=== PATIENT | male | born 1970 | race American Indian/Alaskan Native ===

== ENCOUNTER 2018-07-30 18:30 | Inpatient (IN) | payer OTHER, MEDICAID, SELFPAY ==
[2018-07-30 18:56] VITALS: BP 132/92; PULSE 97; RESP 20; TEMP 37.2; O2SAT 99; BMI 31.0
[2018-07-31] VITALS (33 sets, daily range): BP systolic 56–132; BP diastolic 31–96; PULSE 47–136; RESP 10–25; TEMP 36.2–37.5; O2SAT 78–98; BMI 31.0
--- NOTE | 2018-07-31 00:05 | ED.ABDPAIN ---
HPI - Abdominal Pain General Chief Complaint: Abdominal Pain Stated Complaint: severe abdominal pain Time Seen by Provider: 07/30/18 23:55 Source: patient Mode of arrival: ambulatory Limitations: no limitations History of Present Illness HPI narrative: The patient is a 47-year-old male who presents with vomiting and abdominal pain. He has been unable to keep anything down he has some right lower quadrant pain. As he says it started last night he has had some food today but really has vomited at least 5 times awaiting for the ER. His he has a history of kidney stones but has no back pain. He has not had any diarrhea no fever. No one else is sick at home. MD complaint: abdominal pain Related Data Previous Rx's Medication Instructions Recorded hydrocodone-acetaminophen 0 tab PO Q6HP PRN #15 tab 06/05/17 Allergies Allergy/AdvReac Type Severity Reaction Status Date / Time No Known Drug Allergies Allergy Verified 07/30/18 18:59 Review of Systems Review of Systems GENERAL: Denies chills, fatigue, malaise, fever, sweats, travel HEENT: Denies sinus pain, ear pain, sore throat, difficulty swallowing, neck pain RESPIRATORY: Denies dyspnea, cough, wheezing, hemoptysis, sputum. CARDIOVASCULAR: Denies chest pain, palpitations, orthopnea, edema GASTROINTESTINAL: See HPI : Denies dysuria, frequency, incontinence, hematuria, urinary retention, flank pain. MUSCULOSKELETAL: Denies weakness, joint pain, or bony pain SKIN: No rash, no erythema, no pruritus NEUROLOGIC: Denies weakness, dizziness, headache, numbness, change in speech, confusion PSYCHIATRIC: No concerning psychosocial issues. 12 point review of systems is negative except for those stated above and HPI [facility] Medical History Kidney stones (Acute) Tobacco use (Acute) Surgical History History of arthroscopic knee surgery (Acute) Social History Smoking Status: Current every day smoker Social History Smoking Status: Current every day smoker Exam Initial Vital Signs Initial Vital Signs: Vital Signs Temperature 98.9 F 03/16/19 18:56 Pulse Rate 97 H 07/30/18 18:56 Respiratory Rate 20 07/30/18 18:56 Blood Pressure 132/92 H 07/30/18 18:56 Pulse Oximetry 99 07/30/18 18:56 GENERAL: Patient actively vomiting pale diaphoretic HEENT: Head atraumatic,EOMI, pupils reactive, CARDIOVASCULAR: Regular rate and rhythm without murmurs, rubs or gallops. RESPIRATORY: Breath sounds equal bilaterally, no wheezes rales or rhonchi. ABDOMEN: Soft, diffusely tender no guarding no rebound no localization : No CVA tenderness EXTREMITIES: Normal range of motion, no clubbing or edema. Neurovascularly intact NEUROLOGICAL: Alert and oriented x4.Normal gait and speech. Cranial nerves II through XII grossly intact. SKIN: Warm, dry, no laceration, no petechiae, no rashes or lesions. Course Orders Ordered: ED Orders 07/31/18 00:06 CT abdomen pelvis w con Stat 07/31/18 00:30 Complete Blood Count AUTO DIFF Stat Comprehensive Metabolic Panel Stat Lipase Stat 07/31/18 01:33 Blood Culture Stat Lactate (Lactic Acid) Stat 07/31/18 02:17 Urine Drug Screen, Rapid Stat 07/31/18 02:22 Urinalysis and Microscopic Stat 07/31/18 03:50 Type and Screen Stat Sodium Chloride (Normal Saline 0.9%) 1,000 mls @ 1,000 mls/hr IV CONT ESTEE Last Infusion: 07/31/18 01:25 Dose: 0 mls/hr Admin: 07/31/18 00:42 Dose: 1,000 mls/hr Discontinued Medications Hydromorphone HCl (Dilaudid) 0.5 mg IV NOW ONE Stop: 07/31/18 03:03 Last Admin: 07/31/18 03:05 Dose: 0.5 mg Hydromorphone HCl (Dilaudid) 1 mg IV NOW ONE Stop: 07/31/18 03:57 Last Admin: 07/31/18 04:06 Dose: 1 mg Sodium Chloride (Normal Saline 0.9%) 1,000 mls @ 1,000 mls/hr IV BOLUS ONE Stop: 07/31/18 02:03 Last Infusion: 07/31/18 03:56 Dose: 0 mls/hr Admin: 07/31/18 01:30 Dose: 1,000 mls/hr Sodium Chloride (Normal Saline 0.9%) 1,000 mls @ 1,000 mls/hr IV BOLUS ONE Stop: 07/31/18 04:01 Last Admin: 07/31/18 03:06 Dose: 1,000 mls/hr Ketorolac Tromethamine (Toradol) 30 mg IV NOW ONE Stop: 07/31/18 00:06 Last Admin: 07/31/18 00:42 Dose: 30 mg Morphine Sulfate (Morphine) 2 mg IV NOW ONE Stop: 07/31/18 01:13 Last Admin: 07/31/18 01:30 Dose: 2 mg Ondansetron HCl (Zofran) 4 mg IV NOW ONE Stop: 07/31/18 00:06 Last Admin: 07/31/18 00:42 Dose: 4 mg Ondansetron HCl (Zofran) 4 mg IV NOW ONE Stop: 07/31/18 01:13 Last Admin: 07/31/18 02:11 Dose: 4 mg Pantoprazole Sodium (Protonix) 40 mg IV NOW ONE Stop: 07/31/18 00:06 Last Admin: 07/31/18 00:43 Dose: 40 mg Vital Signs - 8 hr 07/31/18 00:52 07/31/18 02:39 07/31/18 03:54 Pulse Rate 136 H 123 H 129 H Respiratory Rate 25 H 17 22 Blood Pressure [Right Arm] 116/84 131/83 132/96 H Pulse Oximetry 92 93 92 MDM - Abdominal Pain Lab Data Attestation: I reviewed the patient's lab results. Result diagrams: 07/31/18 00:30 07/31/18 00:30 Lab Results 07/31/18 07/31/18 07/31/18 Range/Units 00:30 00:30 01:33 WBC 22.4 H (4.5-11.0) X10^3/uL RBC 5.84 (4.5-5.9) X10^6/uL Hgb 17.4 (13.5-17.5) g/dL Hct 52.1 (41-53) % MCV 89.2 (80-100) fL MCH 29.9 (26-34) PG MCHC 33.5 (30-36) % RDW 13.9 (11.6-14.8) % Plt Count 403 H (150-400) X10^3/uL Neut % (Auto) 88.9 H (50-75) % Lymph % (Auto) 4.3 L (25-40) % [place] % (Auto) 6.4 (3-14) % Eos % (Auto) 0.1 L (2-4) % Baso % (Auto) 0.3 (0-2) % Neut # (Auto) 07633 H (3981-5268) /uL Lymph # (Auto) 1000 L (8076-9799) /uL [place] # (Auto) 1400 H (0-900) /uL Eos # (Auto) 0 (0-450) /uL Baso # (Auto) 100 (0-100) /uL Sodium 142 (137-145) mmol/L Potassium 4.2 (3.4-5.1) mmol/L Chloride 98 (98-107) mmol/L Carbon Dioxide 30 (22-32) mmol/L BUN 18 (9-20) mg/dL Creatinine 1.70 H (0.66-1.25) mg/dL Estimated GFR 43.6 L (>60) mL/min BUN/Creatinine Ratio 10.6 (6-22) Glucose 125 H (70-100) mg/dL Lactate 1.3 (0.7-2.1) mmol/L Calcium 10.1 (8.4-10.2) mg/dL Total Bilirubin 1.3 (0.2-1.3) mg/dL AST 29 (17-59) IU/L ALT 26 (21-72) IU/L Alkaline Phosphatase 94 (38-126) U/L Total Protein 8.4 H (6.3-8.2) g/dL Albumin 4.8 (3.5-5.0) g/dL Globulin 3.6 (1.7-4.1) g/dL Albumin/Globulin Ratio 1.3 (1.0-2.8) Lipase 58 (23-300) U/L Urine Color Urine Appearance Urine pH (4.5-8.0) Ur Specific [place] (1.000-1.035) Urine Protein (Negative) Urine Glucose (UA) (Negative) g/dL Urine Ketones (NEGATIVE) Urine Occult Blood (Negative) Urine Nitrate (Negative) Urine Bilirubin (NEGATIVE) Urine Urobilinogen (0.2) E.U./dL Ur Leukocyte Esterase (NEGATIVE) Urine RBC (0-5/HPF) Urine WBC (0-5/HPF) Calcium Oxalate Crystal (None) Urine Bacteria (None) Ur Culture Indicated? 07/31/18 Range/Units 02:22 WBC (4.5-11.0) X10^3/uL RBC (4.5-5.9) X10^6/uL Hgb (13.5-17.5) g/dL Hct (41-53) % MCV (80-100) fL MCH (26-34) PG MCHC (30-36) % RDW (11.6-14.8) % Plt Count (150-400) X10^3/uL Neut % (Auto) (50-75) % Lymph % (Auto) (25-40) % [place] % (Auto) (3-14) % Eos % (Auto) (2-4) % Baso % (Auto) (0-2) % Neut # (Auto) (9654-7325) /uL Lymph # (Auto) (5515-9521) /uL [place] # (Auto) (0-900) /uL Eos # (Auto) (0-450) /uL Baso # (Auto) (0-100) /uL Sodium (137-145) mmol/L Potassium (3.4-5.1) mmol/L Chloride (98-107) mmol/L Carbon Dioxide (22-32) mmol/L BUN (9-20) mg/dL Creatinine (0.66-1.25) mg/dL Estimated GFR (>60) mL/min BUN/Creatinine Ratio (6-22) Glucose (70-100) mg/dL Lactate (0.7-2.1) mmol/L Calcium (8.4-10.2) mg/dL Total Bilirubin (0.2-1.3) mg/dL AST (17-59) IU/L ALT (21-72) IU/L Alkaline Phosphatase (38-126) U/L Total Protein (6.3-8.2) g/dL Albumin (3.5-5.0) g/dL Globulin (1.7-4.1) g/dL Albumin/Globulin Ratio (1.0-2.8) Lipase (23-300) U/L Urine Color Yellow Urine Appearance Clear Urine pH 6.5 (4.5-8.0) Ur Specific [place] 1.010 (1.000-1.035) Urine Protein Trace H (Negative) Urine Glucose (UA) Trace H (Negative) g/dL Urine Ketones Negative (NEGATIVE) Urine Occult Blood Trace-intact (Negative) Urine Nitrate Negative (Negative) Urine Bilirubin Negative (NEGATIVE) Urine Urobilinogen 1.0 (0.2) E.U./dL Ur Leukocyte Esterase Negative (NEGATIVE) Urine RBC 0-1/hpf (0-5/HPF) Urine WBC None seen (0-5/HPF) Calcium Oxalate Crystal Few H (None) Urine Bacteria None seen (None) Ur Culture Indicated? Cult not indicated Imaging Data CT scan - abdomen: Radiologist's impression: retail shift leader report: Free air throughout the abdomen with small amount of ascites worrisome for abdominal viscus perforation. Thickening of the summers of pylorus of the stomach could indicate gastric ulcer as a source of perforation. Cecal wall thickening in. Cecal fluid also noted with normal appearing appendix. Cecal abnormality could also cause of perforation MDM Narrative Medical decision making narrative: Patient persistently tachycardic despite pain meds. Leukocytosis noted. His added on lactate and blood cultures. Lactate is within normal limits. Continues to be intermittently nauseated with some occasional vomiting. Dr. Carlson called notified of patient's symptoms test results and CT results. Dr. Carlson will be in shortly to see and evaluate patient. Patient going directly to OR. Discharge Plan Departure Patient Disposition: Admitted As Inpatient Clinical Impression: Perforation bowel Admit Date/Time: 07/31/18 03:38 Admit Provider: Marquez Carlson
--- NOTE | 2018-07-31 00:06 | DI.CT.S_ITS ---
PROCEDURE: CT ABDOMEN PELVIS W CON INDICATIONS: abdominal pain TECHNIQUE: After the administration of intravenous contrast, 5 mm thick sections acquired from the diaphragm to the symphysis. 5 mm coronal and sagittal reformats were acquired. For radiation dose reduction, the following was used: automated exposure control, adjustment of mA and/or kV according to patient size. COMPARISON: [facility], CT, KIDNEY/ URETER/BLADDER, 03/25/2015, 5:13. FINDINGS: Image quality: Excellent. ABDOMEN: Lung bases: Moderate bibasilar groundglass airspace opacities. Heart size is normal. Solid organs: Liver is normal in size and enhancement. Gallbladder is within normal limits. Biliary system is non dilated. Pancreas enhances normally. Spleen is normal in size and enhancement. No adrenal nodules. Kidneys demonstrate normal size and enhancement, without hydronephrosis. Peritoneum and bowel: The stomach is moderately distended. There is moderate thickening of the gastric antrum, pylorus, and proximal duodenum. Mildly distended and fluid-filled small bowel loops within the left hemiabdomen are present. Appendix is normal. Colon is nondistended. There is a small amount of intermediate density free fluid within the pelvis and perihepatic location. There is a small amount of pneumoperitoneum, predominantly within the upper abdomen. Nodes and vessels: No retroperitoneal or mesenteric adenopathy by size criteria. Aorta and inferior vena cava are normal in size. Miscellaneous: No ventral hernias. PELVIS: Genitourinary: Bladder wall thickness is normal. Miscellaneous: No inguinal hernias or adenopathy. Bones: No suspicious bony lesions. No vertebral body compression fractures. IMPRESSION: 1. Pneumoperitoneum and intermediate density free fluid within the abdomen and pelvis, indicating bowel rupture. Given the upper gastrointestinal tract thickening, this may be the source. 2. Bibasilar pneumonia. 3. Concordant with preliminary interpretation. Dictated by: Ulisses Vilchis M.D. on 07/31/2018 at 10:24 Approved by: Ulisses Vilchis M.D. on 07/31/2018 at 10:28
--- NOTE | 2018-07-31 00:09 | ED_ITS ---
HPI - Abdominal Pain General Chief Complaint: Abdominal Pain Stated Complaint: severe abdominal pain Time Seen by Provider: 07/30/18 23:55 Source: patient Mode of arrival: ambulatory Limitations: no limitations History of Present Illness HPI narrative: The patient is a 47-year-old male who presents with vomiting and abdominal pain. He has been unable to keep anything down he has some right lower quadrant pain. As he says it started last night he has had some food today but really has vomited at least 5 times awaiting for the ER. His he has a history of kidney stones but has no back pain. He has not had any diarrhea no fever. No one else is sick at home. MD complaint: abdominal pain Related Data Previous Rx's Medication Instructions Recorded hydrocodone-acetaminophen 0 tab PO Q6HP PRN #15 tab 06/05/17 Allergies Allergy/AdvReac Type Severity Reaction Status Date / Time No Known Drug Allergies Allergy Verified 07/30/18 18:59 Review of Systems Review of Systems GENERAL: Denies chills, fatigue, malaise, fever, sweats, travel HEENT: Denies sinus pain, ear pain, sore throat, difficulty swallowing, neck pa in RESPIRATORY: Denies dyspnea, cough, wheezing, hemoptysis, sputum. CARDIOVASCULAR: Denies chest pain, palpitations, orthopnea, edema GASTROINTESTINAL: See HPI : Denies dysuria, frequency, incontinence, hematuria, urinary retention, flank pain. MUSCULOSKELETAL: Denies weakness, joint pain, or bony pain SKIN: No rash, no erythema, no pruritus NEUROLOGIC: Denies weakness, dizziness, headache, numbness, change in speech, confusion PSYCHIATRIC: No concerning psychosocial issues. 12 point review of systems is negative except for those stated above and HPI PFSH Medical History Kidney stones (Acute) Tobacco use (Acute) Surgical History History of arthroscopic knee surgery (Acute) Social History Smoking Status: Current every day smoker Social History Smoking Status: Current every day smoker Exam Initial Vital Signs Initial Vital Signs: Vital Signs Temperature 98.9 F 07/30/18 18:56 Pulse Rate 97 H 03/16/19 18:56 Respiratory Rate 20 07/30/18 18:56 Blood Pressure 132/92 H 07/30/18 18:56 Pulse Oximetry 99 07/30/18 18:56 GENERAL: Patient actively vomiting pale diaphoretic HEENT: Head atraumatic,EOMI, pupils reactive, CARDIOVASCULAR: Regular rate and rhythm without murmurs, rubs or gallops. RESPIRATORY: Breath sounds equal bilaterally, no wheezes rales or rhonchi. ABDOMEN: Soft, diffusely tender no guarding no rebound no localization : No CVA tenderness EXTREMITIES: Normal range of motion, no clubbing or edema. Neurovascularly intact NEUROLOGICAL: Alert and oriented x4.Normal gait and speech. Cranial nerves II through XII grossly intact. SKIN: Warm, dry, no laceration, no petechiae, no rashes or lesions. Course Orders Ordered: ED Orders 07/31/18 00:06 CT abdomen pelvis w con Stat 07/31/18 00:30 Complete Blood Count AUTO DIFF Stat Comprehensive Metabolic Panel Stat Lipase Stat 07/31/18 01:33 Blood Culture Stat Lactate (Lactic Acid) Stat 07/31/18 02:17 Urine Drug Screen, Rapid Stat 07/31/18 02:22 Urinalysis and Microscopic Stat 07/31/18 03:50 Type and Screen Stat Sodium Chloride (Normal Saline 0.9%) 1,000 mls @ 1,000 mls/hr IV CONT ESTEE Last Infusion: 07/31/18 01:25 Dose: 0 mls/hr Admin: 07/31/18 00:42 Dose: 1,000 mls/hr Discontinued Medications Hydromorphone HCl (Dilaudid) 0.5 mg IV NOW ONE Stop: 07/31/18 03:03 Last Admin: 07/31/18 03:05 Dose: 0.5 mg Hydromorphone HCl (Dilaudid) 1 mg IV NOW ONE Stop: 07/31/18 03:57 Last Admin: 07/31/18 04:06 Dose: 1 mg Sodium Chloride (Normal Saline 0.9%) 1,000 mls @ 1,000 mls/hr IV BOLUS ONE Stop: 07/31/18 02:03 Last Infusion: 07/31/18 03:56 Dose: 0 mls/hr Admin: 07/31/18 01:30 Dose: 1,000 mls/hr Sodium Chloride (Normal Saline 0.9%) 1,000 mls @ 1,000 mls/hr IV BOLUS ONE Stop: 07/31/18 04:01 Last Admin: 07/31/18 03:06 Dose: 1,000 mls/hr Ketorolac Tromethamine (Toradol) 30 mg IV NOW ONE Stop: 07/31/18 00:06 Last Admin: 07/31/18 00:42 Dose: 30 mg Morphine Sulfate (Morphine) 2 mg IV NOW ONE Stop: 07/31/18 01:13 Last Admin: 07/31/18 01:30 Dose: 2 mg Ondansetron HCl (Zofran) 4 mg IV NOW ONE Stop: 07/31/18 00:06 Last Admin: 07/31/18 00:42 Dose: 4 mg Ondansetron HCl (Zofran) 4 mg IV NOW ONE Stop: 07/31/18 01:13 Last Admin: 07/31/18 02:11 Dose: 4 mg Pantoprazole Sodium (Protonix) 40 mg IV NOW ONE Stop: 07/31/18 00:06 Last Admin: 07/31/18 00:43 Dose: 40 mg Vital Signs - 8 hr 07/31/18 00:52 07/31/18 02:39 07/31/18 03:54 Pulse Rate 136 H 123 H 129 H Respiratory Rate 25 H 17 22 Blood Pressure [Right Arm] 116/84 131/83 132/96 H Pulse Oximetry 92 93 92 MDM - Abdominal Pain Lab Data Attestation: I reviewed the patient's lab results. Result diagrams: 07/31/18 00:30 07/31/18 00:30 Lab Results 07/31/18 07/31/18 07/31/18 Range/Units 00:30 00:30 01:33 WBC 22.4 H (4.5-11.0) X10^3/uL RBC 5.84 (4.5-5.9) X10^6/uL Hgb 17.4 (13.5-17.5) g/dL Hct 52.1 (41-53) % MCV 89.2 (80-100) fL MCH 29.9 (26-34) PG MCHC 33.5 (30-36) % RDW 13.9 (11.6-14.8) % Plt Count 403 H (150-400) X10^3/uL Neut % (Auto) 88.9 H (50-75) % Lymph % (Auto) 4.3 L (25-40) % [place] % (Auto) 6.4 (3-14) % Eos % (Auto) 0.1 L (2-4) % Baso % (Auto) 0.3 (0-2) % Neut # (Auto) 83273 H (3952-4839) /uL Lymph # (Auto) 1000 L (3851-6398) /uL [place] # (Auto) 1400 H (0-900) /uL Eos # (Auto) 0 (0-450) /uL Baso # (Auto) 100 (0-100) /uL Sodium 142 (137-145) mmol/L Potassium 4.2 (3.4-5.1) mmol/L Chloride 98 (98-107) mmol/L Carbon Dioxide 30 (22-32) mmol/L BUN 18 (9-20) mg/dL Creatinine 1.70 H (0.66-1.25) mg/dL Estimated GFR 43.6 L (>60) mL/min BUN/Creatinine Ratio 10.6 (6-22) Glucose 125 H (70-100) mg/dL Lactate 1.3 (0.7-2.1) mmol/L Calcium 10.1 (8.4-10.2) mg/dL Total Bilirubin 1.3 (0.2-1.3) mg/dL AST 29 (17-59) IU/L ALT 26 (21-72) IU/L Alkaline Phosphatase 94 (38-126) U/L Total Protein 8.4 H (6.3-8.2) g/dL Albumin 4.8 (3.5-5.0) g/dL Globulin 3.6 (1.7-4.1) g/dL Albumin/Globulin Ratio 1.3 (1.0-2.8) Lipase 58 (23-300) U/L Urine Color Urine Appearance Urine pH (4.5-8.0) Ur Specific [place] (1.000-1.035) Urine Protein (Negative) Urine Glucose (UA) (Negative) g/dL Urine Ketones (NEGATIVE) Urine Occult Blood (Negative) Urine Nitrate (Negative) Urine Bilirubin (NEGATIVE) Urine Urobilinogen (0.2) E.U./dL Ur Leukocyte Esterase (NEGATIVE) Urine RBC (0-5/HPF) Urine WBC (0-5/HPF) Calcium Oxalate Crystal (None) Urine Bacteria (None) Ur Culture Indicated? 07/31/18 Range/Units 02:22 WBC (4.5-11.0) X10^3/uL RBC (4.5-5.9) X10^6/uL Hgb (13.5-17.5) g/dL Hct (41-53) % MCV (80-100) fL MCH (26-34) PG MCHC (30-36) % RDW (11.6-14.8) % Plt Count (150-400) X10^3/uL Neut % (Auto) (50-75) % Lymph % (Auto) (25-40) % [place] % (Auto) (3-14) % Eos % (Auto) (2-4) % Baso % (Auto) (0-2) % Neut # (Auto) (3827-2697) /uL Lymph # (Auto) (1181-7383) /uL [place] # (Auto) (0-900) /uL Eos # (Auto) (0-450) /uL Baso # (Auto) (0-100) /uL Sodium (137-145) mmol/L Potassium (3.4-5.1) mmol/L Chloride (98-107) mmol/L Carbon Dioxide (22-32) mmol/L BUN (9-20) mg/dL Creatinine (0.66-1.25) mg/dL Estimated GFR (>60) mL/min BUN/Creatinine Ratio (6-22) Glucose (70-100) mg/dL Lactate (0.7-2.1) mmol/L Calcium (8.4-10.2) mg/dL Total Bilirubin (0.2-1.3) mg/dL AST (17-59) IU/L ALT (21-72) IU/L Alkaline Phosphatase (38-126) U/L Total Protein (6.3-8.2) g/dL Albumin (3.5-5.0) g/dL Globulin (1.7-4.1) g/dL Albumin/Globulin Ratio (1.0-2.8) Lipase (23-300) U/L Urine Color Yellow Urine Appearance Clear Urine pH 6.5 (4.5-8.0) Ur Specific [place] 1.010 (1.000-1.035) Urine Protein Trace H (Negative) Urine Glucose (UA) Trace H (Negative) g/dL Urine Ketones Negative (NEGATIVE) Urine Occult Blood Trace-intact (Negative) Urine Nitrate Negative (Negative) Urine Bilirubin Negative (NEGATIVE) Urine Urobilinogen 1.0 (0.2) E.U./dL Ur Leukocyte Esterase Negative (NEGATIVE) Urine RBC 0-1/hpf (0-5/HPF) Urine WBC None seen (0-5/HPF) Calcium Oxalate Crystal Few H (None) Urine Bacteria None seen (None) Ur Culture Indicated? 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 Thickening of the summers of pylorus of the stomach could indicate gastric ulcer as a source of perforation. Cecal wall thickening in. Cecal fluid also noted with normal appearing appendix. Cecal abnormality could also cause of perforation MDM Narrative Medical decision making narrative: Patient persistently tachycardic despite pain meds. Leukocytosis noted. His added on lactate and blood cultures. Lactate is within normal limits. Continues to be intermittently nauseated with some occasional vomiting. Dr. Carlson called notified of patient's symptoms test results and CT results. Dr. Carlson will be in shortly to see and evaluate patient. Patient going directly to OR. Discharge Plan Departure Patient Disposition: Admitted As Inpatient Clinical Impression: Perforation bowel Admit Date/Time: 07/31/18 03:38 Admit Provider: Marquez Carlson
[2018-07-31] MEDS: ONDANSETRON 4 MG/2 ML INJ IV ×2 (00:42→02:11)
[2018-07-31] MEDS: SODIUM CHLORIDE 0.9% 1,000 ML 1000 ML IV ×4 (00:42→10:40)
[2018-07-31] MEDS: KETOROLAC 60 MG/2 ML VIAL 30 MG IV (00:42)
[2018-07-31] MEDS: PANTOPRAZOLE 40 MG VIAL IV ×2 (00:43→06:14)
[2018-07-31 00:46] LABS: Add Manual Diff / Slide Review NO; Basophils Absolute Auto 100 /uL (0-100); Basophils Percent Auto 0.3 % (0-2); Eosinophils Absolute Auto 0 /uL (0-450); Eosinophils Percent Auto 0.1 % (2-4); Hematocrit 52.1 % (41-53); Hemoglobin 17.4 g/dL (13.5-17.5); Lymphocytes Absolute Auto 1000 /uL (1100-4500); Lymphocytes Percent Auto 4.3 % (25-40); Mean Corpuscular HGB Conc 33.5 % (30-36); Mean Corpuscular Hemoglobin 29.9 PG (26-34); Mean Corpuscular Volume 89.2 fL (80-100); Monocytes Absolute Auto 1400 /uL (0-900); Monocytes Percent Auto 6.4 % (3-14); Neutrophils Absolute Auto 19900 /uL (1500-7000); Neutrophils Percent Auto 88.9 % (50-75); Platelet Count 403 X10^3/uL (150-400); Red Blood Cell Count 5.84 X10^6/uL (4.5-5.9); Red Cell Distribution Width 13.9 % (11.6-14.8); White Blood Cell Count 22.4 X10^3/uL (4.5-11.0)
[2018-07-31 00:53] LABS: Alanine Aminotransferase 26 IU/L (21-72); Albumin 4.8 g/dL (3.5-5.0); Albumin Globulin Ratio 1.3 (1.0-2.8); Alkaline Phosphatase 94 U/L (38-126); Aspartate Aminotransferase 29 IU/L (17-59); BUN Creatinine Ratio 10.6 (6-22); Bilirubin Total 1.3 mg/dL (0.2-1.3); Blood Urea Nitrogen 18 mg/dL (9-20); Calcium 10.1 mg/dL (8.4-10.2); Carbon Dioxide 30 mmol/L (22-32); Chloride 98 mmol/L (98-107); Estimated Glomerular Filt Rate 43.6 mL/min (>60); Globulin 3.6 g/dL (1.7-4.1); Glucose 125 mg/dL (70-100); HEMOLYSIS < 15 (0-50); Lipase 58 U/L (23-300); Potassium 4.2 mmol/L (3.4-5.1); Sodium 142 mmol/L (137-145); Total Protein 8.4 g/dL (6.3-8.2)
[2018-07-31] MEDS: MORPHINE 2 MG/ML INJ IV (01:30)
[2018-07-31 01:49] LABS: Lactate (Lactic Acid) 1.3 mmol/L (0.7-2.1)
[2018-07-31 02:38] LABS: Bacteria Urine None Seen; WBC Urine None Seen (0-5/HPF)
[2018-07-31 02:39] LABS: Appearance Urine UA CLEAR; Bilirubin Urine UA NEGATIVE (NEGATIVE); Color Urine UA YELLOW; Glucose Urine UA TRACE g/dL (Negative); Ketones Urine UA NEGATIVE (NEGATIVE); Leukocyte Esterase Urine UA NEGATIVE (NEGATIVE); Nitrite Urine UA NEGATIVE (Negative); Occult Blood Urine UA TRACE-INTACT (Negative); Protein Urine UA TRACE (Negative); pH Urine UA 6.5 (4.5-8.0)
[2018-07-31] MEDS: HYDROMORPHONE 1 MG INJ 0.5 MG IV (03:05)
[2018-07-31 03:20] LABS: Calcium Oxalate Crystals Urine Few; Culture Indicated Urine Cult Not Indicated; RBC Urine 0-1/HPF (0-5/HPF)
[2018-07-31] MEDS: HYDROMORPHONE 0.5 MG INJ 1 MG IV (04:06)
--- NOTE | 2018-07-31 04:11 | PM.HP.1 ---
History of Present Illness Date Patient Seen: 07/31/18 Time Patient Seen: 03:40 Chief complaint: severe abdominal pain Narrative: 47-year-old gentleman who presented the emergency department several hours ago with approximately 36 hr history of acute onset abdominal pain that has been progressive and more severe in nature over the last 12-24 hours. He states that he has never had any kind episodes similar in the past. No fever or chills. He has had some nausea and vomiting earlier today. Describes the emesis is nonbloody and nonbilious. He has been progressively anorexic. He last ate a regular meal yesterday afternoon then drank a small amount of ice tea last night. He has had nothing since. His abdominal pain is described as quite sharp and unrelenting in nature. Pain is exacerbated with ambulation or cough. He has noticed subjective progressive distention of his abdomen as well. No dysuria or hematuria. No flatus throughout the day since last evening. Last bowel movement was yesterday morning and described as normal. No melena, hematochezia, or bright red blood per rectum. Two days ago he states he was in his usual state of health. Currently denies any chest pain or shortness of breath. No back pain. Patient History Medical History Kidney stones (Acute) Tobacco use (Acute) Surgical History History of arthroscopic knee surgery (Acute) Social History Smoking Status: Current every day smoker Family & Social History Safety & Behavioral: Feels Safe in Current Yes Environment Been Physically Hurt or No Threatened By a Person Tobacco & Substance use: Smoking Status Current every day smoker alcohol intake frequency 0-2 drinks per day Substance Use Type marijuana patient and his are essentially homeless and sleep in their vehicle. Meds Home Medications Medication Instructions Recorded Confirmed Type hydrocodone-acetaminophen 0 tab PO Q6HP PRN #15 tab 06/05/17 Rx Allergies Allergy/AdvReac Type Severity Reaction Status Date / Time No Known Drug Allergies Allergy Verified 07/30/18 18:59 Review of Systems Review of Systems All systems reviewed & are unremarkable except as noted in HPI and below Exam Vital Signs (past 8 hours): - 07/31/18 00:52 07/31/18 02:39 07/31/18 03:54 Pulse Rate 136 H 123 H 129 H Respiratory Rate 25 H 17 22 Blood Pressure [Right Arm] 116/84 131/83 132/96 H Pulse Oximetry 92 93 92 Oxygen Delivery Method Room Air Narrative Exam Narrative: Well-nourished well-developed moderately obese male sitting upright on the gurney in the emergency department appearing acutely ill. He is obviously uncomfortable. Mildly tachypneic. He is alert oriented x3 however. Converses normally. is at the bedside for my entire visit. Sclera nonicteric neck is supple chest clear to auscultation although he has diminished breath sounds bilaterally at the bases. Inspiratory effort is minimal due to discomfort. No crackles or wheezes. he is significantly tachycardic with a heart rate in the 120s. Monitor shows him to be in sinus rhythm however. Mildly hypertensive with a diastolic blood pressure of 96. room air saturation 92%. Abdomen is markedly distended and tympanitic. He is diffusely tender. No bowel sounds. He is most tender in the right lateral abdomen with involuntary guarding. However, he is also significantly tender in the epigastrium. Movement of the abdominal wall and pelvis elicit some discomfort consistent with peritoneal irritation. extremities show no clubbing or cyanosis Objective Labs Result Diagrams: 07/31/18 00:30 07/31/18 00:30 Labs: Laboratory Results - last 24 hr 07/31/18 07/31/18 07/31/18 00:30 00:30 01:33 WBC 22.4 H RBC 5.84 Hgb 17.4 Hct 52.1 MCV 89.2 MCH 29.9 MCHC 33.5 RDW 13.9 Plt Count 403 H Neut % (Auto) 88.9 H Lymph % (Auto) 4.3 L [place] % (Auto) 6.4 Eos % (Auto) 0.1 L Baso % (Auto) 0.3 Neut # (Auto) 72365 H Lymph # (Auto) 1000 L [place] # (Auto) 1400 H Eos # (Auto) 0 Baso # (Auto) 100 Sodium 142 Potassium 4.2 Chloride 98 Carbon Dioxide 30 BUN 18 Creatinine 1.70 H Estimated GFR 43.6 L BUN/Creatinine Ratio 10.6 Glucose 125 H Lactate 1.3 Calcium 10.1 Total Bilirubin 1.3 AST 29 ALT 26 Alkaline Phosphatase 94 Total Protein 8.4 H Albumin 4.8 Globulin 3.6 Albumin/Globulin Ratio 1.3 Lipase 58 Urine Color Urine Appearance Urine pH Ur Specific [place] Urine Protein Urine Glucose (UA) Urine Ketones Urine Occult Blood Urine Nitrate Urine Bilirubin Urine Urobilinogen Ur Leukocyte Esterase Urine RBC Urine WBC Calcium Oxalate Crystal Urine Bacteria Ur Culture Indicated? 07/31/18 02:22 WBC RBC Hgb Hct MCV MCH MCHC RDW Plt Count Neut % (Auto) Lymph % (Auto) [place] % (Auto) Eos % (Auto) Baso % (Auto) Neut # (Auto) Lymph # (Auto) [place] # (Auto) Eos # (Auto) Baso # (Auto) Sodium Potassium Chloride Carbon Dioxide BUN Creatinine Estimated GFR BUN/Creatinine Ratio Glucose Lactate Calcium Total Bilirubin AST ALT Alkaline Phosphatase Total Protein Albumin Globulin Albumin/Globulin Ratio Lipase Urine Color Yellow Urine Appearance Clear Urine pH 6.5 Ur Specific [place] 1.010 Urine Protein Trace H Urine Glucose (UA) Trace H Urine Ketones Negative Urine Occult Blood Trace-intact Urine Nitrate Negative Urine Bilirubin Negative Urine Urobilinogen 1.0 Ur Leukocyte Esterase Negative Urine RBC 0-1/hpf Urine WBC None seen Calcium Oxalate Crystal Few H Urine Bacteria None seen Ur Culture Indicated? Cult not indicated I have personally reviewed his CT scan of the abdomen and pelvis done in the emergency department prior to my arrival. Patient has some atelectasis in the bilateral lung wilson. There is free fluid over the dome of the liver and under the diaphragm. There is free air along the falciform ligament and along the gastrohepatic ligament in the lesser sac region. Free air under the diaphragm as well. Thickening of the distal stomach and pylorus are seen. No obvious perforation at that level however. Stomach is dilated containing significant fluid. Small-bowel otherwise appears normal in caliber. Kidneys have nonobstructing calcified stones bilaterally. The sigmoid colon and descending colon appear otherwise normal. There is some thickening around the cecum but the appendix appears to be grossly normal. Great vessels are otherwise unremarkable. Assessment & Plan Assessment & Plan narrative: 47-year-old male with perforated viscus. I suspect perforated ulcer. Possibility of perforated cecal diverticulitis although this would be much less common. I doubt perforated sigmoid diverticulitis but this is also possible. Patient clearly has peritonitis and early onset of sepsis although his lactic acid is currently normal. Nevertheless he is significantly hypovolemic and volume contracted with a creatinine of 1.7 and significant tachycardia. He is in the process of receiving at least his 3rd L of isotonic fluid. Obviously, he requires emergent laparotomy with ongoing fluid resuscitation. I described the nature of that operation to him and his . He clearly will require postoperative ICU care as well. He may also need ventilatory support for some period of time following surgery as we manage his ongoing fluid shifts and sepsis. Again, I discussed this with him. Technical details of laparotomy with potential bowel resection were discussed. I clearly explained, however, that at this point I am not entirely certain as to the site of the perforation. He understands that if this represents perforated ulcer disease that we may be able to simply over-sew and patch the region. If this is perforated diverticulitis that he may require bowel resection with ostomy formation. If ostomy is needed he understands this would be temporary and could be eventually reversed in the future once he has completely recovered and healed. He also understands the risk of not operating would be almost certain due to peritonitis and overwhelming sepsis. He is agreeable to surgery this evening. I have discussed other risks of the operation with him as well. These risks include but are not limited to anesthesia, bleeding, need for transfusion, pain, scar, poor wound healing, wound infection, intra-abdominal infection, abscesses, need for drains, incisional hernias, bowel leakage, bowel injury, ureter injury, bladder injury, need for further procedures, need for further major abdominal surgery were all discussed in detail. I also explained there is a small possibility of . He understands the gravity of the situation, especially given his current physiological status. All questions were answered to his satisfaction, and he agreed to proceed. Consent was placed on the chart. Orders were written.
--- NOTE | 2018-07-31 04:25 | PC.NURSE ---
Attempted to insert NGT with 18 F, was unable to pass. Attempted a second time with 16 F, still was unable to pass tube. access nurse Dana attempted as well, pt vomited copious dark red emesis. Dana stated they will place tube in surgery. Pt transferred to surgery with Dana and HOUSE [employer]ISTRY RN.
--- NOTE | 2018-07-31 04:29 | PM.PREOP ---
Pre-operative Note Interval Note History & Physical reviewed/Exam performed by Physician: Yes Changes to H&P: No H&P completed within 30 days and has changed as indicated here:: Patient seen and examined in the emergency department again in the preoperative area. History physical examination is on the chart. Obviously, there have been no changes within the last hour. We will proceed with emergent laparotomy as planned.
[2018-07-31] MEDS: LACTATED RINGERS 1,000 ML 42 ML IV ×10 (04:35→07:01)
[2018-07-31] MEDS: metroNIDAZOLE 500 MG/100 ML PIGGYBACK 100 MG IV ×3 (04:50→21:17)
[2018-07-31] MEDS: CEFOTETAN 2 GM/50 ML PIGGYBACK IV (05:06)
[2018-07-31 05:33] LABS: Urine Amphetamines Positive (Negative); Urine Barbiturates Negative (Negative); Urine Benzodiazepines Negative (Negative); Urine Cocaine Negative (Negative); Urine MDMA Negative (Negative); Urine Methadone Negative (Negative); Urine Methamphetamines Positive (Negative); Urine Morphine/Opi cutoff 2000 Positive (Negative); Urine Oxycodone Negative (Negative); Urine Phencyclidine Negative (Negative); Urine Tetrahydrocannabinol Positive (Negative); Urine Tricyclic Antidepressant Negative (Negative)
--- NOTE | 2018-07-31 05:42 | SUR.OPER ---
Supine on padded OR bed, head on pillow, arms secured on padded arm boards at <90 degrees abduction, legs uncrossed, safety belt at thigh, tape over blanket over lower legs.
--- NOTE | 2018-07-31 05:45 | SUR.HOLD ---
lATE ENTRY: Pt brought from ER to PACU prior to OR, Dr. Carlson placed NGT and Dr Strauss premedicated pt with Katamine and Midaolam. Pt left for OR soon after in stable condition.
--- NOTE | 2018-07-31 07:52 | SUR.OPER ---
epidural placed at end of case at 0745
--- NOTE | 2018-07-31 08:00 | PM.OP.1 ---
Operative Date/Time/Diagnoses Date of procedure: 07/31/18 Time of procedure: 08:00 Pre-op diagnosis: Perforated viscus Post-op diagnosis: other (Perforated duodenal ulcer in the 1st portion of the anterior wall just beyond the pylorus with gross peritonitis) Procedure & Clinicians Procedure: Exploratory laparotomy with 2 layer closure of perforated duodenal ulcer and omental patch Same procedure as scheduled: Yes Indications: 47-year-old male who presented the emergency department with progressive abdominal pain and nausea. Imaging demonstrated free air throughout the abdomen. Emergency laparotomy was recommended. Surgeon: Marquez Carlson Click Yes if Unassisted: Yes Anesthesia Type: General and Epidural (Placed postoperatively per Anesthesiology for analgesia management) Operative Notes Findings: 1. Gross purulent peritonitis throughout the abdomen extending along the right paracolic gutter into the pelvis 2. Gross leakage of gastric and bilious fluid throughout the entire right upper quadrant and subhepatic space from approximately 1 cm perforated anterior duodenal ulcer 3. Grossly normal liver and gallbladder although the gallbladder was somewhat inflamed due to adjacent peritonitis and perforated ulcer 4. Apparent air tight closure of the ulcer at the conclusion of the case without evidence of leakage Closure Type: primary Specimen(s): other (Peritoneal fluid for Gram stain and culture) Prosthetic devices, grafts, tissues, transplants, or devices: None Applied: drain(s) (Ten Icelandic Jose-Sanchez in subhepatic space adjacent to ulcer repair placed to bulb suction) Estimated Blood Loss (mL): 50 Blood products transfused: none Procedure in detail: After obtaining informed consent the patient was brought to the operating room and placed supine on the table. A nasogastric tube had been inserted in the preoperative area by me personally without difficulty. Patient tolerated it well and there was immediate return of bilious fluid. After decompressing the stomach he was then placed under general anesthesia. A Mendiola catheter was inserted to decompress the urinary bladder. Urine specimen was sent for toxicology screen which subsequently showed positive for opiates, marijuana, and methamphetamine. SCOAP time-out was performed per standard protocol. Abdomen was prepped and draped in usual sterile fashion including Ioban drape. Upper midline incision was created with 10 scalpel blade followed by the Bovie for hemostasis. Dissection was carried down through the subcutaneous tissue to the rectus fascia which was divided in the midline with the Bovie. Underlying peritoneum was entered under direct visualization between tonsil clamps and the surgeons finger was then inserted. Remaining portion of the peritoneum and fascia were then opened for the length of the incision using the Bovie over the surgeon's fingers. There was immediate expression of purulent fluid and bilious fluid consistent with perforated viscus. Specimen was sent for culture. Fluid was then suctioned from the abdomen and palpation of the entire abdominal cavity was then performed. Findings are as above. The perforated ulcer was palpable along the 1st portion of the duodenum just beyond the pylorus. Bookwalter retractor was used to provide exposure. The stomach itself appeared otherwise grossly normal. The remaining portion the duodenum was also entirely normal. Gallbladder was slightly inflamed due to the surrounding inflammation from the perforated ulcer but the gallbladder itself was otherwise unremarkable. Meticulous blunt dissection using a Kittner dissect her as well as sharp dissection with Metzenbaum scissors was employed along the guanakito hepatis to mobilize the 1st portion of the duodenum to its junction with the 2nd portion, but a formal Guido maneuver was not indicated. Great care was taken to avoid injury to the common bile duct as well as the other structures of the guanakito hepatis. A full length of the perforation was thereby identified in the surrounding tissue was noted to be viable following the above dissection. Tissue was also soft enough for adequate primary closure with a 2 layer technique. No other abnormalities were appreciated. Therefore the ulcer was closed with an inner running layer of 3 0 Vicryl suture followed by an outer seromuscular interrupted layer of 3 0 silk suture placed in a standard Lembert fashion. At my request the anesthesiology service flushed a total of 220 cc of methylene blue solution into the stomach per the nasogastric tube along with some air. The stomach was noted to distend and fluid traversed across the pylorus into the duodenum. There was no evidence of any leakage of the suture line and the repair appeared to be air tight. Fluid was then suction from the stomach and the nasogastric tube was once again noted to be in good position. The tube was secured to the nose at that time. A viable portion of the omentum that had excellent vascular flow was then placed over the suture line and secured with 3 individual interrupted 3 0 silk suture to the serosa of the stomach and the duodenum to perform an omental patch. Jose-Sanchez drain was brought through a separate stab site in the right lower quadrant and placed into the abdomen where was then left in the subhepatic space adjacent to the repair and the guanakito hepatis. Drain was secured to the skin with 2 0 nylon stitch. Drain was cut to appropriate size and placed to bulb suction. The entire abdomen was then irrigated with at least 5 L of warm saline solution which was suctioned and noted to be clear eventually. There was again significant bilious fluid throughout the right upper quadrant and purulent fluid in the pelvis which was adequately removed. Following irrigation the retractor was removed and the wound was noted to be hemostatic. Fascia was closed with 2 individual running 1 Prolene sutures tied in the midline. Subcutaneous tissue was irrigated and noted to be hemostatic. Subcutaneous tissue was loosely reapproximated with interrupted 3 0 Vicryl suture. Skin was closed with sailaja. Sterile dressing was applied. At the conclusion of the case patient was placed in the right lateral decubitus position while under anesthesia and an epidural pain catheter was inserted per the anesthesiology service for postoperative analgesia. Please see their records for further details. Anesthesia was then reversed and patient extubated in the operating room. He was taken to the ICU directly from the operating room for ongoing resuscitation. Complications: none Condition: stable Disposition: ICU Plan for aftercare: 1. Admit to ICU for ongoing IV fluid resuscitation and antibiotics 2. Monitor for substance withdrawal
[2018-07-31] MEDS: LACTATED RINGERS 1,000 ML 150 ML IV (08:26)
[2018-07-31] MEDS: SODIUM CHLORIDE 0.9% EPIDURAL ×3 (08:27→22:40)
[2018-07-31] MEDS: BUPIVACAINE 0.5% EPIDURAL ×3 (08:27→22:40)
--- NOTE | 2018-07-31 08:46 | SUR.PHASEI ---
Pt brought from OR to PACU, low bp treated by dr gamez with neosynephrine, bp responded to normal level. O2 placed via simple mask at 15/l. Weaned down to 6 /L as I left room. NGT to LIS, bloody drainage from that tube. Epidural infusion started by dr gamez and Pt left under the care of Miranda GUTIÉRREZ and left in stable condition.
[2018-07-31] MEDS: PIPERACILLIN-TAZO 3.375 GM/50 ML FROZ.PIGGY IV ×2 (09:29→18:18)
[2018-07-31] MEDS: PANTOPRAZOLE 80 MG in SODIUM CHLORIDE 0.9% 100 ML 10 ML IV ×2 (09:29→21:13)
--- NOTE | 2018-07-31 09:49 | PC.NURSE ---
pt received from or and recovered by furniture mover's x2 in icu room 102- pt has epidural at 6ml/h and denies any pain at all- weaned from simple mask to room air, alexander patent as well as michael drain from abd cavity with dressing c,d,i- update to paul, ngt to lis wall suction- nsr per monitor- scd's in place. protonix gtt initiated per md order
[2018-07-31 14:44] LABS: Hematocrit 36.9 % (41-53); Hemoglobin 12.3 g/dL (13.5-17.5)
[2018-07-31] MEDS: PHENYLEPHRINE 20,000 MCG in DEXTROSE 5% IN WATER 250 ML 37.5 ML IV (15:03)
--- NOTE | 2018-07-31 16:29 | P.PN_ITS ---
Subjective Date Patient Seen: 07/31/18 Time Patient Seen: 16:21 Interval history: Patient awake but somnolent. Alert however. Easily arousable. Denies significant pain. However, he is unable to fully move his lower extremities due to the epidural anesthesia. Denies chest pain or shortness of breath. No subjective fevers but he did have some chills earlier. Temperature at that time was 98.8? approximately. He has had some issues with hypotension since surgery necessitating Patel-Synephrine drip. He is now on only 25 micrograms/minute. Exam Vital Signs (past 8 hours): - 07/31/18 08:46 07/31/18 09:31 07/31/18 10:08 Temperature 98.1 F Pulse Rate 100 H 96 H 92 H Respiratory Rate 12 14 10 L Blood Pressure 114/69 108/53 L 90/47 L Pulse Oximetry 97 96 07/31/18 10:42 07/31/18 11:08 07/31/18 12:11 Temperature 98.1 F 97.3 F L Pulse Rate 92 H 97 H 82 Respiratory Rate 10 L 16 10 L Blood Pressure 75/38 L 75/38 L 71/31 L Pulse Oximetry 91 98 97 07/31/18 13:14 07/31/18 13:49 07/31/18 13:54 Temperature Pulse Rate 76 68 62 Respiratory Rate 17 10 L 11 L Blood Pressure 64/38 L 56/33 L 72/32 L Pulse Oximetry 96 96 95 07/31/18 14:45 07/31/18 14:57 Temperature 98.5 F Pulse Rate 77 47 L Respiratory Rate 14 10 L Blood Pressure 63/34 L 87/61 L Pulse Oximetry 92 Oxygen Delivery Method Nasal Cannula Oxygen Flow Rate 2 Narrative Exam Narrative: Lying comfortably in bed in no acute distress. is been in to visit intermittently this afternoon since surgery. Heart rate currently in the 90s in sinus on the monitor Urine output has been low the last couple of hours at 7 cc and 25 cc respectively. Urine output has increased slightly with fluid bolus and increase fluid rate as well as increased blood pressure after the institution of the patel drip No wheezes Abdomen is distended but relatively soft. Appropriately tender. Dressing is clean, dry, and intact. There is moderate serous drainage from the Jose- Sanchez drain which is not unanticipated. No bile however. Extremities show no clubbing or cyanosis. He is unable to generally move his extremities below the knees bilaterally. Objective Labs Result Diagrams: 07/31/18 14:35 07/31/18 00:30 Labs: Laboratory Results - last 24 hr 07/31/18 07/31/18 07/31/18 00:30 00:30 01:33 WBC 22.4 H RBC 5.84 Hgb 17.4 Hct 52.1 MCV 89.2 MCH 29.9 MCHC 33.5 RDW 13.9 Plt Count 403 H Neut % (Auto) 88.9 H Lymph % (Auto) 4.3 L [place] % (Auto) 6.4 Eos % (Auto) 0.1 L Baso % (Auto) 0.3 Neut # (Auto) 27644 H Lymph # (Auto) 1000 L [place] # (Auto) 1400 H Eos # (Auto) 0 Baso # (Auto) 100 Sodium 142 Potassium 4.2 Chloride 98 Carbon Dioxide 30 BUN 18 Creatinine 1.70 H Estimated GFR 43.6 L BUN/Creatinine Ratio 10.6 Glucose 125 H Lactate 1.3 Calcium 10.1 Total Bilirubin 1.3 AST 29 ALT 26 Alkaline Phosphatase 94 Total Protein 8.4 H Albumin 4.8 Globulin 3.6 Albumin/Globulin Ratio 1.3 Lipase 58 Urine Color Urine Appearance Urine pH Ur Specific [place] Urine Protein Urine Glucose (UA) Urine Ketones Urine Occult Blood Urine Nitrate Urine Bilirubin Urine Urobilinogen Ur Leukocyte Esterase Urine RBC Urine WBC Calcium Oxalate Crystal Urine Bacteria Ur Culture Indicated? Urine Opiates Screen Ur Oxycodone Screen Urine Methadone Screen Ur Barbiturates Screen U Tricyclic Antidepress Ur Phencyclidine Scrn Ur Amphetamines Screen U Methamphetamines Scrn Ur MDMA Scrn (Ecstasy) U Benzodiazepines Scrn Urine Cocaine Screen U Marijuana (THC) Screen Blood Type Antibody Screen 07/31/18 07/31/18 07/31/18 02:22 03:50 05:10 WBC RBC Hgb Hct MCV MCH MCHC RDW Plt Count Neut % (Auto) Lymph % (Auto) [place] % (Auto) Eos % (Auto) Baso % (Auto) Neut # (Auto) Lymph # (Auto) [place] # (Auto) Eos # (Auto) Baso # (Auto) Sodium Potassium Chloride Carbon Dioxide BUN Creatinine Estimated GFR BUN/Creatinine Ratio Glucose Lactate Calcium Total Bilirubin AST ALT Alkaline Phosphatase Total Protein Albumin Globulin Albumin/Globulin Ratio Lipase Urine Color Yellow Urine Appearance Clear Urine pH 6.5 Ur Specific [place] 1.010 Urine Protein Trace H Urine Glucose (UA) Trace H Urine Ketones Negative Urine Occult Blood Trace-intact Urine Nitrate Negative Urine Bilirubin Negative Urine Urobilinogen 1.0 Ur Leukocyte Esterase Negative Urine RBC 0-1/hpf Urine WBC None seen Calcium Oxalate Crystal Few H Urine Bacteria None seen Ur Culture Indicated? Cult not indicated Urine Opiates Screen Positive H Ur Oxycodone Screen Negative Urine Methadone Screen Negative Ur Barbiturates Screen Negative U Tricyclic Antidepress Negative Ur Phencyclidine Scrn Negative Ur Amphetamines Screen Positive H U Methamphetamines Scrn Positive H Ur MDMA Scrn (Ecstasy) Negative U Benzodiazepines Scrn Negative Urine Cocaine Screen Negative U Marijuana (THC) Screen Positive H Blood Type AB Positive Antibody Screen Negative 07/31/18 07/31/18 10:00 14:35 WBC RBC Hgb 12.3 L Hct 36.9 L MCV MCH MCHC RDW Plt Count Neut % (Auto) Lymph % (Auto) [place] % (Auto) Eos % (Auto) Baso % (Auto) Neut # (Auto) Lymph # (Auto) [place] # (Auto) Eos # (Auto) Baso # (Auto) Sodium Potassium Chloride Carbon Dioxide BUN Creatinine Estimated GFR BUN/Creatinine Ratio Glucose Lactate Calcium Total Bilirubin AST ALT Alkaline Phosphatase Total Protein Albumin Globulin Albumin/Globulin Ratio Lipase Urine Color Urine Appearance Urine pH Ur Specific [place] Urine Protein Urine Glucose (UA) Urine Ketones Urine Occult Blood Urine Nitrate Urine Bilirubin Urine Urobilinogen Ur Leukocyte Esterase Urine RBC Urine WBC Calcium Oxalate Crystal Urine Bacteria Ur Culture Indicated? Urine Opiates Screen Cancelled Ur Oxycodone Screen Cancelled Urine Methadone Screen Cancelled Ur Barbiturates Screen Cancelled U Tricyclic Antidepress Cancelled Ur Phencyclidine Scrn Cancelled Ur Amphetamines Screen Cancelled U Methamphetamines Scrn Cancelled Ur MDMA Scrn (Ecstasy) Cancelled U Benzodiazepines Scrn Cancelled Urine Cocaine Screen Cancelled U Marijuana (THC) Screen Cancelled Blood Type Antibody Screen Toxicology screen is as above. Postoperative hemoglobin 12.3. Assessment & Plan Assessment & Plan narrative: 47-year-old male status post laparotomy with repair of perforated duodenal ulcer with evidence of sepsis and hypotension. He has responded nicely to small dose of Patel-Synephrine drip. We will wean as tolerated to keep mean arterial pressure greater than 58. Continue aggressive fluid resuscitation as he was significantly hypovolemic at admission. Follow urine output closely. Continue antibiotics with the addition of Diflucan. I have emphasized with the patient and his strict NPO status and he may swab his mouth only. Continue the nasogastric tube to low intermittent wall suction, and the tube was currently draining bilious fluid. Epidural management per [facility]. Plan to place PICC line tomorrow in institute TPN for nutritional support since he will be prolonged NPO status. Orders have already been entered for such and discussed with the pharmacist today. Given his recent methamphetamine use we will have to monitor closely for any type of cardiac issue including a rhythm is. I am concerned about the use of Patel-Synephrine in conjunction with recent methamphetamine use, but we have no other really good options, and fortunately he is only requiring a small amount of Patel-Synephrine currently. We will continue his current care. Orders written. Case reviewed with attending nurse this evening.
[2018-07-31] MEDS: FLUCONAZOLE 200 MG/100 ML PIGGYBACK 100 MG IV (16:39)
[2018-07-31] MEDS: PHENYLEPHRINE 20,000 MCG in DEXTROSE 5% IN WATER 250 ML 30 ML IV (17:13)
[2018-07-31] MEDS: LACTATED RINGERS 1,000 ML 250 ML IV (19:36)
[2018-07-31] MEDS: ENOXAPARIN 40 MG/0.4 ML SYRINGE SUBCUT (19:38)
[2018-08-01] VITALS (10 sets, daily range): BP systolic 115–130; BP diastolic 55–86; PULSE 95–115; RESP 13–20; TEMP 36.7–38.9; O2SAT 91–98; BMI 31.0
[2018-08-01] MEDS: PIPERACILLIN-TAZO 3.375 GM/50 ML FROZ.PIGGY IV ×3 (01:03→17:08)
--- NOTE | 2018-08-01 01:40 | PC.NURSE ---
Security Consultant Note: 0000: Sleeping, arousable. Oriented X3 when awake. Remains on NeoSynepherine gtt at 35mcg/minute. Remains on Protonix gtt at 10cc/hr. Epidural catheter intact and secure, with Bupivicaine infusing at 6cc/hr. IVs in place in lt AC, lt forearm, and rt hand. Mendiola catheter patent, and urine is clear medium lisandro. Mendiola cath care given. SCDs on. NGT to low intermittent suction, patent, with clear green secretions. Abdominal dressing is cdi, OLIMPIA drain intact and compressed: drainage is serous. Pt denies pain at this time.
[2018-08-01] MEDS: LACTATED RINGERS 1,000 ML 150 ML IV (02:17)
[2018-08-01] MEDS: PHENYLEPHRINE 20,000 MCG in DEXTROSE 5% IN WATER 250 ML 18.75 ML IV (04:08)
[2018-08-01] MEDS: metroNIDAZOLE 500 MG/100 ML PIGGYBACK 100 MG IV ×3 (05:02→20:36)
[2018-08-01 05:14] LABS: Add Manual Diff / Slide Review NO; Basophils Absolute Auto 0 /uL (0-100); Basophils Percent Auto 0.2 % (0-2); Eosinophils Absolute Auto 0 /uL (0-450); Eosinophils Percent Auto 0.1 % (2-4); Hematocrit 36.5 % (41-53); Hemoglobin 12.1 g/dL (13.5-17.5); Lymphocytes Absolute Auto 1700 /uL (1100-4500); Lymphocytes Percent Auto 11.9 % (25-40); Mean Corpuscular HGB Conc 33.3 % (30-36); Mean Corpuscular Hemoglobin 30.2 PG (26-34); Mean Corpuscular Volume 90.6 fL (80-100); Monocytes Absolute Auto 1100 /uL (0-900); Monocytes Percent Auto 8.1 % (3-14); Neutrophils Absolute Auto 11300 /uL (1500-7000); Neutrophils Percent Auto 79.7 % (50-75); Platelet Count 190 X10^3/uL (150-400); Red Blood Cell Count 4.03 X10^6/uL (4.5-5.9); Red Cell Distribution Width 14.2 % (11.6-14.8); White Blood Cell Count 14.1 X10^3/uL (4.5-11.0)
[2018-08-01 05:19] LABS: Lactate (Lactic Acid) 0.8 mmol/L (0.7-2.1)
[2018-08-01 05:21] LABS: Alanine Aminotransferase 32 IU/L (21-72); Albumin 2.5 g/dL (3.5-5.0); Albumin Globulin Ratio 1.1 (1.0-2.8); Alkaline Phosphatase 39 U/L (38-126); Aspartate Aminotransferase 21 IU/L (17-59); BUN Creatinine Ratio 16.4 (6-22); Blood Urea Nitrogen 23 mg/dL (9-20); Calcium 7.5 mg/dL (8.4-10.2); Carbon Dioxide 25 mmol/L (22-32); Chloride 107 mmol/L (98-107); Estimated Glomerular Filt Rate 54.6 mL/min (>60); Globulin 2.3 g/dL (1.7-4.1); Glucose 86 mg/dL (70-100); HEMOLYSIS < 15 (0-50); Potassium 3.8 mmol/L (3.4-5.1); Sodium 138 mmol/L (137-145); Total Protein 4.8 g/dL (6.3-8.2)
[2018-08-01] MEDS: BUPIVACAINE 0.5% EPIDURAL ×3 (06:07→20:53)
[2018-08-01] MEDS: SODIUM CHLORIDE 0.9% EPIDURAL ×3 (06:07→20:53)
--- NOTE | 2018-08-01 08:59 | P.PN_ITS ---
Subjective Date Patient Seen: 08/01/18 Time Patient Seen: 08:53 Interval history: Patient alert oriented this morning. Denies significant pain. Able to move his lower extremities now without difficulty. Denies chest pain or shortness of breath but saturations are dipping into the 88-89% range without oxygen. No nausea or vomiting. He continually asks for something to drink or eat, but he is aware that he is strict NPO for now. Exam Vital Signs (past 8 hours): - 08/01/18 04:00 08/01/18 07:57 Temperature 100.2 F H 99.0 F Pulse Rate 106 H 101 H Respiratory Rate 14 13 Blood Pressure 117/76 117/70 Pulse Oximetry 91 94 Oxygen Delivery Method Simple Mask Oxygen Flow Rate 2 Narrative Exam Narrative: Patient seen and examined with the attending nurse today at the bedside. He is lying comfortably in bed in no acute distress. Alert oriented x3. Maximal temperature 100.2? earlier this morning but now afebrile. Tachycardia persists at 100-105 beats per minute. Sinus rhythm on the monitor. Occasionally he will have normal rhythm in the 90s. Urine output remains adequate but still somewhat marginal at 350 cc overnight. Urine is clear. Jose-Sanchez drain has also diminished significantly with serous output only. Approximately 45 cc output overnight. No bile in the drain this morning. Dressing is clean, dry, and intact Chest shows diminished breath sounds throughout but no crackles. Abdomen is distended and appropriately tender. No guarding or rebound. Extremities show no clubbing or cyanosis Objective Labs Result Diagrams: 08/01/18 04:58 08/01/18 04:58 Labs: Laboratory Results - last 24 hr 07/31/18 07/31/18 07/31/18 10:00 14:35 17:30 WBC RBC Hgb 12.3 L Hct 36.9 L MCV MCH MCHC RDW Plt Count Neut % (Auto) Lymph % (Auto) [place] % (Auto) Eos % (Auto) Baso % (Auto) Neut # (Auto) Lymph # (Auto) [place] # (Auto) Eos # (Auto) Baso # (Auto) Sodium Potassium Chloride Carbon Dioxide BUN Creatinine Estimated GFR BUN/Creatinine Ratio Glucose Lactate Calcium Total Bilirubin AST ALT Alkaline Phosphatase Total Protein Albumin Globulin Albumin/Globulin Ratio Nasal Screen MRSA (PCR) Negative for mrsa Urine Opiates Screen Cancelled Ur Oxycodone Screen Cancelled Urine Methadone Screen Cancelled Ur Barbiturates Screen Cancelled U Tricyclic Antidepress Cancelled Ur Phencyclidine Scrn Cancelled Ur Amphetamines Screen Cancelled U Methamphetamines Scrn Cancelled Ur MDMA Scrn (Ecstasy) Cancelled U Benzodiazepines Scrn Cancelled Urine Cocaine Screen Cancelled U Marijuana (THC) Screen Cancelled 08/01/18 08/01/18 08/01/18 04:58 04:58 04:58 WBC 14.1 H RBC 4.03 L Hgb 12.1 L Hct 36.5 L MCV 90.6 MCH 30.2 MCHC 33.3 RDW 14.2 Plt Count 190 Neut % (Auto) 79.7 H Lymph % (Auto) 11.9 L [place] % (Auto) 8.1 Eos % (Auto) 0.1 L Baso % (Auto) 0.2 Neut # (Auto) 10822 H Lymph # (Auto) 1700 [place] # (Auto) 1100 H Eos # (Auto) 0 Baso # (Auto) 0 Sodium 138 Potassium 3.8 Chloride 107 Carbon Dioxide 25 BUN 23 H Creatinine 1.40 H Estimated GFR 54.6 L BUN/Creatinine Ratio 16.4 Glucose 86 Lactate 0.8 Calcium 7.5 L Total Bilirubin 1.0 AST 21 ALT 32 Alkaline Phosphatase 39 D Total Protein 4.8 L Albumin 2.5 L Globulin 2.3 Albumin/Globulin Ratio 1.1 Nasal Screen MRSA (PCR) Urine Opiates Screen Ur Oxycodone Screen Urine Methadone Screen Ur Barbiturates Screen U Tricyclic Antidepress Ur Phencyclidine Scrn Ur Amphetamines Screen U Methamphetamines Scrn Ur MDMA Scrn (Ecstasy) U Benzodiazepines Scrn Urine Cocaine Screen U Marijuana (THC) Screen Lactate is normal. White blood cell count has decreased significantly. Hemoglobin stable. Creatinine normalizing but still elevated consistent with volume depletion. He is actually now 12 L positive since surgery. Electrolytes stable. Blood cultures remain no growth. Peritoneal fluid cultures are pending. Assessment & Plan Assessment & Plan narrative: 47-year-old male postoperative day 1 from laparotomy with primary repair of perforated duodenal ulcer. He had significant peritonitis. Sepsis is improving. He is now off of Patel-Synephrine. I suspect he will continue to require some significant fluid resuscitation. Continue nasogastric tube which is producing bilious fluid only as anticipated at this point. I explained to him that the tube will remain in place at least 4 or 5 more days. I would plan upper GI study with Gastrografin through the nasogastric tube on approximately [id number]. If there is no evidence of leakage or obstruction in the nasogastric tube could be discontinued at that time. In the interim the tube will remain to low intermittent wall suction and his strict NPO status will remain in place. Consult Physical therap y today for mobilization. He may be out of bed to chair with assistance. Epidural catheter is working nicely so we will continue this for now along with the Mendiola catheter. He is on appropriate DVT prophylaxis. IV antibiotics consist of Zosyn and Flagyl along with Diflucan at this point. Await cultures. Repeat laboratory studies tomorrow. PICC line to be placed today and TPN started tonight. Total fluids to be at about 100 cc thereafter if his urine output remains adequate. Drain will remain in place until he is tolerating a regular diet. Protonix drip to in this morning then institute b.i.d. intravenous dosing thereafter. He will require long-term proton pump inhibitor. All the above discussed with the patient in detail. All questions answered to his satisfaction, and he voiced understanding. Orders written.
[2018-08-01] MEDS: LACTATED RINGERS 1,000 ML 100 ML IV (11:48)
[2018-08-01] MEDS: PANTOPRAZOLE 40 MG VIAL IV ×2 (11:49→20:36)
--- NOTE | 2018-08-01 12:24 | PM.PN.1 ---
Exam Vital Signs (past 8 hours): - 08/01/18 07:57 08/01/18 09:51 Temperature 99.0 F Pulse Rate 101 H 103 H Respiratory Rate 13 14 Blood Pressure 117/70 122/73 Pulse Oximetry 94 96 Oxygen Delivery Method Nasal Cannula Oxygen Flow Rate 2 Narrative Exam Narrative: Post op day 1, epidural cath infusing well, good pain control, site clean. Will continue at 6 ml/hr. Objective Labs Result Diagrams: 08/01/18 04:58 08/01/18 04:58 Labs: Laboratory Results - last 24 hr 07/31/18 07/31/18 08/01/18 14:35 17:30 04:58 WBC 14.1 H RBC 4.03 L Hgb 12.3 L 12.1 L Hct 36.9 L 36.5 L MCV 90.6 MCH 30.2 MCHC 33.3 RDW 14.2 Plt Count 190 Neut % (Auto) 79.7 H Lymph % (Auto) 11.9 L [place] % (Auto) 8.1 Eos % (Auto) 0.1 L Baso % (Auto) 0.2 Neut # (Auto) 84022 H Lymph # (Auto) 1700 [place] # (Auto) 1100 H Eos # (Auto) 0 Baso # (Auto) 0 Sodium Potassium Chloride Carbon Dioxide BUN Creatinine Estimated GFR BUN/Creatinine Ratio Glucose Lactate Calcium Total Bilirubin AST ALT Alkaline Phosphatase Total Protein Albumin Globulin Albumin/Globulin Ratio Nasal Screen MRSA (PCR) Negative for mrsa 08/01/18 08/01/18 08/01/18 04:58 04:58 07:44 WBC RBC Hgb Hct MCV MCH MCHC RDW Plt Count Neut % (Auto) Lymph % (Auto) [place] % (Auto) Eos % (Auto) Baso % (Auto) Neut # (Auto) Lymph # (Auto) [place] # (Auto) Eos # (Auto) Baso # (Auto) Sodium 138 Potassium 3.8 Chloride 107 Carbon Dioxide 25 BUN 23 H Creatinine 1.40 H Estimated GFR 54.6 L BUN/Creatinine Ratio 16.4 Glucose 86 Lactate 0.8 Calcium 7.5 L Total Bilirubin 1.0 AST 21 ALT 32 Alkaline Phosphatase 39 D Total Protein 4.8 L Albumin 2.5 L Globulin 2.3 Albumin/Globulin Ratio 1.1 Nasal Screen MRSA (PCR) Negative for mrsa
--- NOTE | 2018-08-01 13:42 | PC.NURSE ---
PT IS DOING WELL TODAY POD #1- OLIMPIA WITH LESS DRAINAGE COMPARED TO YESTERDAY- SERO-SANG., NGT WITH CLEAR-GREENISH DRAINAGE, ABD DRESSING IS CDI, NO BOWEL TONES HEARD, SCD'S IN PLACE AND GOOD UOP PER LEONARD CATH- EPIDURAL EFFECTIVE AT 6ML/H BUPIVICAINE- DRESSING REINFORCED- O2 WEANED TO 2L NC AND REMAINS NSR. HE WAS ABLE OT DANGLE AT BEDSIDE THEN EVEN STOOD TO TTAKE FEW SIDE STEPS USING FWW
[2018-08-01] MEDS: FLUCONAZOLE 200 MG/100 ML PIGGYBACK 100 MG IV (14:58)
--- NOTE | 2018-08-01 15:41 | CM.DPC ---
Addendum entered by Alisia Li LPN 08/02/18 07:57: Conferred this morning with CM/[facility] Yeni. She and the clinical social work therapist team will take over the this case going forward as of this morning. Original Note: Discharge Planning/Care Management DCP: assessment: case received, EMR reviewed. Documentation reveals that pt is a 47 year old male who admitted to care of General Surgery: 07/[address] Carlson took pt to surgery on 07/31 with post op dx of perforated duondenal ulcer with gross peritonitis. PCP: no one listed on [facility] face sheet. Payer: [facility]/Medicaid. It is noted that pt is homeless. Per documentation he and his Priscila sleep in a vehicle. Urine tox screen: + methamphetamine, amphetamines and opiates POC includes monitoring pt for substance withdrawal. Needed: CM [facility] [facility] consult to help address these social issues which will very much impact this d/c planning process, especially as he recovers from this major surgery. Plan to discuss this in Team Rounds tomorrow. Plan also to check in with pt tomorrow for continuation of the assessment process. Today he is post op day one and with NGT in place. Pt may need to recover in a snf setting but at his point is early in that process and his social issues may make this challenging. CM Discharge Assessment Start: 08/01/18 15:38 Freq: Status: Active Protocol: Document 08/01/18 15:39 ITV (Rec: 08/01/18 15:41 ITV [id number]) Discharge Planning Assessment Advance Directives? No History Provided By Medical Record Prior Living Arrangements Homeless Comment per documentation, pt and his sleep in their vehicle. Household Members significant other Review Status In Process Next Review Type Continued Stay Review
--- NOTE | 2018-08-01 16:02 | PT.IIE ---
Current Diagnoses Perforation of intestine (nontraumatic) (07/31/18) Surgery Performed Operation Date: 07/31/18 04:20 <No data on this case meets the specified criteria> Surgical History (Last Reviewed 07/31/18 @ 04:14 by Marquez Carlson MD) History of arthroscopic knee surgery (Acute) Medical History (Last Reviewed 07/31/18 @ 04:14 by Marquez Carlson MD) Kidney stones (Acute) Tobacco use (Acute) Physical Therapy Inpatient Evaluation/Re-Eval M1 PT/OT-IP Prior Functional Status Start: 08/01/18 10:47 Freq: NEEDED Status: Active Protocol: Document 08/01/18 14:40 HH (Rec: 08/01/18 16:01 [email or web address]) Medical Review Prior Functional Status Medical History Reviewed Yes Diet/Fluid Consistency NPO Communication No deficits noted. Able to make needs known Mobility and Gait Pt was an independent ambulator at home and community without using AD. Pt also drives Activities of Daily Living and IADL's Pt was independent for ADLs and IADLs without using AD,. Social History Household Members significant other Living Arrangements Homeless Employment Status Unknown Additional Social History Comment Pt and his are homeless and have been living in their car. Pt was garbled with his speech today due to NG tube placement. He stated Im looking for/working for [email or web address] job. Pt's stated that they have been doing their ADLs at the [facility]. M2 PT-IP Current Condition Start: 08/01/18 10:47 Freq: NEEDED Status: Active Protocol: Document 08/01/18 14:40 HH (Rec: 08/01/18 16:01 [email or web address]) Physical Therapy Current Condition Current Condition Evaluation Date 08/01/18 Treatment Diagnosis s/p exploratory laparotomy, epidural, impaired gait and activity tolerance Onset Date 07/31/18 Precautions Abdominal Surgery Precautions Log Roll Lifting Restrictions Gait Belt above Incisional Area Weight Bearing Status Weight Bearing Status Weight Bear as Tolerated M3 PT-IP Subjective Start: 08/01/18 10:47 Freq: NEEDED Status: Active Protocol: Document 08/01/18 14:40 HH (Rec: 08/01/18 16:01 [email or web address]) Subjective Physical Therapy Visit Type Type Initial Evaluation Visit Start Time 14:40 Visit Stop Time 15:10 Total Visit Minutes 30 Notes Pt's at bedside. Per RN, pt has NG tube and NC 2L as well. stood up at EOB this morning but did not amb. Number of TRAFFIC SURVEY TECHNICIAN Visits 0 Physical Therapy Visit Comments Patient Comments Im ok and i feel pretty weak. Patient Goals To be able to amb independently again Pt's stated If we could find a home placement. Therapy Pain Assessment Pain When Pain Assessed During Mobility Pain Present Pain Present Pain Reported Location Right Lower Abdomen Intensity 4 Scale Used Numeric (1 - 10) Description Acute Pain Behaviors Facial Grimacing Pain Management Techniques Modification of Treatment Re-positioning Timing of Activity with Medications M4 PT-IP Mobility and Gait Start: 08/01/18 10:47 Freq: NEEDED Status: Active Protocol: Document 08/01/18 14:40 (Rec: 08/01/18 16:01 [email or web address]) PT-Bed Mobility Assessment Supine to Sit Supine to Sit Minimal Assistance 1 Person Assistance Head of Bed Elevated Bedrails Sit to Supine Sit to Supine Minimal Assistance 1 Person Assistance Head of Bed Elevated Bedrails Scooting Scooting to Edge of Bed Minimal Assistance Scooting Up and Down in Bed Minimal Assistance PT-Transfer Assessment Sit to and From Stand Sit to and from Stand Contact Guard Assistance Use of Upper Extremities Equipment Transfer Assistive Device Gait Belt Front Wheeled Walker Orthotic/Prosthetic Devices or Brace: No Transfers Transfer Destination Bed Transfer Technique Stand Step Pivot Transfer Ability Level of Assist Contact Guard Assistance Use of Upper Extremities Comments Mobility Comments BP pre session 130/64 BP post session 118/55 Pt was in bed upon assessment. Pt got up to EOB with min A with R UE. Pt tends to hold his breath upon exertion and needs cues for breathing. Pt stood up with CGA FWW. Gait Assessment Gait Gait Assistance Required: Contact Guard Assist Distance (Feet) 30 Able to Maintain Weight Bearing Status Yes During Gait Assistive Devices Assistive Device Gait Belt Front Wheeled Walker Orthotic/Prosthetic Devices or Brace: No Gait Deviations General Gait Pattern Decreased Stride Length Decreased Feet Clearance Factors Limiting Gait Function Factors Limiting Gait Function Decreased Activity Tolerance Decreased Strength Pain Respiratory Distress Comments Gait Comments Pt has tele and NG placement. Pt amb from EOB to bathroom door x 8 times. Pt's O2 Sat fluctuated between 85-97% during mobility and tends to hold his breath upon exertion. Pt was able to recover to 90s within 5-10 seconds. Pt requested back to bedrest after approx 30 feet FWW. Pt appeared slight SOB and fatigue. denies increased pain /discomfort. Stair Climbing Assessment Comments Stair Climbing Comments did not attempt PT-Balance Assessment Sitting Balance and Reactions Static Sitting Balance Ability Normal Dynamic Sitting Balance Ability Normal Standing Balance and Reactions Static Standing Balance Ability Normal Dynamic Standing Balance Ability Good Device Used FWW M5 PT-IP Objective Assessments Start: 08/01/18 10:47 Freq: NEEDED Status: Active Protocol: Document 08/01/18 14:40 HH (Rec: 08/01/18 16:01 [email or web address]) Orientation Orientation/Cognition Level of Alertness Alert Orientation Name Age Birthday Month Date Year Day of Week Place Situation Language Function Ability No Deficits Noted Safety Awareness Understands Safety Issues Memory Description No Deficits Noted Gross Range of Motion Upper Extremity ROM Assessment Within Functional Limits Lower Extremity ROM Assessment Within Functional Limits Strength Upper Extremity Strength Assessment Within Functional Limits Lower Extremity Strength Assessment Within Functional Limits Coordination Assessment Gross Coordination Gross Coordination WNL Sensation Assessment Sensation Gross Sensation WNL Muscle Tone Muscle Tone WNL Yes M6 PT-IP Treatment Start: 08/01/18 10:47 Freq: NEEDED Status: Active Protocol: Document 08/01/18 14:40 HH (Rec: 08/01/18 16:01 [email or web address]) Physical Therapy Treatment Exercises Exercises Ankle Pumps Quad Sets Education Education Provided Precautions Weight Bearing Status Post-Op Packet Safety M7 PT-IP Assessment and Plan Start: 08/01/18 10:47 Freq: NEEDED Status: Active Protocol: Document 08/01/18 14:40 HH (Rec: 08/01/18 16:01 [email or web address]) PT Summary Assessment and Plan Potential Rehabilitation Potential Good Status of Condition at Evaluation Evolving Summary Impairments Pain Strength Bed Mobility Transfers Gait Activity Tolerance Assessment Summary Pt is a 47 yo s/p exploratomy lapartomy due to new onset of sharp abdominal pain since couple days ago. Pt's at bedside. Up assessment, Pt has NG tube and NC. Pt required min A for bed mobility but CGA for transfers and gait training. Pt amb approx 30 feet with FWW CGA with a steady gait and no signs of LOB/ acute distress. Pt is far from baseline at this point and not safe to be d/c back to community since they are currently homeless. Pt might need SNF short term rehab to improve mobility if he did not meet rehab goals during this hospital stay. Will cont communicate with interdisplinary team to update his medical status. Goals Bed Mobility Goal Standby Assistance Transfer Goal Standby Assistance Front Wheeled Walker Gait Goal Standby Assistance Front Wheel Walker Gait Distance 300 Days to Meet Goals 10 Frequency of Treatment Frequency Of Treatment Once a Day Treatment Plan Physical Therapy Treatment Plan Bed Mobility Training Transfer Training Gait Training Therapeutic Exercise Post Op Education Discharge Planning Other Recommendations and Next Treatment bed mob/ transfer/ gait Focus training as kike with/without AD cont monitor VSS Recommendations To Nursing Amount of Assist Needed 1 Person Assist Discharge Recommendations PT Discharge Recommendations SNF Rehab Other Discharge Recommendations Pt is homeless and require further assessment for d/c planning Equipment Needed for Home Before will cont monitor pt's Discharge mobility status. FWW possibly
--- NOTE | 2018-08-01 16:55 | DI.RAD.S_ITS ---
PROCEDURE: XR CHEST FOR PICC 1V INDICATIONS: PICC placement COMPARISON: None. FINDINGS: PICC was placed by the intravenous therapy team from the right side. Fluoroscopic spot film demonstrates tip of PICC in the cavoatrial junction. IMPRESSION: Tip of PICC lies within the cavoatrial junction. Dictated by: Amalia Quijano M.D. on 08/01/2018 at 17:04 Approved by: Amlaia Quijano M.D. on 08/01/2018 at 17:04
--- NOTE | 2018-08-01 18:02 | PC.NURSE ---
Addendum entered by Karolina Delong R.N. 08/01/18 22:54: 2030 Pt noted to be febrile (102.1) and tachycardic to 120. Dr. Castorena notified, orders received for blood cultures x2. Pt given tylenol TX with temp down to 100.1, HR now low 100s. Original Note: Evening Shift Note: Pt received laying in bed, mostly sleeping but easily awoken, oriented x3. Pt denies pain, epidural in place, insertion site intact, pump functioning. Pt reports numbness from nipple line to hips, block on R slightly more extensive than L. Pt on 2 L NC, SPO2 mostly 90-96%, lungs slightly coarse, especially in R lung. Pt with occasional self-limiting apnea, occasional desaturation to 82%. Pt quickly recovers. HR SR-ST, high 90s to low 100s. Occasional tachycardia to 110s-120 with sleep apnea. Pt with BP 110s/60s. Pt denies nausea, NG tube in place, bilious output, hypoactive BTs in all quadrants. PICC line placed at bedside, will start TPN today. Will continue to monitor, notify MD with changes.
[2018-08-01] MEDS: AA 5 %/CALCIUM/LYTES/DEXT 20 % 1,000 ML with MULTIVITAMIN 10 ML, TRACE ELEMENTS 1 ML 42.125 ML IV (18:29)
[2018-08-01] MEDS: ENOXAPARIN 40 MG/0.4 ML SYRINGE SUBCUT (20:35)
[2018-08-01] MEDS: ACETAMINOPHEN 650 MG SUPP PR (20:36)
[2018-08-01] MEDS: LACTATED RINGERS 1,000 ML 58 ML IV (22:51)
[2018-08-02] VITALS (11 sets, daily range): BP systolic 134–163; BP diastolic 71–106; PULSE 87–104; RESP 14–24; TEMP 37–38.4; O2SAT 91–98
[2018-08-02] MEDS: PIPERACILLIN-TAZO 3.375 GM/50 ML FROZ.PIGGY IV ×3 (01:09→16:53)
[2018-08-02] MEDS: SODIUM CHLORIDE 0.9% EPIDURAL ×3 (04:57→19:39)
[2018-08-02] MEDS: BUPIVACAINE 0.5% EPIDURAL ×3 (04:57→19:39)
[2018-08-02 04:58] LABS: Add Manual Diff / Slide Review NO; Basophils Absolute Auto 100 /uL (0-100); Basophils Percent Auto 0.5 % (0-2); Eosinophils Absolute Auto 0 /uL (0-450); Eosinophils Percent Auto 0.4 % (2-4); Hematocrit 34.4 % (41-53); Hemoglobin 11.4 g/dL (13.5-17.5); Lymphocytes Absolute Auto 1400 /uL (1100-4500); Lymphocytes Percent Auto 14.3 % (25-40); Mean Corpuscular HGB Conc 33.1 % (30-36); Mean Corpuscular Hemoglobin 29.9 PG (26-34); Mean Corpuscular Volume 90.5 fL (80-100); Monocytes Absolute Auto 700 /uL (0-900); Monocytes Percent Auto 7.6 % (3-14); Neutrophils Absolute Auto 7500 /uL (1500-7000); Neutrophils Percent Auto 77.2 % (50-75); Platelet Count 158 X10^3/uL (150-400); Red Cell Distribution Width 13.9 % (11.6-14.8); White Blood Cell Count 9.7 X10^3/uL (4.5-11.0)
[2018-08-02] MEDS: metroNIDAZOLE 500 MG/100 ML PIGGYBACK 100 MG IV ×3 (04:58→20:56)
[2018-08-02 05:03] LABS: BUN Creatinine Ratio 13.6 (6-22); Blood Urea Nitrogen 15 mg/dL (9-20); Calcium 7.9 mg/dL (8.4-10.2); Carbon Dioxide 26 mmol/L (22-32); Chloride 108 mmol/L (98-107); Estimated Glomerular Filt Rate > 60.0 mL/min (>60); Glucose 106 mg/dL (70-100); HEMOLYSIS < 15 (0-50); Phosphorous 2.5 mg/dL (2.5-4.5); Potassium 3.5 mmol/L (3.4-5.1); Sodium 138 mmol/L (137-145)
--- NOTE | 2018-08-02 06:34 | PC.NURSE ---
Patient is drowsy and fatigued, rouses for care and assessments, oriented x3 and appropriate. Face moist and flushed, afebrile, SR/ST, on 2L NC, SpO2 >92% with HOB 30 degrees or more. 275ml thick bile drainage from NGT, 5ml serous fluid from OLIMPIA, 500ml UOP via Mendiola. Bowel sounds absent, denies nausea. Epidural with bupivicaine infusing at 6ml/hr, denies pain. TPN and IVFs per order, CBGs 100 and 106.
[2018-08-02] MEDS: PANTOPRAZOLE 40 MG VIAL IV ×2 (09:25→20:57)
--- NOTE | 2018-08-02 12:13 | PT.IPTN ---
Current Diagnoses Perforation of intestine (nontraumatic) (07/31/18) Surgery Performed Operation Date: 07/31/18 04:20 <No data on this case meets the specified criteria> Physical Therapy Treatment Note M2 PT-IP Current Condition Start: 08/01/18 10:47 Freq: NEEDED Status: Active Protocol: Document 08/01/18 14:40 HH (Rec: 08/01/18 16:01 HH [id number]) Physical Therapy Current Condition Current Condition Evaluation Date 08/01/18 Treatment Diagnosis s/p exploratory laparotomy, epidural, impaired gait and activity tolerance Onset Date 07/31/18 Precautions Abdominal Surgery Precautions Log Roll Lifting Restrictions Gait Belt above Incisional Area Weight Bearing Status Weight Bearing Status Weight Bear as Tolerated M3 PT-IP Subjective Start: 08/01/18 10:47 Freq: NEEDED Status: Active Protocol: Document 08/02/18 09:30 CLB (Rec: 08/02/18 12:13 CLB [email or web address]) Subjective Physical Therapy Visit Type Type Treatment Note Visit Start Time 09:30 Visit Stop Time 09:45 Total Visit Minutes 15 Number of MANAGER COLLECTION Visits 1 Physical Therapy Visit Comments Patient Comments Pt willing to get up and ambulate. Therapy Pain Assessment Pain When Pain Assessed During Mobility Pain Present Pain Present Pain Reported M4 PT-IP Mobility and Gait Start: 08/01/18 10:47 Freq: NEEDED Status: Active Protocol: Document 08/02/18 09:30 CLB (Rec: 08/02/18 12:13 CLB [email or web address]) PT-Bed Mobility Assessment Supine to Sit Supine to Sit Minimal Assistance 1 Person Assistance Head of Bed Elevated Scooting Scooting to Edge of Bed Contact Guard Assistance PT-Transfer Assessment Sit to and From Stand Sit to and from Stand Contact Guard Assistance Use of Upper Extremities Equipment Transfer Assistive Device Front Wheeled Walker Orthotic/Prosthetic Devices or Brace: No Transfers Transfer Destination Bed Chair Transfer Technique Stand Step Pivot Transfer Ability Level of Assist Contact Guard Assistance Use of Upper Extremities Comments Mobility Comments Pt required Min A to full sit. Gait Assessment Gait Gait Assistance Required: Standby Assistance 2 Person Assist Distance (Feet) 60 Able to Maintain Weight Bearing Status Yes During Gait Assistive Devices Assistive Device Front Wheeled Walker Orthotic/Prosthetic Devices or Brace: No Gait Deviations General Gait Pattern Decreased Stride Length Decreased Feet Clearance Factors Limiting Gait Function Factors Limiting Gait Function Decreased Activity Tolerance Decreased Strength Pain Respiratory Distress Comments Gait Comments Pt ambulated in room around bed x3 ~60ft with SBA of 1 person and another person assisting with lines. Pt O2 on RA ranged between 95%-96% HR 100-102 bpm. Stair Climbing Assessment Comments Stair Climbing Comments did not attempt M5 PT-IP Objective Assessments Start: 08/01/18 10:47 Freq: NEEDED Status: Active Protocol: Document 08/01/18 14:40 HH (Rec: 08/01/18 16:01 [email or web address]) Orientation Orientation/Cognition Level of Alertness Alert Orientation Name Age Birthday Month Date Year Day of Week Place Situation Language Function Ability No Deficits Noted Safety Awareness Understands Safety Issues Memory Description No Deficits Noted Gross Range of Motion Upper Extremity ROM Assessment Within Functional Limits Lower Extremity ROM Assessment Within Functional Limits Strength Upper Extremity Strength Assessment Within Functional Limits Lower Extremity Strength Assessment Within Functional Limits Coordination Assessment Gross Coordination Gross Coordination WNL Sensation Assessment Sensation Gross Sensation WNL Muscle Tone Muscle Tone WNL Yes M6 PT-IP Treatment Start: 08/01/18 10:47 Freq: NEEDED Status: Active Protocol: Document 08/01/18 14:40 HH (Rec: 08/01/18 16:01 [email or web address]) Physical Therapy Treatment Exercises Exercises Ankle Pumps Quad Sets Education Education Provided Precautions Weight Bearing Status Post-Op Packet Safety M7 PT-IP Assessment and Plan Start: 08/01/18 10:47 Freq: NEEDED Status: Active Protocol: Document 08/02/18 09:30 CLB (Rec: 08/02/18 12:13 CLB [email or web address]) PT Summary Assessment and Plan Potential Rehabilitation Potential Good Status of Condition at Evaluation Evolving Summary Impairments Pain Strength Bed Mobility Transfers Gait Activity Tolerance Assessment Summary Pt has tele and NG placement. He required Min A OOB, CGA for sit-stand and SBA for ambulation with second assist for lines. Pt ambulated ~60ft with increased activity tolerance. Pt stated pain was OK during ambulation but could not state number. Goals Bed Mobility Goal Standby Assistance Transfer Goal Standby Assistance Front Wheeled Walker Gait Goal Standby Assistance Front Wheel Walker Gait Distance 300 Days to Meet Goals 10 Frequency of Treatment Frequency Of Treatment Once a Day Treatment Plan Physical Therapy Treatment Plan Bed Mobility Training Transfer Training Gait Training Therapeutic Exercise Post Op Education Discharge Planning Other Recommendations and Next Treatment bed mob/ transfer/ gait Focus training as kike with/without AD cont monitor VSS Recommendations To Nursing Amount of Assist Needed 1 Person Assist Discharge Recommendations PT Discharge Recommendations SNF Rehab Other Discharge Recommendations Pt is homeless and require further assessment for d/c planning Equipment Needed for Home Before will cont monitor pt's Discharge mobility status. FWW possibly
--- NOTE | 2018-08-02 13:00 | PM.PN.1 ---
Subjective Date Patient Seen: 08/02/18 Time Patient Seen: 13:00 Interval history: POD #2 After exploratory laparotomy with repair of duodenal ulcer and Magnus patch. Mr. booth is agitated and very much wants to have something to drink. His epidural seems to be helping him significantly. He spiked a temp of a 102? over night and another set of blood cultures were obtained. At this time, the original blood cultures have not grown anything. Mendiola remains in place. He is complaining of some itching and watering of his left eye. Exam Vital Signs (past 8 hours): - 08/02/18 08:42 08/02/18 09:19 08/02/18 09:23 Temperature Pulse Rate 92 H 90 Respiratory Rate 16 20 Blood Pressure 145/99 H Pulse Oximetry 98 94 94 08/02/18 10:08 08/02/18 12:05 Temperature 99 F Pulse Rate 97 H 87 Respiratory Rate 24 20 Blood Pressure 148/71 H 158/97 H Pulse Oximetry 91 96 Oxygen Delivery Method Room Air Oxygen Flow Rate 2 Narrative Exam Narrative: Lungs are essentially clear bilaterally. There is decreased respiratory effort Heart is regular rate and rhythm and tachycardia has resolved abdomen: Soft, minimal tenderness to palpation. The incision is well approximated and there is no evidence of erythema. Drain is in place and draining serous fluid only. Extremities: No calf tenderness and no edema Objective Labs Result Diagrams: 08/02/18 04:39 08/02/18 04:39 Labs: Laboratory Results - last 24 hr 08/02/18 08/02/18 04:39 04:39 WBC 9.7 RBC 3.80 L Hgb 11.4 L Hct 34.4 L MCV 90.5 MCH 29.9 MCHC 33.1 RDW 13.9 Plt Count 158 Neut % (Auto) 77.2 H Lymph % (Auto) 14.3 L [place] % (Auto) 7.6 Eos % (Auto) 0.4 L Baso % (Auto) 0.5 Neut # (Auto) 7500 H Lymph # (Auto) 1400 [place] # (Auto) 700 Eos # (Auto) 0 Baso # (Auto) 100 Sodium 138 Potassium 3.5 Chloride 108 H Carbon Dioxide 26 BUN 15 Creatinine 1.10 Estimated GFR > 60.0 BUN/Creatinine Ratio 13.6 Glucose 106 H Calcium 7.9 L Phosphorus 2.5 Assessment & Plan Assessment & Plan narrative: Recovering gradually after perforated duodenal ulcer. Will continue Zosyn, Flagyl, and Diflucan. Our plan is to continue strict until Wednesday and then a limited Gastrografin swallow before resuming antral feeding.
--- NOTE | 2018-08-02 13:25 | PM.PN.1 ---
Subjective Date Patient Seen: 08/02/18 Time Patient Seen: 13:26 Interval history: POD#2 for exploratory laparotomy for duodenal ulcer. Thoracic epidural in place, pain well controlled with no need for breakthrough medication. Remains NPO per surgery. Exam Vital Signs (past 8 hours): - 08/02/18 08:42 08/02/18 09:19 08/02/18 09:23 Temperature Pulse Rate 92 H 90 Respiratory Rate 16 20 Blood Pressure 145/99 H Pulse Oximetry 98 94 94 08/02/18 10:08 08/02/18 12:05 Temperature 99 F Pulse Rate 97 H 87 Respiratory Rate 24 20 Blood Pressure 148/71 H 158/97 H Pulse Oximetry 91 96 Oxygen Delivery Method Room Air Oxygen Flow Rate 2 Narrative Exam Narrative: Metapore tape over catheter insertion site, but no pain, swelling, or TTP. Block to cold sensation T5-L1 on right, T5-10 on left. Block covers incision site well. Objective Labs Result Diagrams: 08/02/18 04:39 08/02/18 04:39 Labs: Laboratory Results - last 24 hr 08/02/18 08/02/18 04:39 04:39 WBC 9.7 RBC 3.80 L Hgb 11.4 L Hct 34.4 L MCV 90.5 MCH 29.9 MCHC 33.1 RDW 13.9 Plt Count 158 Neut % (Auto) 77.2 H Lymph % (Auto) 14.3 L [place] % (Auto) 7.6 Eos % (Auto) 0.4 L Baso % (Auto) 0.5 Neut # (Auto) 7500 H Lymph # (Auto) 1400 [place] # (Auto) 700 Eos # (Auto) 0 Baso # (Auto) 100 Sodium 138 Potassium 3.5 Chloride 108 H Carbon Dioxide 26 BUN 15 Creatinine 1.10 Estimated GFR > 60.0 BUN/Creatinine Ratio 13.6 Glucose 106 H Calcium 7.9 L Phosphorus 2.5 Assessment & Plan Assessment & Plan narrative: Adequate pain control with good surgical site coverage with thoracic epidural, no evidence of complication. POD#2. Will keep current rate and concentration, consider weaning rate POD#4. Will discuss with surgery.
--- NOTE | 2018-08-02 14:08 | PC.NURSE ---
Rec'd pt sitting up to chair talking to . AO x3 and requesting to go back to bed. Denies pain but displays FLACC score of 3-4 with movement. Decreased sensation from approx nipple level to groin bilat assessed. Epidural dsg is dry, intact with small amount dried drainage under transparent dsg. Unable to assess site as medipore tape is covering, but pt denies pain/tenderness and no add'l drainage present. Assisted pt with hygiene care. Noted small amount of serous drainage to distal portion of gauze dsg. Reinforced with 4x4 gauze and secured with paper tape. Applied abd binder per Dr. Castorena's verbal order. Removed O2 for RA trial. SPO2 intermittently 92% but remains mostly 95% without s/s of respiratory distress. Lungs are dim. Moist cough noted. Secured NGT with new adhesive strip. BTs present but hypoactive. Denies flatus and nausea. TPN and LR infusing to DL PICC. Dr. Guan rounded and discussed epidural status, dsg assessment.
[2018-08-02] MEDS: FLUCONAZOLE 200 MG/100 ML PIGGYBACK 100 MG IV (14:54)
--- NOTE | 2018-08-02 17:00 | CM.DANOTE ---
DCP/assessment: Reviewed chart. Patient is a 47yr old male admitted to I. with abdominal pain. UDS positive for methamphetamines. No PCP listed. Primary payor is 1)[facility] 2)Medicaid. Received verbal referral from [facility] indicating that patient would benefit from AUDIOLOGIST involvement. Patient admitted by Dr. Carlson on 07-31-18. Patient underwent emergent laparotomy. Patient currently in room# 102 on TPN and IV abx. Medical d/c needs at this time unknown. AUDIOLOGIST met with patient and spouse/Priscila at bedside explained AUDIOLOGIST role. Spouse reports that they are currently residing in their automobile. Priscila reports that patient had just recently started to work on/off again before becoming ill. Priscila reports that they have been living in their car off/on. Spouse reports that they have also frequented shelters in [place] and surrounding areas. Spouse reports that currently she is staying nearby at patient's sister's while patient hospitalized. Spouse hopes to stay there for a few more days. No income reported by patient and spouse reports that she only received small amount in food stamps every month. Patient admits to illegal drug use but reports that he uses very little because he does not have money. Patient admits to smoking meth last around the . Patient denies illegal drugs as being an issue. At this time d/c needs unknown. Notified patient that planning will be based on medical needs. Patient and spouse agreeable to do whatever recommended. P: Pending. AUDIOLOGIST following closely to assist with d/c planning and provide patient with community resources for shelters, food doty, emergency services and substance abuse prior to d/c. Unclear if SNF will be considered? Follow closely. LAY Winn Discharge Planning/Care Management CM Discharge Assessment Start: 08/01/18 15:38 Freq: Status: Active Protocol: Document 08/01/18 15:39 ITV (Rec: 08/01/18 15:41 ITV [id number]) Discharge Planning Assessment Advance Directives? No History Provided By Medical Record Prior Living Arrangements Homeless Comment per documentation, pt and his sleep in their vehicle. Household Members significant other Review Status In Process Next Review Type Continued Stay Review Document 08/02/18 16:58 KJS (Rec: 08/02/18 17:00 KJS [email or web address]) Discharge Planning Assessment Assigned Route Specialist LAY Winn Contact Information Priscila Warren (spouse) Advance Directives? No History Provided By Patient Significant Other Medical Record Has Patient been admitted in last 30 No days? Prior Living Arrangements Homeless Comment per documentation, pt and his sleep in their vehicle. Household Members significant other Type of transporation used prior to Drives own vehicle admit Independent with ADL's Yes Is patient alert and oriented? Yes Caregiver for Another No Barriers to Discharge Yes Comment Pending medical needs. Transportation Arrangement Patient and spouse have automobile. Whiteboard Updated in Patient Room with Yes name and ext. # of Route Specialist Review Status In Process Please Provide Date Initial DC 08/02/18 Assessment Was Performed Next Review Type Continued Stay Review
[2018-08-02] MEDS: AA 5 %/CALCIUM/LYTES/DEXT 20 % 1,000 ML with MULTIVITAMIN 10 ML, TRACE ELEMENTS 1 ML 42.125 ML IV (17:59)
[2018-08-02] MEDS: LACTATED RINGERS 1,000 ML 58 ML IV (18:00)
[2018-08-02] MEDS: ACETAMINOPHEN 650 MG SUPP PR (18:08)
--- NOTE | 2018-08-02 19:11 | PC.NURSE ---
Addendum entered by Elizabeth Mcdermott R.N. 08/02/18 21:47: Midline abdominal and OLIMPIA dressing changed with gauze and tape, moderate amount of serous drainage around OLIMPIA site. Midline incision is well approximated with sailaja. No redness or drainage. PICC line dressing changed. Original Note: 1800- on vital sign check, pt BP 163/104, HR 105, Temp 101.1F, 95% on 2LNC. Given tylenol 650mg DC, placed fan in room. On temp recheck 45mins later temp 99.2F. BP remains 163/103, HR 95. Call to Dr. Castorena to alert of hypertension and fever. No new orders, cont to monitor. Pt states pain is well controlled with epidural.
[2018-08-02] MEDS: ENOXAPARIN 40 MG/0.4 ML SYRINGE SUBCUT (20:57)
[2018-08-03] VITALS (7 sets, daily range): BP systolic 113–160; BP diastolic 73–107; PULSE 80–100; RESP 18–22; TEMP 36.9–38.2; O2SAT 93–96
[2018-08-03] MEDS: PIPERACILLIN-TAZO 3.375 GM/50 ML FROZ.PIGGY IV ×3 (01:24→16:39)
[2018-08-03] MEDS: metroNIDAZOLE 500 MG/100 ML PIGGYBACK 100 MG IV ×3 (04:50→22:00)
[2018-08-03] MEDS: PANTOPRAZOLE 40 MG VIAL IV ×2 (08:49→22:00)
--- NOTE | 2018-08-03 10:25 | PT.IPTN ---
Current Diagnoses Perforation of intestine (nontraumatic) (07/31/18) Surgery Performed Operation Date: 07/31/18 04:20 <No data on this case meets the specified criteria> Physical Therapy Treatment Note M2 PT-IP Current Condition Start: 08/01/18 10:47 Freq: NEEDED Status: Active Protocol: Document 08/01/18 14:40 HH (Rec: 08/01/18 16:01 [email or web address]) Physical Therapy Current Condition Current Condition Evaluation Date 08/01/18 Treatment Diagnosis s/p exploratory laparotomy, epidural, impaired gait and activity tolerance Onset Date 07/31/18 Precautions Abdominal Surgery Precautions Log Roll Lifting Restrictions Gait Belt above Incisional Area Weight Bearing Status Weight Bearing Status Weight Bear as Tolerated M3 PT-IP Subjective Start: 08/01/18 10:47 Freq: NEEDED Status: Active Protocol: Document 08/03/18 10:09 SA (Rec: 08/03/18 10:25 SA [id number]) Subjective Physical Therapy Visit Type Type Treatment Note Visit Start Time 09:20 Visit Stop Time 09:45 Total Visit Minutes 25 Notes Pt's present for PT session. Number of MANAGER SECONDARY Visits 2 Physical Therapy Visit Comments Patient Comments Pt denies pain and is agreeable to PT this AM. Therapy Pain Assessment Pain When Pain Assessed During Mobility Pain Present Pain Present Denied Pain M4 PT-IP Mobility and Gait Start: 08/01/18 10:47 Freq: NEEDED Status: Active Protocol: Document 08/03/18 10:09 SA (Rec: 08/03/18 10:25 SA [id number]) PT-Transfer Assessment Sit to and From Stand Sit to and from Stand Standby Assistance Use of Upper Extremities Equipment Transfer Assistive Device Front Wheeled Walker Orthotic/Prosthetic Devices or Brace: No Transfers Transfer Destination Chair Transfer Technique Stand Step Pivot Transfer Ability Level of Assist Standby Assistance Use of Upper Extremities Comments Mobility Comments Sit to stands from chair with SBA and use of UEs. Stand pivot txs with SBA. Pt needs assist with managing lines/02 cord but not with mobility itself. Review of log roll technique for SUP<>Sit. Gait Assessment Gait Gait Assistance Required: Standby Assistance 2 Person Assist Distance (Feet) 175 Able to Maintain Weight Bearing Status Yes During Gait Assistive Devices Assistive Device Front Wheeled Walker Orthotic/Prosthetic Devices or Brace: No Gait Deviations General Gait Pattern Decreased Stride Length Decreased Feet Clearance Factors Limiting Gait Function Factors Limiting Gait Function Decreased Activity Tolerance Decreased Strength Pain Respiratory Distress Comments Gait Comments Gait training in halls with managing 02 tank and myself managing IV pole. Pt had no LOB and completed 4 - 180 degree turns safely. Cues for pacing and PLB with activity. Stair Climbing Assessment Comments Stair Climbing Comments did not attempt PT-Balance Assessment Comments Other Balance Tests/Deviations/Treatment Standing marching in place and : heel raises with good tolerance and no LOB, SBA and use of FWW. M5 PT-IP Objective Assessments Start: 08/01/18 10:47 Freq: NEEDED Status: Active Protocol: Document 08/01/18 14:40 HH (Rec: 08/01/18 16:01 [email or web address]) Orientation Orientation/Cognition Level of Alertness Alert Orientation Name Age Birthday Month Date Year Day of Week Place Situation Language Function Ability No Deficits Noted Safety Awareness Understands Safety Issues Memory Description No Deficits Noted Gross Range of Motion Upper Extremity ROM Assessment Within Functional Limits Lower Extremity ROM Assessment Within Functional Limits Strength Upper Extremity Strength Assessment Within Functional Limits Lower Extremity Strength Assessment Within Functional Limits Coordination Assessment Gross Coordination Gross Coordination WNL Sensation Assessment Sensation Gross Sensation WNL Muscle Tone Muscle Tone WNL Yes M6 PT-IP Treatment Start: 08/01/18 10:47 Freq: NEEDED Status: Active Protocol: Document 08/03/18 10:09 SA (Rec: 08/03/18 10:25 [id number]) Physical Therapy Treatment Exercises Exercises Ankle Pumps Seated Knee Flexion/Extension Education Education Provided Precautions Post-Op Packet Safety M7 PT-IP Assessment and Plan Start: 08/01/18 10:47 Freq: NEEDED Status: Active Protocol: Document 08/03/18 10:09 SA (Rec: 08/03/18 10:25 [id number]) PT Summary Assessment and Plan Potential Rehabilitation Potential Good Status of Condition at Evaluation Evolving Summary Assessment Summary Pt SBA with transfers and gait with use of FWW and no LOB. Right now assist required for 02 tank and IV pole management with mobility tasks. Pt encouraged to walk with staff 2 more times today. Treatment Plan Physical Therapy Treatment Plan Bed Mobility Training Transfer Training Gait Training Therapeutic Exercise Post Op Education Discharge Planning Other Recommendations and Next Treatment bed mob/ transfer/ gait Focus training as kike with/without AD cont monitor VSS Recommendations To Nursing Amount of Assist Needed 1 Person Assist Discharge Recommendations PT Discharge Recommendations Home with Assistance Other Discharge Recommendations Pt is homeless and require further assessment for d/c planning Equipment Needed for Home Before will cont monitor pt's Discharge mobility status. FWW possibly
[2018-08-03] MEDS: SODIUM CHLORIDE 0.9% EPIDURAL (10:41)
[2018-08-03] MEDS: BUPIVACAINE 0.5% EPIDURAL (10:41)
--- NOTE | 2018-08-03 12:48 | PM.PNPO.1 ---
Subjective Date Patient Seen: 08/03/18 Time Patient Seen: 12:48 Interval history: Feels okay. Not really having any pain. Sense of humor seems to be returning. Exam Vital Signs (past 8 hours): - 08/03/18 07:24 08/03/18 12:00 Temperature 98.4 F 98.6 F Pulse Rate 96 H 96 H Respiratory Rate 20 18 Blood Pressure 153/107 H 139/97 H Pulse Oximetry 95 95 Oxygen Delivery Method Room Air,Nasal Cannula Oxygen Flow Rate 2 Narrative Exam Narrative: Patient has some wheezing on bilateral examination. Otherwise no rales. His heart regular rate and rhythm without murmur gallop. Dressing is intact on the midline and around the drain. No cellulitis appreciated. Abdomen is distended but soft. Epidural remains in place. [place] is in place. Objective Labs Result Diagrams: 08/02/18 04:39 08/02/18 04:39 Assessment & Plan Post-op Postoperative Procedures Operation Date: 07/31/18 04:20 <No data on this case meets the specified criteria> Postoperative status: doing well Postoperative plan narrative: Continue NG tube. Awaiting results of labs to order TPN. No major plans in the works. At some point will need remove his epidural. For now it seems to be doing a great job.
--- NOTE | 2018-08-03 13:01 | PM.PN.1 ---
Subjective Date Patient Seen: 08/03/18 Time Patient Seen: 13:01 Interval history: POD#3 for exploratory laparotomy duodenal ulcer. Pain is well controlled, no breakthrough meds needed. Exam Vital Signs (past 8 hours): - 08/03/18 07:24 08/03/18 12:00 Temperature 98.4 F 98.6 F Pulse Rate 96 H 96 H Respiratory Rate 20 18 Blood Pressure 153/107 H 139/97 H Pulse Oximetry 95 95 Oxygen Delivery Method Room Air,Nasal Cannula Oxygen Flow Rate 2 Narrative Exam Narrative: insertion site covered with metapore but no evidence of complication. No pain or TTP, no visible erythema. Block covering surgical site adequately. Objective Labs Result Diagrams: 08/02/18 04:39 08/02/18 04:39 Assessment & Plan Assessment & Plan narrative: Plan to continue epidural at current rate and concentration. Will consider weaning rate tomorrow. Still NPO per surgery. Anticipate keeping through POD#5. Will continue communicating with surgery re: POPM.
[2018-08-03 13:34] LABS: Add Manual Diff / Slide Review NO; Basophils Absolute Auto 0 /uL (0-100); Basophils Percent Auto 0.5 % (0-2); Eosinophils Absolute Auto 200 /uL (0-450); Eosinophils Percent Auto 2.5 % (2-4); Hematocrit 39.2 % (41-53); Hemoglobin 12.8 g/dL (13.5-17.5); Lymphocytes Absolute Auto 1300 /uL (1100-4500); Mean Corpuscular HGB Conc 32.6 % (30-36); Mean Corpuscular Hemoglobin 29.6 PG (26-34); Mean Corpuscular Volume 90.7 fL (80-100); Monocytes Absolute Auto 700 /uL (0-900); Monocytes Percent Auto 7.8 % (3-14); Neutrophils Absolute Auto 7100 /uL (1500-7000); Neutrophils Percent Auto 75.2 % (50-75); Platelet Count 201 X10^3/uL (150-400); Red Blood Cell Count 4.32 X10^6/uL (4.5-5.9); White Blood Cell Count 9.4 X10^3/uL (4.5-11.0)
[2018-08-03] MEDS: LACTATED RINGERS 1,000 ML 58 ML IV (13:41)
[2018-08-03 13:48] LABS: Alanine Aminotransferase 23 IU/L (21-72); Albumin 3.1 g/dL (3.5-5.0); Alkaline Phosphatase 60 U/L (38-126); Aspartate Aminotransferase 15 IU/L (17-59); BUN Creatinine Ratio 7.8 (6-22); Bilirubin Total 0.7 mg/dL (0.2-1.3); Blood Urea Nitrogen 7 mg/dL (9-20); Calcium 8.2 mg/dL (8.4-10.2); Carbon Dioxide 26 mmol/L (22-32); Chloride 106 mmol/L (98-107); Estimated Glomerular Filt Rate > 60.0 mL/min (>60); Glucose 91 mg/dL (70-100); HEMOLYSIS < 15 (0-50); Magnesium 2.1 mg/dL (1.6-2.3); Phosphorous 2.5 mg/dL (2.5-4.5); Potassium 3.3 mmol/L (3.4-5.1); Sodium 141 mmol/L (137-145); Total Protein 6.1 g/dL (6.3-8.2)
[2018-08-03] MEDS: FLUCONAZOLE 200 MG/100 ML PIGGYBACK 100 MG IV (15:25)
[2018-08-03] MEDS: POTASSIUM PHOSPHATE 15 MMOL in DEXTROSE 5% IN WATER 250 ML 63.75 ML IV (17:23)
[2018-08-03] MEDS: FAT EMULSIONS 50 GM/250 ML EMULSION IV (18:00)
[2018-08-03] MEDS: AA 5 %/CALCIUM/LYTES/DEXT 20 % 1,000 ML with MULTIVITAMIN 10 ML, TRACE ELEMENTS 1 ML, P... 42.125 ML IV (18:00)
[2018-08-03] MEDS: ENOXAPARIN 40 MG/0.4 ML SYRINGE SUBCUT (20:57)
[2018-08-04] VITALS (7 sets, daily range): BP systolic 126–152; BP diastolic 77–91; PULSE 68–108; RESP 12–20; TEMP 37.3–37.6; O2SAT 91–98
[2018-08-04] MEDS: PIPERACILLIN-TAZO 3.375 GM/50 ML FROZ.PIGGY IV ×3 (00:32→16:58)
[2018-08-04] MEDS: SODIUM CHLORIDE 0.9% EPIDURAL ×2 (01:17→18:02)
[2018-08-04] MEDS: BUPIVACAINE 0.5% EPIDURAL ×2 (01:17→18:02)
[2018-08-04] MEDS: metroNIDAZOLE 500 MG/100 ML PIGGYBACK 100 MG IV ×3 (05:17→20:13)
--- NOTE | 2018-08-04 06:21 | PC.NURSE ---
Epidural of bupivicane infusing at 6ml/hr continues to control abdominal pain, binder in place over D&I drsg, OLIMPIA site leaks small serous drainage, minimal output into OLIMPIA. NTG to LIS patent with small thin bile fluid out. Up to BSC, had large loose dark stool, guaiac positive, bowel sounds and flatus present.
[2018-08-04] MEDS: PANTOPRAZOLE 40 MG VIAL IV ×2 (08:41→20:13)
--- NOTE | 2018-08-04 10:20 | PT.IPTN ---
Current Diagnoses Perforation of intestine (nontraumatic) (07/31/18) Surgery Performed Operation Date: 07/31/18 04:20 Actual Procedures p Gastrectomy(Not Applicable) - Marquez Carlson MD Physical Therapy Treatment Note M2 PT-IP Current Condition Start: 08/01/18 10:47 Freq: NEEDED Status: Active Protocol: Document 08/01/18 14:40 HH (Rec: 08/01/18 16:01 HH [id number]) Physical Therapy Current Condition Current Condition Evaluation Date 08/01/18 Treatment Diagnosis s/p exploratory laparotomy, epidural, impaired gait and activity tolerance Onset Date 07/31/18 Precautions Abdominal Surgery Precautions Log Roll Lifting Restrictions Gait Belt above Incisional Area Weight Bearing Status Weight Bearing Status Weight Bear as Tolerated M3 PT-IP Subjective Start: 08/01/18 10:47 Freq: NEEDED Status: Active Protocol: Document 08/04/18 10:20 GGD (Rec: 08/04/18 10:46 GGD [email or web address]) Subjective Physical Therapy Visit Type Type Treatment Note Visit Start Time 09:50 Visit Stop Time 10:15 Total Visit Minutes 25 Number of OCCUPATIONAL HEALTH NURSE Visits 3 Physical Therapy Visit Comments Patient Comments Pt willing to work with therapy. M4 PT-IP Mobility and Gait Start: 08/01/18 10:47 Freq: NEEDED Status: Active Protocol: Document 08/04/18 10:20 GGD (Rec: 08/04/18 10:46 GGD [email or web address]) PT-Bed Mobility Assessment Supine to Sit Supine to Sit Contact Guard Assistance Bedrails Scooting Scooting to Edge of Bed Standby Assistance PT-Transfer Assessment Sit to and From Stand Sit to and from Stand Standby Assistance Use of Upper Extremities Equipment Transfer Assistive Device Front Wheeled Walker Transfers Transfer Destination Chair Transfer Ability Level of Assist Standby Assistance Use of Upper Extremities Gait Assessment Gait Gait Assistance Required: Standby Assistance Distance (Feet) 280 Assistive Devices Assistive Device None Gait Belt Front Wheeled Walker Gait Deviations General Gait Pattern Decreased Stride Length Decreased Feet Clearance Factors Limiting Gait Function Factors Limiting Gait Function Decreased Activity Tolerance Decreased Strength Pain Respiratory Distress Comments Gait Comments Ambulated 140 feet with FWW with SBA and then 140 feet without assistive device with SBA. min a For IV pole management. M5 PT-IP Objective Assessments Start: 08/01/18 10:47 Freq: NEEDED Status: Active Protocol: Document 08/01/18 14:40 HH (Rec: 08/01/18 16:01 [email or web address]) Orientation Orientation/Cognition Level of Alertness Alert Orientation Name Age Birthday Month Date Year Day of Week Place Situation Language Function Ability No Deficits Noted Safety Awareness Understands Safety Issues Memory Description No Deficits Noted Gross Range of Motion Upper Extremity ROM Assessment Within Functional Limits Lower Extremity ROM Assessment Within Functional Limits Strength Upper Extremity Strength Assessment Within Functional Limits Lower Extremity Strength Assessment Within Functional Limits Coordination Assessment Gross Coordination Gross Coordination WNL Sensation Assessment Sensation Gross Sensation WNL Muscle Tone Muscle Tone WNL Yes M6 PT-IP Treatment Start: 08/01/18 10:47 Freq: NEEDED Status: Active Protocol: Document 08/03/18 10:09 SA (Rec: 08/03/18 10:25 SA [id number]) Physical Therapy Treatment Exercises Exercises Ankle Pumps Seated Knee Flexion/Extension Education Education Provided Precautions Post-Op Packet Safety M7 PT-IP Assessment and Plan Start: 08/01/18 10:47 Freq: NEEDED Status: Active Protocol: Document 08/04/18 10:20 GGD (Rec: 08/04/18 10:46 GGD [email or web address]) PT Summary Assessment and Plan Summary Assessment Summary Pt improving with mobility. He needed less assist for be mobility. He was able to progress gait and stable without assistive device. Frequency of Treatment Frequency Of Treatment Once a Day Treatment Plan Other Recommendations and Next Treatment bed mob/ transfer/ gait Focus training as kike with/without AD cont monitor VSS Recommendations To Nursing Amount of Assist Needed 1 Person Assist Discharge Recommendations PT Discharge Recommendations Home with Assistance
--- NOTE | 2018-08-04 11:58 | P.PN_ITS ---
Subjective Date Patient Seen: 08/04/18 Time Patient Seen: 11:57 Interval history: Much brighter and happier. He is sitting up in a chair at the bedside and pain is well controlled. Denies any nausea. Tmax in the last 24 hours was 100.3 Exam Vital Signs (past 8 hours): - 08/04/18 04:15 Temperature 99.4 F Pulse Rate 92 H Respiratory Rate 16 Blood Pressure 152/91 H Pulse Oximetry 92 Oxygen Delivery Method Room Air Oxygen Flow Rate 2 Narrative Exam Narrative: Abdomen is soft and there are hypoactive bowel sounds. Drainage around the OLIMPIA drain but only scant drainage within it. Incision is clean and dry and intact. Objective Labs Result Diagrams: 08/03/18 13:25 08/03/18 13:25 Labs: Laboratory Results - last 24 hr 08/03/18 08/03/18 13:25 13:25 WBC 9.4 RBC 4.32 L Hgb 12.8 L Hct 39.2 L MCV 90.7 MCH 29.6 MCHC 32.6 RDW 14.0 Plt Count 201 Neut % (Auto) 75.2 H Lymph % (Auto) 14.0 L [place] % (Auto) 7.8 Eos % (Auto) 2.5 Baso % (Auto) 0.5 Neut # (Auto) 7100 H Lymph # (Auto) 1300 [place] # (Auto) 700 Eos # (Auto) 200 Baso # (Auto) 0 Sodium 141 Potassium 3.3 L Chloride 106 Carbon Dioxide 26 BUN 7 L Creatinine 0.90 Estimated GFR > 60.0 BUN/Creatinine Ratio 7.8 Glucose 91 Calcium 8.2 L Phosphorus 2.5 Magnesium 2.1 Total Bilirubin 0.7 AST 15 L ALT 23 Alkaline Phosphatase 60 Total Protein 6.1 L Albumin 3.1 L Globulin 3.0 Albumin/Globulin Ratio 1.0 Assessment & Plan Assessment & Plan narrative: Continued improvement after laparatomy for perforated ulcer with peritonitis. Will order UGI for the morning to check for leaking of the repair. Check labs in the AM
[2018-08-04] MEDS: ALBUTEROL 2.5 MG/3 ML NEB (ADULT) INH (13:14)
[2018-08-04] MEDS: FLUCONAZOLE 200 MG/100 ML PIGGYBACK 100 MG IV (15:47)
--- NOTE | 2018-08-04 16:21 | PM.PN.1 ---
Subjective Date Patient Seen: 08/04/18 Time Patient Seen: 16:21 Interval history: POD#4 ex lap, pt denies pain. Exam Vital Signs (past 8 hours): - 08/04/18 12:27 08/04/18 13:14 08/04/18 15:34 Temperature 99.5 F 99.2 F Pulse Rate 108 H 85 90 Respiratory Rate 14 16 19 Blood Pressure 126/82 148/77 H Pulse Oximetry 95 95 96 Oxygen Delivery Method Room Air Oxygen Flow Rate 0 Narrative Exam Narrative: alert, comfortable appearing, conversant, sitting in bed. Block to cold sensation equal bilaterally approximately T4-L1. Denies back pain, site without evidence of complication. Objective Labs Result Diagrams: 08/03/18 13:25 08/03/18 13:25 Assessment & Plan Assessment & Plan narrative: POD#4, good pain control. UGI planned for tomorrow. Hope to d/c TEP tomorrow if adequate pain control. Will cap epidural at 0600 tomorrow morning.
[2018-08-04] MEDS: FAT EMULSIONS 50 GM/250 ML EMULSION IV (17:57)
[2018-08-04] MEDS: LACTATED RINGERS 1,000 ML 58 ML IV (17:57)
[2018-08-04] MEDS: AA 5 %/CALCIUM/LYTES/DEXT 20 % 1,000 ML with MULTIVITAMIN 10 ML, TRACE ELEMENTS 1 ML, P... 42.125 ML IV (17:58)
[2018-08-04] MEDS: ENOXAPARIN 40 MG/0.4 ML SYRINGE SUBCUT (20:13)
[2018-08-05] VITALS: BP 163/81; PULSE 94; RESP 16; TEMP 37.1; O2SAT 92
--- NOTE | 2018-08-05 | DI.RAD.S_ITS ---
PROCEDURE: FL UPPER GI SMALL BOWEL INDICATIONS: Perforated duodenal ulcer TECHNIQUE: Gastrografin contrast material instilled through the patient's NG tube COMPARISON: None. FINDINGS: KUB: Preprocedural brass cutter film shows a normal bowel gas pattern. Surgical drain is noted and overlying skin sailaja. NG tube is seen with the tip projecting in the stomach There is normal appearance of the stomach and duodenum. No definite leakage Gastrografin contrast material is seen to suggest bowel perforation. There is normal transit time of contrast material to the rectum, without evidence of dilated small bowel loops. IMPRESSION: No radiographic evidence of duodenal perforation, or extraluminal contrast material identified. No evidence of small bowel obstruction. Dictated by: Vick Mayfield M.D. on 08/05/2018 at 9:34 Approved by: Vick Mayfield M.D. on 08/05/2018 at 9:37
[2018-08-05] MEDS: PIPERACILLIN-TAZO 3.375 GM/50 ML FROZ.PIGGY IV ×2 (01:14→10:29)
[2018-08-05 04:00] VITALS: BP 149/91; PULSE 90; RESP 20; TEMP 36.7; O2SAT 94
[2018-08-05] MEDS: metroNIDAZOLE 500 MG/100 ML PIGGYBACK 100 MG IV ×2 (04:44→12:43)
[2018-08-05 05:33] LABS: Add Manual Diff / Slide Review NO; Basophils Absolute Auto 0 /uL (0-100); Basophils Percent Auto 0.4 % (0-2); Eosinophils Absolute Auto 400 /uL (0-450); Eosinophils Percent Auto 4.2 % (2-4); Hematocrit 36.6 % (41-53); Hemoglobin 12.3 g/dL (13.5-17.5); Lymphocytes Absolute Auto 1400 /uL (1100-4500); Lymphocytes Percent Auto 16.2 % (25-40); Mean Corpuscular HGB Conc 33.6 % (30-36); Mean Corpuscular Hemoglobin 30.2 PG (26-34); Monocytes Absolute Auto 900 /uL (0-900); Monocytes Percent Auto 10.6 % (3-14); Neutrophils Absolute Auto 6200 /uL (1500-7000); Neutrophils Percent Auto 68.6 % (50-75); Platelet Count 210 X10^3/uL (150-400); Red Blood Cell Count 4.07 X10^6/uL (4.5-5.9); Red Cell Distribution Width 13.8 % (11.6-14.8)
[2018-08-05 05:43] LABS: Alanine Aminotransferase 19 IU/L (21-72); Albumin 2.8 g/dL (3.5-5.0); Alkaline Phosphatase 54 U/L (38-126); Aspartate Aminotransferase 14 IU/L (17-59); BUN Creatinine Ratio 8.9 (6-22); Bilirubin Total 0.2 mg/dL (0.2-1.3); Blood Urea Nitrogen 8 mg/dL (9-20); Carbon Dioxide 22 mmol/L (22-32); Chloride 109 mmol/L (98-107); Estimated Glomerular Filt Rate > 60.0 mL/min (>60); Globulin 2.8 g/dL (1.7-4.1); Glucose 105 mg/dL (70-100); HEMOLYSIS < 15 (0-50); Magnesium 2.1 mg/dL (1.6-2.3); Potassium 3.5 mmol/L (3.4-5.1); Sodium 139 mmol/L (137-145); Total Protein 5.6 g/dL (6.3-8.2)
[2018-08-05 08:00] VITALS: BP 143/89; PULSE 84; RESP 16; TEMP 36.8; O2SAT 96
[2018-08-05] MEDS: PANTOPRAZOLE 40 MG VIAL IV ×2 (10:32→21:44)
--- NOTE | 2018-08-05 11:18 | PT.IPTN ---
Current Diagnoses Perforation of intestine (nontraumatic) (07/31/18) Surgery Performed Operation Date: 07/31/18 04:20 Actual Procedures p Gastrectomy(Not Applicable) - Marquez Carlson MD Physical Therapy Treatment Note M2 PT-IP Current Condition Start: 08/01/18 10:47 Freq: NEEDED Status: Active Protocol: Document 08/01/18 14:40 HH (Rec: 08/01/18 16:01 [email or web address]) Physical Therapy Current Condition Current Condition Evaluation Date 08/01/18 Treatment Diagnosis s/p exploratory laparotomy, epidural, impaired gait and activity tolerance Onset Date 07/31/18 Precautions Abdominal Surgery Precautions Log Roll Lifting Restrictions Gait Belt above Incisional Area Weight Bearing Status Weight Bearing Status Weight Bear as Tolerated M3 PT-IP Subjective Start: 08/01/18 10:47 Freq: NEEDED Status: Active Protocol: Document 08/05/18 11:15 GGD (Rec: 08/05/18 11:18 GGD [id number]) Subjective Physical Therapy Visit Type Type Administrative Note Notes Pt indepdent in room and walking halls per RN. Pt states that he has no needs for further PT. Will D/C pt from PT. Frequency of Treatment Frequency Of Treatment Discharge
--- NOTE | 2018-08-05 11:22 | PC.NURSE ---
Addendum entered by Bing Flowers R.N. 08/05/18 12:12: PT TRANSFERRED UP TO ROOM 216- REPORT GIVEN TO RN Original Note: PT TOLERATED D/C OF EPIDURAL AND LEONARD WITHOUT PROBLEM WELL NGT REMOVED POST GASTROGRAFFIN STUDY AND MD ORDER- HE IS MOVING BOWELS FREQUENTLY AND AMBULATING INDEPENDENTLY- VSS, AFEBRILE AND DROWSY BUT ORIENTED- TOLERATING CLEAR LIQUID DIET WELL NO C/O PAIN OR NAUSEA
--- NOTE | 2018-08-05 12:08 | CM.SWNOTE ---
Reviewed chart, discussed pt w/RN Bing in ICU today. Pt has now been DC by therapy team, no longer requiring skilled PT. Met w/pt and spouse Priscila. Priscila is very grateful that pt has gotten stronger functionally and will not require SNF. Priscila remembers the visit from TOOL LATHE OPERATORLinda Jaime and explains she does not anticipate SW needs. Priscila's family is funding a two week stay at a hotel to aid in pt's recovery upon his DC from [facility]. Both pt and spouse appreciative of this TOOL LATHE OPERATOR's visit and have contact information for [facility] TOOL LATHE OPERATOR team if any DC needs or concerns arise. Following closely. LAY Vargas
[2018-08-05] MEDS: LACTATED RINGERS 1,000 ML 58 ML IV (12:33)
[2018-08-05 12:38] VITALS: BP 148/100; PULSE 82; RESP 22; TEMP 37.4; O2SAT 98
[2018-08-05] MEDS: FLUCONAZOLE 200 MG/100 ML PIGGYBACK 100 MG IV (15:14)
[2018-08-05 15:35] VITALS: BP 156/98; PULSE 84; RESP 20; TEMP 37.6; O2SAT 96
--- NOTE | 2018-08-05 16:35 | PC.NURSE ---
Addendum entered by Isis Jain R.N. 08/05/18 18:34: michael pulled and heplock for shower. Original Note: pt alert and oriented up to br indep. having loose stool. denies pain-bt's quiet denies n/v. abd.binder in place with abd drsg in place under no drainage noted michael intact. at bs.
--- NOTE | 2018-08-05 17:22 | P.PN_ITS ---
Subjective Date Patient Seen: 08/05/18 Time Patient Seen: 17:20 Interval history: Patient feels much better. Has a liquid tray in front of him. His NG was pulled earlier after x-rays were performed. This showed no evidence of a leak. Breathing well. Would like to take a shower. Exam Vital Signs (past 8 hours): - 08/05/18 12:38 08/05/18 15:35 Temperature 99.4 F 99.7 F H Pulse Rate 82 84 Respiratory Rate 22 20 Blood Pressure 148/100 H 156/98 H Pulse Oximetry 98 96 Oxygen Delivery Method Room Air Oxygen Flow Rate 0 Narrative Exam Narrative: Lungs excellent effort. Clear. Abdomen he says that he has a pot belly normally and this is about the normal size for his belly. Staple line is intact. The drain is draining serous fluid. Objective Labs Result Diagrams: 08/05/18 04:55 08/05/18 04:55 Labs: Laboratory Results - last 24 hr 08/05/18 08/05/18 04:55 04:55 WBC 9.0 RBC 4.07 L Hgb 12.3 L Hct 36.6 L MCV 90.0 MCH 30.2 MCHC 33.6 RDW 13.8 Plt Count 210 Neut % (Auto) 68.6 Lymph % (Auto) 16.2 L [place] % (Auto) 10.6 Eos % (Auto) 4.2 H Baso % (Auto) 0.4 Neut # (Auto) 6200 Lymph # (Auto) 1400 [place] # (Auto) 900 Eos # (Auto) 400 Baso # (Auto) 0 Sodium 139 Potassium 3.5 Chloride 109 H Carbon Dioxide 22 BUN 8 L Creatinine 0.90 Estimated GFR > 60.0 BUN/Creatinine Ratio 8.9 Glucose 105 H Calcium 8.0 L Magnesium 2.1 Total Bilirubin 0.2 AST 14 L ALT 19 L Alkaline Phosphatase 54 Total Protein 5.6 L Albumin 2.8 L Globulin 2.8 Albumin/Globulin Ratio 1.0 Assessment & Plan Post-op Postoperative Procedures Operation Date: 07/31/18 04:20 Actual Procedures Side Surgeon p Gastrectomy Not Applicable Marquez Carlson MD Postoperative status: doing well Postoperative status narrative: No evidence of leak from his ulcer perforation repair. Postoperative plan narrative: Begun on liquids. Continue proton pump inhibitor. Will treat H pylori empirically.
[2018-08-05 19:50] VITALS: BP 143/93; PULSE 92; RESP 20; TEMP 38.1; O2SAT 94
[2018-08-05] MEDS: AMOXICILLIN 250 MG CAPSULE 1000 MG PO (21:43)
[2018-08-05] MEDS: ENOXAPARIN 40 MG/0.4 ML SYRINGE SUBCUT (21:44)
[2018-08-05] MEDS: CLARITHROMYCIN 500 MG TABLET PO (21:44)
[2018-08-06] VITALS: BP 156/96; PULSE 94; RESP 18; TEMP 37.2; O2SAT 96
[2018-08-06 05:45] LABS: Add Manual Diff / Slide Review NO; Basophils Absolute Auto 100 /uL (0-100); Basophils Percent Auto 0.8 % (0-2); Eosinophils Absolute Auto 400 /uL (0-450); Eosinophils Percent Auto 4.3 % (2-4); Hematocrit 38.1 % (41-53); Hemoglobin 12.6 g/dL (13.5-17.5); Lymphocytes Absolute Auto 1500 /uL (1100-4500); Lymphocytes Percent Auto 15.4 % (25-40); Mean Corpuscular HGB Conc 33.1 % (30-36); Mean Corpuscular Hemoglobin 29.6 PG (26-34); Mean Corpuscular Volume 89.2 fL (80-100); Monocytes Absolute Auto 1000 /uL (0-900); Monocytes Percent Auto 10.4 % (3-14); Neutrophils Absolute Auto 6900 /uL (1500-7000); Neutrophils Percent Auto 69.1 % (50-75); Platelet Count 243 X10^3/uL (150-400); Red Blood Cell Count 4.27 X10^6/uL (4.5-5.9); Red Cell Distribution Width 13.8 % (11.6-14.8)
[2018-08-06] MEDS: LACTATED RINGERS 1,000 ML 100 ML IV ×2 (06:17→16:28)
[2018-08-06 07:45] VITALS: BP 152/98; PULSE 89; RESP 18; TEMP 36.7; O2SAT 94
[2018-08-06] MEDS: PANTOPRAZOLE 40 MG VIAL IV (09:10)
[2018-08-06] MEDS: AMOXICILLIN 250 MG CAPSULE 1000 MG PO ×2 (09:10→20:07)
[2018-08-06] MEDS: CLARITHROMYCIN 500 MG TABLET PO ×2 (09:10→20:07)
[2018-08-06 11:20] VITALS: BP 153/98; PULSE 84; RESP 16; TEMP 37.2; O2SAT 93
--- NOTE | 2018-08-06 12:23 | P.PN_ITS ---
Subjective Date Patient Seen: 08/06/18 Time Patient Seen: 12:21 Interval history: patient feels okay. He feels like he runs hot every evening and that is normal for him. Tolerating p.o. thus far. No increased pain with p.o. intake. Exam Vital Signs (past 8 hours): - 08/06/18 07:45 08/06/18 11:20 Temperature 98.0 F 99.0 F Pulse Rate 89 84 Respiratory Rate 18 16 Blood Pressure 152/98 H 153/98 H Pulse Oximetry 94 93 Oxygen Delivery Method Room Air Oxygen Flow Rate 0 Narrative Exam Narrative: Lungs are clear to auscultation. No rales or rhonchi. Excellent effort. Heart regular rate and rhythm without murmur gallop. Abdomen is protuberant and soft. His midline looks fine. There is no drainage. Drain was removed yesterday. Alert and cooperative. Objective Labs Result Diagrams: 08/06/18 05:06 08/05/18 04:55 Labs: Laboratory Results - last 24 hr 08/06/18 05:06 WBC 10.0 RBC 4.27 L Hgb 12.6 L Hct 38.1 L MCV 89.2 MCH 29.6 MCHC 33.1 RDW 13.8 Plt Count 243 Neut % (Auto) 69.1 Lymph % (Auto) 15.4 L [place] % (Auto) 10.4 Eos % (Auto) 4.3 H Baso % (Auto) 0.8 Neut # (Auto) 6900 Lymph # (Auto) 1500 [place] # (Auto) 1000 H Eos # (Auto) 400 Baso # (Auto) 100 Assessment & Plan Post-op Postoperative Procedures Operation Date: 07/31/18 04:20 Actual Procedures Side Surgeon p Gastrectomy Not Applicable Marquez Carlson MD Postoperative status: doing well Postoperative plan narrative: I am not quite sure what is causing this low- grade temp. The was several days without it and it was back last night. I will observe him. Send a UA. His CBC is normal. If he has another elevation will perform a CT scan to rule out a small abscess. His antibiotics have been stopped except for his Diflucan. He was placed on medication for H pylori which includes Biaxin and amoxicillin. Both of those are oral.
[2018-08-06 15:30] VITALS: BP 157/87; PULSE 90; RESP 17; TEMP 37.8; O2SAT 93
[2018-08-06] MEDS: FLUCONAZOLE 200 MG/100 ML PIGGYBACK 100 MG IV (16:26)
[2018-08-06 19:50] VITALS: BP 144/98; PULSE 88; RESP 18; TEMP 37.7; O2SAT 94
[2018-08-06] MEDS: ENOXAPARIN 40 MG/0.4 ML SYRINGE SUBCUT (20:07)
[2018-08-06] MEDS: PANTOPRAZOLE 40 MG TABLET PO (20:07)
[2018-08-06 23:50] VITALS: BP 163/98; PULSE 92; RESP 16; TEMP 37.2; O2SAT 95
--- NOTE | 2018-08-07 | DI.CT.S_ITS ---
PROCEDURE: CT ABDOMEN PELVIS W CON INDICATIONS: low grade temp post TX perforated ulcer r/o abscess TECHNIQUE: After the administration of intravenous and oral contrast, 5 mm thick sections acquired from the diaphragm to the symphysis. 5 mm coronal and sagittal reformats were acquired. For radiation dose reduction, the following was used: automated exposure control, adjustment of mA and/or kV according to patient size. COMPARISON: [facility], CT, CT ABDOMEN PELVIS W CON, 07/31/2018, 1:45. FINDINGS: Image quality: Excellent. ABDOMEN: Lung bases: Moderately dense right lower lung consolidation and patchy parenchymal density at the left lung base. Small right pleural effusion.. Heart size is normal. Solid organs: Liver is slightly enlarged and with a micronodular contour.. Gallbladder is diffusely decompressed. Biliary system is non dilated. Pancreas enhances normally. Spleen is normal in size and enhancement. No adrenal nodules. Kidneys demonstrate normal size and enhancement, without hydronephrosis. Nonobstructing bilateral nephrolithiasis, largest stone is on the right, measuring 5 mm. Peritoneum and bowel: Trace right subdiaphragmatic fluid, mainly anterior to the liver. Moderate edema and minimal fat stranding in the wall of the distal stomach and first portion of the duodenum consistent with surgical changes of ulcer repair. Resolution of free intraperitoneal air. Small bowel is of normal caliber without evidence for obstruction. Liquid stool present in the colon demonstrating air-fluid levels in the transverse colon. There is moderate circumferential wall thickening of the distal descending colon and proximal sigmoid with trace adjacent inflammatory thickening of the fascia and trace pelvic fluid. Nodes and vessels: No retroperitoneal or mesenteric adenopathy by size criteria. Aorta and inferior vena cava are normal in size. Miscellaneous: A staple midline incision in the anterior abdominal wall with minor underlying inflammatory changes in subcutaneous and intraperitoneal fat. No adjacent fluid collections. PELVIS: Genitourinary: Urinary bladder is under distended and the wall is diffusely thickened. Prostate gland is nonenlarged. Miscellaneous: Small bilateral fat-containing inguinal hernias are present. Bones: No suspicious bony lesions. No vertebral body compression fractures. IMPRESSION: 1. Dense right lower lung consolidation suggesting atelectasis or pneumonia with small right effusion. 2. Circumferential wall thickening and questionable adjacent inflammation involving distal descending and proximal sigmoid colon suspicious for colitis, potentially C. difficile colitis. 3. Mild residual edema of the gastric antrum and proximal duodenum but no evidence for adjacent abscess. 4. Expected trace fluid around the liver and expected surgical changes to the abdominal wall and peritoneum. No abscess. 5. Partially filled urinary bladder, but with diffuse wall thickening. Exclude cystitis but correlation with UA. 6. Bilateral nonobstructing nephrolithiasis. Dictated by: Amalia Quijano M.D. on 08/07/2018 at 14:04 Approved by: Amalia Quijano M.D. on 08/07/2018 at 14:15
[2018-08-07 00:46] LABS: Bacteria Urine None Seen; RBC Urine None Seen (0-5/HPF); WBC Urine None Seen (0-5/HPF)
[2018-08-07 01:16] LABS: Appearance Urine UA CLEAR; Bilirubin Urine UA NEGATIVE (NEGATIVE); Color Urine UA YELLOW; Glucose Urine UA NEGATIVE (Negative); Ketones Urine UA NEGATIVE (NEGATIVE); Leukocyte Esterase Urine UA NEGATIVE (NEGATIVE); Nitrite Urine UA NEGATIVE (Negative); Occult Blood Urine UA NEGATIVE (Negative); Protein Urine UA NEGATIVE (Negative); Specific Gravity Urine UA 1.015 (1.000-1.035); Urobilinogen Urine UA 0.2 E.U./dL (0.2); pH Urine UA 7.5 (4.5-8.0)
[2018-08-07 01:17] LABS: Culture Indicated Urine Cult Not Indicated; Urine Comments Microscopic Normal
[2018-08-07] MEDS: LACTATED RINGERS 1,000 ML 100 ML IV ×2 (02:45→12:16)
[2018-08-07 03:30] VITALS: BP 148/94; PULSE 78; RESP 15; TEMP 36.7; O2SAT 95
--- NOTE | 2018-08-07 05:11 | PC.NURSE ---
patient emptied hat did not call said had average of 300 ml out each time . Asked patient to call us let us empty and measure output.
[2018-08-07] MEDS: PANTOPRAZOLE 40 MG TABLET PO ×2 (06:31→20:33)
[2018-08-07 07:30] VITALS: BP 109/72; PULSE 106; RESP 16; TEMP 36.6; O2SAT 99
[2018-08-07 11:00] VITALS: BP 146/74; PULSE 80; RESP 16; TEMP 36.9; O2SAT 97
[2018-08-07] MEDS: AMOXICILLIN 250 MG CAPSULE 1000 MG PO ×2 (11:35→20:33)
[2018-08-07] MEDS: CLARITHROMYCIN 500 MG TABLET PO ×2 (12:12→20:34)
--- NOTE | 2018-08-07 13:37 | PM.PNPO.1 ---
Subjective Date Patient Seen: 08/07/18 Time Patient Seen: 11:37 Interval history: Patient is a gentleman who had an exploration for perforated ulcer. He has been having low-grade temperatures every evening. He is afebrile during the day. Urinalysis does not suggest that he has a urinary tract infection. A CT scan was done today and the only finding I can see is a small right pleural effusion and right lower lobe consolidation and a small area. The patient was on broad-spectrum antibiotics and those were stopped. He was begun on empiric treatment for H pylori with Biaxin and amoxicillin. His low-grade temperatures recurred since stopping his IV antibiotics. He has not really received any coverage for MRSA. His wound did not seem to be the source of a low-grade temperature. He is tolerating a diet without problem. Exam Vital Signs (past 8 hours): - 08/07/18 07:30 08/07/18 11:00 Temperature 97.9 F 98.4 F Pulse Rate 106 H 80 Respiratory Rate 16 16 Blood Pressure 109/72 146/74 H Pulse Oximetry 99 97 Oxygen Delivery Method Room Air Oxygen Flow Rate 0 Narrative Exam Narrative: Good respiratory effort. Lungs clear. Abdomen is protuberant soft. Midline is intact. No cellulitis. Heart regular rate and rhythm without murmur gallop. Objective Labs Result Diagrams: 08/06/18 05:06 08/05/18 04:55 Labs: Laboratory Results - last 24 hr 08/06/18 20:20 Urine Color Yellow Urine Appearance Clear Urine pH 7.5 Ur Specific [place] 1.015 Urine Protein Negative Urine Glucose (UA) Negative Urine Ketones Negative Urine Occult Blood Negative Urine Nitrate Negative Urine Bilirubin Negative Urine Urobilinogen 0.2 Ur Leukocyte Esterase Negative Urine RBC None seen Urine WBC None seen Urine Bacteria None seen Ur Culture Indicated? Cult not indicated Micro UA Comment Microscopic normal Assessment & Plan Post-op Postoperative Procedures Operation Date: 07/31/18 04:20 Actual Procedures Side Surgeon p Gastrectomy Not Applicable Marquez Carlson MD Postoperative plan narrative: See above.
[2018-08-07 15:40] VITALS: BP 151/100; PULSE 97; RESP 16; TEMP 37.6; O2SAT 94
[2018-08-07] MEDS: PIPERACILLIN-TAZO 3.375 GM/50 ML FROZ.PIGGY IV ×2 (16:06→21:11)
[2018-08-07] MEDS: FLUCONAZOLE 200 MG/100 ML PIGGYBACK 100 MG IV (16:34)
[2018-08-07] MEDS: VANCOMYCIN 1,000 MG/200 ML FROZ.PIGGY 200 MG IV ×2 (18:05→23:47)
[2018-08-07 19:30] VITALS: BP 153/98; PULSE 94; RESP 18; TEMP 37.5; O2SAT 95
[2018-08-07] MEDS: ENOXAPARIN 40 MG/0.4 ML SYRINGE SUBCUT (20:33)
[2018-08-07 23:00] VITALS: BP 150/96; PULSE 99; RESP 16; TEMP 37.4; O2SAT 95
[2018-08-08] MEDS: LACTATED RINGERS 1,000 ML 100 ML IV (03:05)
[2018-08-08] MEDS: PIPERACILLIN-TAZO 3.375 GM/50 ML FROZ.PIGGY IV (03:07)
[2018-08-08 04:00] VITALS: BP 153/84; PULSE 89; RESP 16; TEMP 37.4; O2SAT 95
[2018-08-08] MEDS: PANTOPRAZOLE 40 MG TABLET PO (06:08)
[2018-08-08 08:00] VITALS: BP 152/91; PULSE 85; RESP 18; TEMP 37.4; O2SAT 94
[2018-08-08] MEDS: VANCOMYCIN 1,000 MG/200 ML FROZ.PIGGY 200 MG IV (08:31)
[2018-08-08] MEDS: LISINOPRIL 20 MG TABLET PO (10:39)
[2018-08-08] MEDS: AMOXICILLIN 250 MG CAPSULE 1000 MG PO (10:39)
[2018-08-08] MEDS: CLARITHROMYCIN 500 MG TABLET PO (10:39)
--- NOTE | 2018-08-08 11:06 | P.PN_ITS ---
Subjective Date Patient Seen: 08/08/18 Time Patient Seen: 10:58 Interval history: Patient denies any significant pain. No chest pain or shortness of breath. No dysuria or hematuria. Passing flatus and bowel movement without difficulty. Tolerating a regular diet without nausea or vomiting as well. No abdominal pain with oral intake. Denies any subjective fever or chills. No back pain. Ambulating without difficulty unassisted. He is actually somewhat anxious to be discharged home from the hospital as soon as possible. Exam Vital Signs (past 8 hours): - 08/08/18 04:00 08/08/18 08:00 Temperature 99.3 F 99.4 F Pulse Rate 89 85 Respiratory Rate 16 18 Blood Pressure 153/84 H 152/91 H Pulse Oximetry 95 94 Oxygen Delivery Method Room Air Oxygen Flow Rate 0 Narrative Exam Narrative: Well-nourished well-developed mildly obese male sitting comfortably in bed in no acute distress. is at the bedside for my entire visit. He has had maximal temperature of a 100.0? over the last 24-48 hours. Current temperature is approximately 99.4. His temperature curve has been in the 99- 99.8 degree range over the last 24 hr. He has not been tachycardic at any time. Blood pressure is normal if not mildly elevated. Room-air saturation 94% Sclera nonicteric No crackles or wheezes Regular rate rhythm Abdomen is obese but soft and nondistended. He is essentially nontender to palpation today. Certainly no guarding or rebound. No ascites. His incision is clean, dry, and intact. There is very minimal normal inflammatory changes at the upper aspect of the wound measuring approximately 1 cm in greatest diameter adjacent to the staple. Certainly no significant erythema or fluid collection. No expressible wound drainage. His drain was removed 2 days ago now. Extremities show no clubbing, cyanosis, or edema Objective Labs Result Diagrams: 08/06/18 05:06 08/05/18 04:55 Labs: No new laboratory or radiographic studies reviewed today I have personally reviewed his upper GI study as well as a CT scan of the abdomen and pelvis done over the last several days. Findings are as previously documented. He does have pulmonary infiltrate with atelectasis and right pleural effusion on yesterday's CT scan. Urinalysis was unremarkable. All blood and peritoneal fluid cultures have remained no growth. Assessment & Plan Assessment & Plan narrative: 47-year-old male postoperative day 8 from laparotomy with repair of perforated duodenal ulcer and associated peritonitis who overall is doing quite well clinically. Low-grade temperatures of unclear etiology although I suspect a pulmonary infiltrate and atelectasis as the likely source. No evidence of urinary tract infection, intra-abdominal infection, abscess, or wound infection. Doubt PICC line infection. Patient has been on oral antibiotics for the presumed pneumonia as well as the addition of intravenous antibiotics within the last 24 hr. However, his recent white blood cell count was completely unremarkable 2 days ago. Given the patient's overall clinical status I would be inclined to stop his intravenous antibiotics today and treat him for another 24 hr with oral antibiotics under observation as an inpatient to assess for any further fevers. In addition, we will repeat his laboratory studies tomorrow including CBC and procalcitonin level. If he has no temperature above 100.0? and his laboratory studies are otherwise unremarkable then I believe he could be discharged from the hospital at that time tomorrow with oral antibiotics for a complete 2 week course. If he has evidence of leukocytosis or recurrent fevers then I believe we would need to reinstitute his intravenous antibiotics and perform repeat culture studies. In the meantime he may ambulate and shower as desired. Continue regular diet and proton pump inhibitor therapy. He will clearly need proton pump inhibitor therapy twice daily for another 4 weeks or so then once daily thereafter. I discussed all this with the patient and his in detail. Case reviewed with the attending nurse as well as discharge coordinators. Arrangements have been made to discharge to a local motel when released. All questions were answered to his satisfaction, and he voiced understanding. Orders were written.
[2018-08-08 12:00] VITALS: BP 145/80; PULSE 96; RESP 16; TEMP 37.8; O2SAT 95
[2018-08-08 16:19] VITALS: BP 152/116; PULSE 92; RESP 20; TEMP 37.3; O2SAT 97
--- NOTE | 2018-08-08 18:39 | PC.NURSE ---
DC AMA Patient has been oriented x 3, ambulated hallways tonight. BP elevated 152/116, slight temp 99.1. At 1815 he came out in hallway and said I think I want to leave now. I asked him why, he said I just want to leave--I am doing just fine. Risks explained, post-op teaching reinforced. Pt instructed to wear abd binder and keep incision/staple line clean & dry. Instructed him to notify surgeon's office in the morning re: staple removal. PICC line to RUE removed, pressure drsg applied. Pt dressed himself, within 5 minutes walked out of room with all belongings, I talked about risks involved with leaving before Dr officially discharges him. Talked about his elevated BP and his temp of 99.1, this nurse expressing concern for patient, he said he understands but just need to leave. Aware Dr not able to write him prescriptions if leaves AMA. He agrees and still requests to leave. I asked him if he had a place to sleep tonight, he said oh yah. Von signed AMA form, AMNA Rizo walked with him to ER entrance where pt said Im driving myself -- my car is here. coupon collection clerk aware of incident.
--- NOTE | 2018-08-09 07:44 | P.DS_ITS ---
History of Present Illness Date Patient Seen: 08/09/18 Time Patient Seen: 07:44 Chief complaint: severe abdominal pain Narrative: 47-year-old gentleman who presented the emergency department several hours ago with approximately 36 hr history of acute onset abdominal pain that has been progressive and more severe in nature over the last 12-24 hours. He states that he has never had any kind episodes similar in the past. No fever or chills. He has had some nausea and vomiting earlier today. Describes the emesis is nonbloody and nonbilious. He has been progressively anorexic. He last ate a regular meal yesterday afternoon then drank a small amount of ice tea last night. He has had nothing since. His abdominal pain is described as quite sharp and unrelenting in nature. Pain is exacerbated with ambulation or cough. He has noticed subjective progressive distention of his abdomen as well. No dysuria or hematuria. No flatus throughout the day since last evening. Last bowel movement was yesterday morning and described as normal. No melena, hematochezia, or bright red blood per rectum. Two days ago he states he was in his usual state of health. Currently denies any chest pain or shortness of breath. No back pain. Discharge Providers Date of admission: 07/31/18 03:38 Discharge Date: 08/08/18 Consults: 07/31/18 04:42 Consult to Discharge Planning Routine Comment: Consult to Straddle Bug Operator Routine Comment: 08/01/18 08:00 Consult to PICC Line RN Routine Comment: 08/01/18 08:49 Consult to Physical Therapy Evaluate & Treat Comment: Physician Instructions: Evaluate and Treat Discharge provider: Marquez Carlson MD Summary Discharge Diagnosis: Perforated duodenal ulcer Gross peritonitis secondary to perforated duodenal ulcer Empiric treatment for Helicobacter pylori infection but not proven by biopsy or culture Hypertension, essential Right lower lobe atelectasis and pleural effusion secondary to poor inspiratory effort Exploratory laparotomy with primary repair of perforated duodenal ulcer and omental patch this admission Epidural catheter for postoperative analgesia per anesthesiology service Methamphetamine positivity at admission Marijuana positivity at admission PICC line placement this admission for TPN Kidney stones (Acute) Tobacco use (Acute) History of arthroscopic knee surgery (Acute) Hospital Course: Patient presented the emergency department with obvious peritonitis. He was taken urgently to the operating room for the above procedures. He tolerated this well and was taken to the intensive care unit postoperative for ongoing fluid resuscitation. He responded nicely although he did need Patel-Synephrine drip for the 1st 24 hr after surgery given his transient hypotension and low urine output secondary to peritonitis as well as epidural catheter. Drip was weaned and discontinued. His infection was controlled with broad-spectrum intravenous antibiotics. He was empirically treated with ampicillin and clarithromycin for Helicobacter pylori. He was placed on twice daily proton pump inhibitor therapy. By postoperative day 5 is ambulating without difficulty and the epidural catheter had been removed. He had spontaneous return of bowel bladder function. Upper GI study showed no evidence of leakage at the repair. Nasogastric tube was therefore discontinued and he was given liquid diet. He tolerated this well and his Jose-Sanchez drain was taken from the right upper quadrant region the following day. Diet was slowly advanced to regular. He was tolerating this at the time of discharge. Ambulating without assistance. Pain was well controlled with minimal oral anal gesics. However, patient had ongoing low-grade temperatures of approximately 100.0? but with normal white count. He was restarted on broad-spectrum antibiotics although he had no evidence of urinary tract infection or pneumonia. No evidence of wound infection. Repeat CT scan show no evidence of abdominal abscess or other intra-abdominal infectious source. He was placed on oral antibiotics at that time with a 24 hr planned observation to follow his white blood cell count and fever curve. However, the patient became insisted that he be discharged on the evening of August 08, 2018. Despite strong recommendations from myself as well as the nursing staff to continue with the inpatient treat ment plan he insisted on leaving against medical advice. He was therefore discharged AMA after signing the appropriate forms and being advised by his caregivers of the risks of discharge including . He also understood that he would not receive appropriate medication such as his antibiotics and proton pump inhibitor therapy. His risk of recurrent ulcers is therefore quite high. He voiced understanding. Status at Discharge Cognitive/behavioral status at discharge: oriented Functional status at discharge: independent ambulation Overall status at discharge: patient is not back to baseline Time Spent with Patient Less than 30 minutes Time spent discussing smoking cessation with patient: 3 to 10 minutes Exam Vital Signs (past 8 hours): Oxygen Delivery Method Room Air Oxygen Flow Rate 0 Narrative Exam Narrative: I did not have the opportunity to examine the patient prior to his leaving against medical advice as I was otherwise occupied with other duties. The attending nurse, Kindra, attended him as he signed out against medical advice However, please see my progress note from early in the day on August 08, 2018 Objective Labs Result Diagrams: 08/06/18 05:06 08/05/18 04:55 Labs: Repeat laboratory studies have been ordered for the morning of August 09, 2018 but the patient signed out against medical advice on the evening of August 08, 2018 obviously before they could be obtained. Discharge Plan Discharge Plan Patient Disposition: Left Against Medical Advice Discharge comment: Patient left against medical advice. Aware of risks involved, aware that cannot write him DC prescriptions if leaves AMA. RUE PICC line removed, pressure drsg applied. Dr Carlson notified. Discharge Med Rec/Prescriptions Prescriptions: No Action No Known Home Medications RF: 0 Discharge Data Attending Provider: Marquez Carlson Admit Date/Time: 07/31/18 03:38 Discharges patient from system. Discharge Date/Time: 08/08/18 18:35
== END 2018-08-08 18:35 | disposition left against medical advice (07) | DRG 710 ==
LOC: ED 07-31 03:15 → AC 07-31 03:39 → ICU 07-31 12:40 → AC 08-08 13:35 → ICU 09-27 08:26
PROVIDERS: Specialist; Surgery; Admitting Provider Surgery; Emergency Provider Emergency Medicine; Visit Provider Surgery
PROC: 0DU907Z Supplement Duodenum with Autologous Tissue Substitute, Open Approach (ICD-10-PCS; principal; 2018-07-31 04:20)
DX: A41.9 Sepsis, unspecified organism (principal); K26.5 Chronic or unspecified duodenal ulcer with perforation; R65.21 Severe sepsis with septic shock; K65.9 Peritonitis, unspecified; E86.1 Hypovolemia; Z59.0 Homelessness; I95.9 Hypotension, unspecified; F17.210 Nicotine dependence, cigarettes, uncomplicated; I10 Essential (primary) hypertension; J90 Pleural effusion, not elsewhere classified; J98.11 Atelectasis
CPT/HCPCS: 36415; 36573; 36591; 36592; 43840; 49905; 74177; 74245; 80048; 80053; 80305; 81001; 82962; 83605; 83690; 83735; 84100; 85014; 85018; 85025; 86850; 86900; 86901; 87040; 87070; 87075; 87205; 87797; 94640; 96361; 96374; 96375; 96376; 97116; 97162; 97530; 99223; 99283; 99291; 99292; 99406; B4189; C9113; J1100; J1170; J1450; J1650; J1885; J2250; J2270; J2405; J2543; J2704; J3370; J3480; J7613; Q9967

== ENCOUNTER 2018-12-16 07:41 | Day surgery (SDC) | payer OTHER, MEDICAID, SELFPAY ==
[2018-08-17 14:40] VITALS: BMI 31.0
--- NOTE | 2018-12-16 | PATH_ITS ---
[facility] Accession Number: [id number] . 01 Material submitted: . PART A: cecum - CECAL POLYP PART B: body - POLYP AT 90 . 01 Clinical history: . EGD; COLONOSCOPY . 02 Diagnosis: A. Cecum, Polyp, Biopsy: Benign lymphoid aggregate. . B. Colon, Polyp at 90, Biopsy: Tubular adenoma. MRV/12/23/2018 . 02 Electronically signed: . Lula Rhodes MD, Pathologist NPI- [id number] . 01 Gross description: . Part A: CECAL POLYP: Received in formalin are 2 fragment(s) of sauceda, soft tissue measuring 0.5 x 0.5 x 0.2 cm to 0.2 x 0.2 x 0.2 cm submitted entirely in 1 cassette(s) Part B: POLYP AT 90: Received in formalin are multiple fragment(s) of sauceda, soft tissue measuring 0.7 x 0.6 x 0.2 cm in aggregate submitted entirely in 1 cassette(s) /CKI /CKI . 02 Pathologist provided ICD-10: D12.6 . 02 CPT . 876593, [id number] Performed at: 01 [facility] [address], [place], [place] [id number] MD Titi Yang MD Phone: [phone] Performed at: 02 [facility] [address] [place], [place] [id number] MD Lula Rhodes MD Phone: [phone]
[2018-12-16 08:00] VITALS: BP 153/96; PULSE 76; RESP 16; TEMP 36.7; O2SAT 96; BMI 32.9
--- NOTE | 2018-12-16 09:03 | PM.HP.1 ---
History of Present Illness Date Patient Seen: 12/16/18 Time Patient Seen: 09:03 Chief complaint: [id number] EGD COLONOSCOPY Narrative: Patient is gentleman who had a perforated duodenal ulcer operated upon in August. He left the hospital Against Medical Advice but then followed up in clinic and received treatment for H pylori as well is ulcer. He has continued to take his omeprazole twice a day but apparently has run out as he informed the nurse but not me. He has stopped using illicit drugs he says. Patient History Medical History (Updated 12/16/18 @ 09:12 by Ronald Marcos MD) Duodenal ulcer perforation (Acute) Kidney stones (Acute) Tobacco use (Acute) Surgical History History of arthroscopic knee surgery (Acute) Social History household members: significant other Smoking Status: Current every day smoker Family & Social History Social History: household members significant other Tobacco & Substance use: Tobacco type cigarettes,cannabis/marijuana Smoking Status Current every day smoker alcohol intake frequency 0-2 drinks per day Substance Use Type marijuana,opiates,methamphetamine Meds Home Medications Medication Instructions Recorded Confirmed Type omeprazole 20 mg capsule,delayed 20 mg PO BID #60 cap 08/24/18 12/16/18 Rx release Allergies Allergy/AdvReac Type Severity Reaction Status Date / Time No Known Drug Allergies Allergy Verified 12/16/18 07:58 Review of Systems Review of Systems All systems reviewed & are unremarkable except as noted in HPI and below Genitourinary Comments: History of kidney stones about 9 months ago Exam Vital Signs (past 8 hours): - 12/16/18 08:00 Temperature 98.1 F Pulse Rate 76 Respiratory Rate 16 Blood Pressure 153/96 H Pulse Oximetry 96 Oxygen Delivery Method Room Air Narrative Exam Narrative: Pleasant cooperative patient no apparent distress. Lungs are clear to auscultation. No rales or rhonchi. Heart regular rate and rhythm no murmur gallop. Abdomen is soft nontender without mass. No obvious hernias. Patient is alert and oriented x3. Midline scar noted on the abdomen from his recent operation. Assessment & Plan Assessment & Plan narrative: The patient for a screening colonoscopy and an upper intestinal scope to confirm healing of his duodenal ulcer. I have discussed the procedure with him. Risks of bleeding, perforation which would necessitate major operation, failure to find remove all lesions, the potential tattoo were all discussed. All questions were answered. He wished to proceed.
[2018-12-16] MEDS: LIDOCAINE 4% SOLN 50 ML 20 ML TOP (09:13)
--- NOTE | 2018-12-16 09:13 | PM.PREOP ---
Pre-operative Note Interval Note History & Physical reviewed/Exam performed by Physician: Yes Changes to H&P: No ASA Class (for procedural sedation): II
[2018-12-16] MEDS: MIDAZOLAM 5 MG/5 ML VIAL IV (09:36)
[2018-12-16] MEDS: fentaNYL 250 MCG/5 ML INJ IV (09:37)
--- NOTE | 2018-12-16 09:44 | PM.OP.ENDO ---
Operative Date/Time/Diagnoses Date of procedure: 12/16/18 Time of procedure: 09:44 Pre-op diagnosis: History of perforated duodenal ulcer. First colonoscopy. Post-op diagnosis: same (Duodenal ulcer appeared to be healed. Patient had a cecal polyp and a polyp at 90 cm. Prep was poor. ) Procedure & Clinicians Study performed: EGD. Colonoscopy with cold biopsy. Same procedure as scheduled: Yes Indications: History of bleeding with perforation duodenum Surgeon: Ronald Marcos Procedure Notes SCOAP/Timeout: Performed Procedure in detail: The patient had topical anesthetic applied to oropharynx. She was placed in left lateral decubitus position and underwent IV sedation directed by the surgeon consisting of fentanyl and Versed. A bite block was inserted and the scope was advanced through it into the esophagus. The esophagus was unremarkable. GE junction was noted at 35 cm from the incisors. There was a fairly large 3 cm hiatal hernia.. The stomach insufflated well. There were no lesions seen in the body, antrum or at the incisura. The pyloric channel was patent. The duodenal bulb was distorted with what appeared to be a wide diverticulum which probably represents the perforation with an onlay out of omentum. There was no ulceration in the area. The mucosa was normal. The remainder the duodenum to the 4th part was unremarkable. The scope was brought back into the stomach and retroflexed. The proximal stomach was remarkable for the large hiatal hernia seen well from below. No other lesion noted.. The scope was straightened and brought out through the esophagus again. No lesions were seen. The scope was removed and the patient tolerated the procedure well. The patient was placed in the left lateral decubitus position and underwent IV sedation directed by the surgeon consisting of fentanyl and Versed. Digital exam was unremarkable. The prostate was flat.. The scope was inserted and advanced through the rectum into the sigmoid, descending, transverse, and ascending colon. The prep was quite poor but I persisted given the potential unreliability of the patient to return. The cecum was reached identified by the ileocecal valve. There was stool within the cecum but there was a polyp noted as well. I repeatedly biopsied it and it appeared to be removed. The scope was gradually brought out. One additional Polyp was found at 90 cm from the anal verge. It was quite tiny and removed with biopsy forceps. The scope ultimately was retroflexed in the rectum. The appearance was normal at the anal verge.. The scope was removed and the patient tolerated the procedure well. Given the poor prep and the finding of a rather large polyp in the cecum I would recommend a repeat colonoscopy in 1 year with a 2 day prep Scope withdrawal time: 4 minutes Sedation minutes: 27 Findings: duodenal ulcer (Appeared to be healed) and polyp (In the cecum and at 90 cm from the anal verge.) Specimen(s): other (Polyps) Complications: none Recommendations: Colonscopy in 1 year (With 2 day prep) Follow up: as needed Disposition: PACU
[2018-12-16 09:50] VITALS: BP 114/74; PULSE 73; RESP 11; TEMP 36.4; O2SAT 93
[2018-12-16 09:54] VITALS: BP 129/82; PULSE 74; RESP 11; O2SAT 92
[2018-12-16 10:00] VITALS: BP 125/78; PULSE 72; RESP 13; O2SAT 95
[2018-12-16 10:05] VITALS: BP 126/87; PULSE 72; RESP 14; TEMP 36.4; O2SAT 95
[2018-12-16 10:28] VITALS: BP 133/93; PULSE 74; RESP 20; TEMP 36.4; O2SAT 97
== END 2018-12-16 10:31 | disposition home or self-care (01) ==
PROVIDERS: Visit Provider Specialist
PROC: 0DJ08ZZ Inspection of Upper Intestinal Tract, Via Natural or Artificial Opening Endoscopic (ICD-10-PCS; CPT 43235; principal; 2018-12-16 08:45)
PROC: 0DJD8ZZ Inspection of Lower Intestinal Tract, Via Natural or Artificial Opening Endoscopic (ICD-10-PCS; CPT 45378; 2018-12-16 08:45)
DX: Z12.11 Encounter for screening for malignant neoplasm of colon (principal); D12.6 Benign neoplasm of colon, unspecified; K44.9 Diaphragmatic hernia without obstruction or gangrene; Z87.19 Personal history of other diseases of the digestive system; F17.210 Nicotine dependence, cigarettes, uncomplicated
CPT/HCPCS: 43235; 45380; 99152; J2250; J3010

== ENCOUNTER 2020-02-18 07:21 | Emergency (ER) | payer OTHER, MEDICAID, SELFPAY ==
[2018-08-17 14:40] VITALS: BMI 31.0
[2020-02-18 07:29] VITALS: BP 180/109; PULSE 118; RESP 26; TEMP 36.6; O2SAT 100; BMI 41.9
--- NOTE | 2020-02-18 07:58 | ED.SKABFB ---
HPI - Skin/Abscess/Foreign Bdy General Chief complaint: Skin/Abscess/Foreign Body Stated complaint: rash rt/lt leg Time Seen by Provider: 02/18/20 07:47 Source: patient Mode of arrival: Ambulatory Limitations: no limitations History of Present Illness HPI narrative: Patient is a 49-year-old male who presents with rash on his right inner thigh ongoing he says for 2 weeks. He says he denies any pruritus or swelling it seems to be scabbed over but fairly well localized. He denies any fever chills or sweats. His right leg is significantly swollen he has a history of DVT he is on warfarin. He is also noted to be quite hypertensive and slightly tachycardic admits to snorting meth just prior to arrival and he is out of his lisinopril. MD complaint: rash Related Data Previous Rx's Medication Instructions Recorded mupirocin 1 applictn TOP BID 7 Days #22 gram 02/18/20 Allergies Allergy/AdvReac Type Severity Reaction Status Date / Time No Known Drug Allergies Allergy Verified 12/16/18 07:58 Review of Systems Review of Systems Narrative: GENERAL: Denies chills,fever HEENT: Denies throat pain RESPIRATORY: Denies dyspnea, cough, wheezing CARDIOVASCULAR: Denies chest pain, palpitations GASTROINTESTINAL: Denies nausea, vomiting MUSCULOSKELETAL: Right leg swelling Denies extremity pain, injury SKIN: See HPI NEUROLOGIC: Denies weakness, dizziness, headache, numbness 8 point review of systems is negative except for those stated above and HPI Patient History Medical History Duodenal ulcer perforation (Acute) Kidney stones (Acute) Tobacco use (Acute) Surgical History History of arthroscopic knee surgery (Acute) Social History household members: significant other Smoking Status: Current every day smoker Smoking Status: Current every day smoker alcohol intake frequency: 0-2 drinks per day Substance Use Type: marijuana, opiates and methamphetamine Exam Initial Vital Signs Initial Vital Signs: Vital Signs Temperature 97.9 F 02/18/20 07:29 Pulse Rate 118 H 02/18/20 07:29 Respiratory Rate 26 H 02/18/20 07:29 Blood Pressure 180/109 H 02/18/20 07:29 Pulse Oximetry 100 02/18/20 07:29 GENERAL: Overweight male and in [no acute] distress. HEENT: Head atraumatic,EOMI, pupils reactive, face symmetric, [moist] mucous membranes CARDIOVASCULAR: Tachycardic regular RESPIRATORY: Breath sounds equal bilaterally, no wheezes rales or rhonchi. EXTREMITIES: Normal range of motion, no clubbing or edema. Neurovascularly intact Right leg significantly more swollen than left but non erythematous nontender patient says it is chronically that way NEUROLOGICAL: Alert and oriented x4.Normal gait and speech. SKIN: Right medial thigh erythematous area about 10 cm x 10 cm with scab over area no vesicles or lesions no streaking no fluctuation. There are a few small scattered areas immediately and across on the left medial thigh. Course Vital Signs Vital signs: Vital Signs - 8 hr 02/18/20 07:29 02/18/20 08:18 Temperature 97.9 F Pulse Rate 118 H 100 H Respiratory Rate 26 H 24 Blood Pressure 180/109 H 187/109 H Pulse Oximetry 100 98 MDM - Skin/Abscess/Foreign Bdy MDM Narrative Medical decision making narrative: Patient has chronic right leg swelling it is any worse than normal. He is on Coumadin. He is tachycardic hypertensive likely secondary to his methamphetamine use. His heart rate did come down. His rash certainly does not look like he is septic it is very well localized in even scabbed over. He is afebrile. Discharge Plan Departure Patient Disposition: Home Clinical Impression: Rash Discharge Date/Time: 02/18/20 08:19 Instructions: DI for Rash Activity Restrictions/Additional Instructions: *You have been diagnosed with rash *What to do: Keep area clean and dry with soap and water Please stop using meth and call your physician for refill on your lisinopril *Continue to take medications as directed Mupirocin 2% twice a day for 7 days *Follow up with your primary care provider in 2-3 days - at [facility] in [place] *Return to ER if you should have redness pus swelling pain fever or any new, worsening or concerning symptoms Prescriptions: New mupirocin 2 % ointment 1 applictn TOP BID 7 Days Qty: 22 RF: 0
[2020-02-18 08:18] VITALS: BP 187/109; PULSE 100; RESP 24; O2SAT 98
== END 2020-02-18 08:19 | disposition home or self-care (01) ==
PROVIDERS: Emergency Provider Emergency Medicine
DX: R21 Rash and other nonspecific skin eruption (principal)
CPT/HCPCS: 99281

== ENCOUNTER → 2020-09-05 10:26 | Outpatient (CLI) | payer OTHER, MEDICAID, SELFPAY ==
[2018-08-17 14:40] VITALS: BMI 31.0
[2020-09-05] MEDS: COVID-19 VACC #1, MRNA(MOD) 100 MCG/0.5 ML VIAL IM (10:35)
== END ==
PROVIDERS: Visit Provider Internal Medicine
DX: Z23 Encounter for immunization (principal)
CPT/HCPCS: 0011A; 91301

== ENCOUNTER → 2020-10-03 10:24 | Outpatient (CLI) | payer OTHER, MEDICAID, SELFPAY ==
[2018-08-17 14:40] VITALS: BMI 31.0
[2020-10-03] MEDS: COVID-19 VACC #2, MRNA(MOD) 100 MCG/0.5 ML VIAL IM (10:33)
== END ==
PROVIDERS: Visit Provider Internal Medicine
DX: Z23 Encounter for immunization (principal)
CPT/HCPCS: 0012A; 91301

== ENCOUNTER 2021-04-27 22:02 | Inpatient (IN) | payer OTHER, MEDICAID, SELFPAY ==
[2018-08-17 14:40] VITALS: BMI 31.0
[2021-04-27 22:07] VITALS: PULSE 112; RESP 28; TEMP 36.3; O2SAT 100
[2021-04-27] MEDS: ONDANSETRON 4 MG/2 ML INJ IV (22:38)
[2021-04-27] MEDS: HYDROMORPHONE 0.5 MG INJ IV (22:38)
[2021-04-27 22:41] VITALS: BP 170/108; PULSE 117; O2SAT 93
[2021-04-27 22:41] LABS: HEMOLYSIS 17 (0-50)
[2021-04-27 22:44] LABS: Hematocrit 49.3 % (41-53); Hemoglobin 16.1 g/dL (13.5-17.5); Mean Corpuscular HGB Conc 32.7 % (30-36); Mean Corpuscular Hemoglobin 26.9 PG (26-34); Mean Corpuscular Volume 82.2 fL (80-100); Platelet Count 409 X10^3/uL (150-400); Red Cell Distribution Width 16.2 % (11.6-14.8)
[2021-04-27 22:46] LABS: Alanine Aminotransferase 22 IU/L (<50); Albumin 4.6 g/dL (3.5-5.0); Albumin Globulin Ratio 1.1 (1.0-2.8); Alkaline Phosphatase 99 U/L (38-126); Aspartate Aminotransferase 30 IU/L (17-59); BUN Creatinine Ratio 11.7 (6-22); Bilirubin Total 2.6 mg/dL (0.2-1.3); Blood Urea Nitrogen 17 mg/dL (9-20); Calcium 10.2 mg/dL (8.4-10.2); Carbon Dioxide 25 mmol/L (22-32); Chloride 99 mmol/L (98-107); Estimated Glomerular Filt Rate 51.7 mL/min (>60); Globulin 4.2 g/dL (1.7-4.1); Glucose 165 mg/dL (70-100); Lipase 49 U/L (23-300); Potassium 4.3 mmol/L (3.4-5.1); Sodium 134 mmol/L (137-145); Total Protein 8.8 g/dL (6.3-8.2)
[2021-04-27 22:51] LABS: Add Manual Diff / Slide Review YES; White Blood Cell Count 31.8 X10^3/uL (4.5-11.0)
[2021-04-27 23:00] LABS: Troponin I 0.031 ng/mL (0.01-0.034)
--- NOTE | 2021-04-27 23:04 | ED.GENADULT ---
HPI - General Adult General Chief complaint: Abdominal Pain Stated complaint: STOMACH PAIN/VOMITTING Time Seen by Provider: 04/27/21 23:04 Source: patient Mode of arrival: Ambulatory History of Present Illness HPI narrative: 50-year-old gentleman who has not seen a primary care doctor for a number of years with a history of a perforated duodenal ulcer at 1 point had been on Coumadin denies any history of diabetes, hypertension or hyperlipidemia with morbid obesity and probable sleep apnea presents with severe onset abdominal pain starting about 130 this afternoon. He has 6 known abdominal hernias after his duodenal ulcer surgery. He has seen surgeons who have declined to repair these until he is able to lose some weight. He notes that he has not had any diarrhea has not had any blood in stool he is nauseated has been vomiting today. He has had chills today but no fevers. No significant cough, chest pain, palpitations. Related Data Home Medications Medication Instructions Recorded Confirmed No Known Home Medications 04/28/21 04/28/21 Allergies Allergy/AdvReac Type Severity Reaction Status Date / Time No Known Drug Allergies Allergy Verified 12/16/18 07:58 Review of Systems Review of Systems Narrative: Remainder of complete review of systems is otherwise unremarkable except for that included in the HPI. Patient History Medical History Duodenal ulcer perforation Kidney stones Tobacco use Surgical History History of arthroscopic knee surgery Social History household members: significant other Smoking Status: Current every day smoker Smoking Status: Current every day smoker alcohol intake frequency: 0-2 drinks per day Substance Use Type: marijuana, opiates and methamphetamine Exam Narrative Exam Narrative: General: Morbidly obese, slightly altered after Dilaudid dose given for is acute abdominal pain HEENT: Moist mucous membranes, normal sclera with reactive pupils, Neck: No JVD, supple Respiratory: Lungs with bibasilar crackles but no rhonchi. Full and symmetrical air movement Cardiac: Mild tachycardia but regular rhythm no murmurs no bruits Abdomen: Obese, multiple abdominal wall hernias tender in the left lower quadrant body habitus makes complete exam more challenging but I am not appreciating rebound or guarding this time. Skin: Warm and dry, no rashes Neurologic: Grossly neurologically intact with no obvious asymmetries or abnormalities Extremities: No trauma, well perfused Psych: In enough discomfort but cooperation is challenging for him, for overall insight to etiology today Initial Vital Signs Initial Vital Signs: Vital Signs Temperature 97.4 F L 04/27/21 22:07 Pulse Rate 112 H 04/27/21 22:07 Respiratory Rate 28 H 04/27/21 22:07 Pulse Oximetry 100 04/27/21 22:07 Procedures Cardioversion Cardiac rhythm post-cardioversion: Sinus tach Course Orders Ordered: ED Orders 04/27/21 22:25 Complete Blood Count AUTO DIFF Stat Comprehensive Metabolic Panel Stat Lipase Stat Troponin I Stat 04/27/21 22:27 COVID19 -Nasal swab/Pre-Proc Stat EKG-12 Lead Stat 04/27/21 23:16 CT abdomen pelvis w con Stat Lactate (Lactic Acid) Stat Urinalysis and Microscopic Stat 04/27/21 23:50 Blood Culture Stat 04/28/21 00:03 COVID19 - ADMIT ([employer] swab/PCR) Stat Lactated Ringer's (Lactated Ringers) 1,000 mls @ 150 mls/hr IV CONT ESTEE Last Admin: 04/28/21 02:09 Dose: 150 mls/hr Documented by: ROSALIND Piperacillin Sod/Tazobactam (Sod 4.5 gm/ Sodium Chloride) 100 mls @ 200 mls/hr IV NOW ONE Stop: 04/28/21 07:59 Morphine Sulfate (Morphine 2 Mg/Ml Inj) 2 mg IV Q2HR PRN PRN Reason: Pain, Moderate (4-6) Ondansetron HCl (Ondansetron 4 Mg/2 Ml Inj) 4 mg IV Q6HR PRN PRN Reason: Nausea And Vomiting Discontinued Medications Hydromorphone HCl (Hydromorphone 0.5 Mg Inj) 0.5 mg IV NOW ONE Stop: 04/27/21 22:28 Last Admin: 04/27/21 22:38 Dose: 0.5 mg Documented by: ILDEFONSO Sodium Chloride (Normal Saline 0.9%) 1,000 mls @ 1,000 mls/hr IV BOLUS ONE Stop: 04/28/21 00:15 Last Infusion: 04/28/21 00:47 Dose: 0 mls/hr Documented by: Admin: 04/27/21 23:36 Dose: 1,000 mls/hr Documented by: DEE Piperacillin Sod/Tazobactam (Sod 4.5 gm/ Sodium Chloride) 100 mls @ 200 mls/hr IV NOW ONE Stop: 04/27/21 23:17 Last Infusion: 04/28/21 00:18 Dose: 0 mls/hr Documented by: Admin: 04/27/21 23:35 Dose: 200 mls/hr Documented by: DEE Piperacillin Sod/Tazobactam (Sod 4.5 gm/ Sodium Chloride) 100 mls @ 200 mls/hr IV NOW ONE Stop: 04/28/21 00:55 Last Admin: 04/28/21 02:23 Dose: Not Given Documented by: ROSALIND Ondansetron HCl (Ondansetron 4 Mg/2 Ml Inj) 4 mg IV NOW ONE Stop: 04/27/21 22:28 Last Admin: 04/27/21 22:38 Dose: 4 mg Documented by: ILDEFONSO Vital Signs Vital signs: Vital Signs - 8 hr 04/27/21 22:07 04/27/21 22:41 04/27/21 23:40 Temperature 97.4 F L Pulse Rate 112 H 117 H 107 H Respiratory Rate 28 H 12 Blood Pressure 170/108 H 134/82 Pulse Oximetry 100 93 94 04/28/21 00:00 Temperature Pulse Rate 109 H Respiratory Rate 22 Blood Pressure Pulse Oximetry 97 Medical Decision Making Lab Data Result diagrams: 04/27/21 22:25 04/27/21 22:25 Labs: Lab Results 04/27/21 04/27/21 04/27/21 Range/Units 22:25 22:25 22:27 WBC 31.8 H* (4.5-11.0) X10^3/uL RBC 6.00 H (4.5-5.9) X10^6/uL Hgb 16.1 (13.5-17.5) g/dL Hct 49.3 (41-53) % MCV 82.2 (80-100) fL MCH 26.9 (26-34) PG MCHC 32.7 (30-36) % RDW 16.2 H (11.6-14.8) % Plt Count 409 H (150-400) X10^3/uL Neut % (Auto) Not Reportable Lymph % (Auto) Not Reportable Band[place] % (Auto) Not Reportable Eos % (Auto) Not Reportable Baso % (Auto) Not Reportable Lymph # (Auto) Not Reportable Band[place] # (Auto) Not Reportable Baso # (Auto) Not Reportable Total Counted 100 Seg Neutrophils % 72.0 H (38-70) % Band Neutrophils % 9.0 H (3-7) % Lymphocytes % (Manual) 6.0 L (25-45) % Monocytes % (Manual) 12.0 H (2-11) % Metamyelocytes % 1.0 H (-0) % Neutrophils # (Manual) 74168 H (7546-2258) /uL Platelet Estimate Adequate on smear RBC Morphology Normal morphology Sodium 134 L (137-145) mmol/L Potassium 4.3 (3.4-5.1) mmol/L Chloride 99 (98-107) mmol/L Carbon Dioxide 25 (22-32) mmol/L BUN 17 (9-20) mg/dL Creatinine 1.45 H (0.66-1.25) mg/dL Estimated GFR 51.7 L (>60) mL/min BUN/Creatinine Ratio 11.7 (6-22) Glucose 165 H (70-100) mg/dL Lactate (0.7-2.1) mmol/L Calcium 10.2 (8.4-10.2) mg/dL Total Bilirubin 2.6 H (0.2-1.3) mg/dL AST 30 (17-59) IU/L ALT 22 (<50) IU/L Alkaline Phosphatase 99 (38-126) U/L Troponin I 0.031 (0.01-0.034) ng/mL Total Protein 8.8 H (6.3-8.2) g/dL Albumin 4.6 (3.5-5.0) g/dL Globulin 4.2 H (1.7-4.1) g/dL Albumin/Globulin Ratio 1.1 (1.0-2.8) Lipase 49 (23-300) U/L SARS-CoV-2 (PCR) Negative (Negative) 04/28/21 04/28/21 Range/Units 00:03 00:23 WBC (4.5-11.0) X10^3/uL RBC (4.5-5.9) X10^6/uL Hgb (13.5-17.5) g/dL Hct (41-53) % MCV (80-100) fL MCH (26-34) PG MCHC (30-36) % RDW (11.6-14.8) % Plt Count (150-400) X10^3/uL Neut % (Auto) Lymph % (Auto) Band[place] % (Auto) Eos % (Auto) Baso % (Auto) Lymph # (Auto) Band[place] # (Auto) Baso # (Auto) Total Counted Seg Neutrophils % (38-70) % Band Neutrophils % (3-7) % Lymphocytes % (Manual) (25-45) % Monocytes % (Manual) (2-11) % Metamyelocytes % (-0) % Neutrophils # (Manual) (4011-9413) /uL Platelet Estimate RBC Morphology Sodium (137-145) mmol/L Potassium (3.4-5.1) mmol/L Chloride (98-107) mmol/L Carbon Dioxide (22-32) mmol/L BUN (9-20) mg/dL Creatinine (0.66-1.25) mg/dL Estimated GFR (>60) mL/min BUN/Creatinine Ratio (6-22) Glucose (70-100) mg/dL Lactate 1.8 (0.7-2.1) mmol/L Calcium (8.4-10.2) mg/dL Total Bilirubin (0.2-1.3) mg/dL AST (17-59) IU/L ALT (<50) IU/L Alkaline Phosphatase (38-126) U/L Troponin I (0.01-0.034) ng/mL Total Protein (6.3-8.2) g/dL Albumin (3.5-5.0) g/dL Globulin (1.7-4.1) g/dL Albumin/Globulin Ratio (1.0-2.8) Lipase (23-300) U/L SARS-CoV-2 (PCR) Negative (Negative) Imaging Data CT scan - abdomen/pelvis: Radiologist's Impression: INDINGS:? Image quality:? Fair.? Motion artifact.? ? Lung bases:? Unremarkable.? ? Heart:? No significant findings. There is fluid in the distal esophagus. ? ABDOMEN: Liver:? Hepatic steatosis.? No focal lesion.? ? Gallbladder:? Not distended. Biliary ducts:? No dilatation. Pancreas:? No peripancreatic fluid collection. Spleen:? No splenomegaly. Adrenal Glands:? No nodule. Kidneys and Ureters:? No hydronephrosis.? A few small nonobstructing kidney stones bilaterally which appears similar to the prior exam.? Suspect a small cyst in the left kidney. ? Stomach and Bowel:? The stomach is distended and fluid-filled.? Mechanical small bowel obstruction with transition point at the ventral abdominal wall hernia.? There is a small amount of fluid within the hernia sac.? The colon minimally protrudes into a ventral abdominal wall hernia but is not dilated.? The appendix is not dilated.? No significant diverticulosis. Peritoneum:? There is edema in the mid abdomen mesentery.? No pneumoperitoneum is demonstrated. ? Ventral Wall: ? Ventral abdominal wall hernia.? This is the site bowel obstruction.? There is a small amount of fluid in the hernia sac.? There is subcutaneous edema. Abdominal Nodes:? No retroperitoneal or mesenteric adenopathy by size criteria.? Vessels:? Aorta and inferior vena cava are normal in size.? ? PELVIS: Pelvic Organs:? Unremarkable.? ? Bladder:? Only partially distended limiting evaluation.? ? Pelvic Nodes:? Mildly prominent left groin node measuring 1.1 cm, (), not significantly changed.? Miscellaneous:? Suspect fat containing inguinal hernias. ? ? ? Bones:? There is a small focus of sclerosis at the T11 vertebral body posterior elements on the right, (07/12), unchanged since 2019. No additional sclerotic foci identified.? DDD. ? ? IMPRESSION:? 1. Small bowel obstruction due to ventral abdominal wall hernia.? There is edema within the mid abdomen mesentery, fluid within the hernia sac, and subcutaneous ventral abdominal wall. ? 2. Complex ventral abdominal wall hernias. ? 3. Small nonobstructing kidney stones. ? 4. Right vertebral body posterior elements sclerotic focus is unchanged compared to 2019. ? ? ? Comment: Findings were discussed with Cortney Servin at the time of dictation. ? ? Dictated by: Audi Amin M.D. on 04/28/2021 at 0:07 ? ? ECG Data Interpretation: Sinus tachycardia at a rate of 122 Left ventricular hyper No acute ischemic changes MDM Narrative Medical decision making narrative: 50-year-old gentleman with morbid obesity and multiple abdominal hernias now with an acute small-bowel obstruction due to a ventral abdominal hernia that has incarcerated with edema within the mid abdominal mesentery fluid within the hernia sac and the subcutaneous ventral wall. 1240 care is reviewed with Dr. Davis, general surgery. She will review the CT scan to decide if surgery needs to be immediately or can be postponed 3 or 4 hours to 1st thing in the morning. NG tube will be placed to hopefully decompress the got a bit prior to surgery. Findings plans and expectations are reviewed with patient and his . Questions are answered. He is safe for transfer to the floor Discharge Plan Departure Patient Disposition: Admitted As Inpatient Clinical Impression: Incisional hernia of anterior abdominal wall with obstruction, Morbid obesity, Apnea, sleep, Housing instability, housed, with risk of homelessness, Hypertension Admit Date/Time: 04/28/21 00:54 Admit Provider: Kath Davis
[2021-04-27 23:09] LABS: Neutrophils Absolute Manual 25758 /uL (3000-5900); Total Cells Counted 100
[2021-04-27 23:10] LABS: Platelet Estimate Adequate on smear; RBC Morphology Normal Morphology
--- NOTE | 2021-04-27 23:16 | DI.CT.S_ITS ---
PROCEDURE: CT ABDOMEN PELVIS W CON INDICATIONS: Severe left lower quadrant tenderness with significant leuko TECHNIQUE: After the administration of IV contrast, axial sections were acquired from the lung bases to the pubic symphysis. Coronal and sagittal reformats were performed. For radiation dose reduction, the following was used: automated exposure control, adjustment of mA and/or kV according to patient size. COMPARISON: [facility], CT, CT ABDOMEN PELVIS WITHOUT CONTRAST, 12/06/2020, 10:55. [facility], CT, CT ABDOMEN PELVIS W CON, 08/07/2018, 11:48. FINDINGS: Image quality: Fair. Motion artifact. Lung bases: Unremarkable. Heart: No significant findings. There is fluid in the distal esophagus. ABDOMEN: Liver: Hepatic steatosis. No focal lesion. Gallbladder: Not distended. Biliary ducts: No dilatation. Pancreas: No peripancreatic fluid collection. Spleen: No splenomegaly. Adrenal Glands: No nodule. Kidneys and Ureters: No hydronephrosis. A few small nonobstructing kidney stones bilaterally which appears similar to the prior exam. Suspect a small cyst in the left kidney. Stomach and Bowel: The stomach is distended and fluid-filled. Mechanical small bowel obstruction with transition point at the ventral abdominal wall hernia. There is a small amount of fluid within the hernia sac. The colon minimally protrudes into a ventral abdominal wall hernia but is not dilated. The appendix is not dilated. No significant diverticulosis. Peritoneum: There is edema in the mid abdomen mesentery. No pneumoperitoneum is demonstrated. Ventral Wall: Ventral abdominal wall hernia. This is the site bowel obstruction. There is a small amount of fluid in the hernia sac. There is subcutaneous edema. Abdominal Nodes: No retroperitoneal or mesenteric adenopathy by size criteria. Vessels: Aorta and inferior vena cava are normal in size. PELVIS: Pelvic Organs: Unremarkable. Bladder: Only partially distended limiting evaluation. Pelvic Nodes: Mildly prominent left groin node measuring 1.1 cm, (2), not significantly changed. Miscellaneous: Suspect fat containing inguinal hernias. Bones: There is a small focus of sclerosis at the T11 vertebral body posterior elements on the right, (07/12), unchanged since 2019. No additional sclerotic foci identified. DDD. IMPRESSION: 1. Small bowel obstruction due to ventral abdominal wall hernia. There is edema within the mid abdomen mesentery, fluid within the hernia sac, and subcutaneous ventral abdominal wall. 2. Complex ventral abdominal wall hernias. 3. Small nonobstructing kidney stones. 4. Right vertebral body posterior elements sclerotic focus is unchanged compared to 2019. Comment: Findings were discussed with Cortney Servin at the time of dictation. Dictated by: Audi Amin M.D. on 04/28/2021 at 0:07 Approved by: Audi Amin M.D. on 04/28/2021 at 0:21
[2021-04-27] MEDS: PIPERACILLIN/TAZO 4.5 GM in SODIUM CHLORIDE 0.9% 100 ML 200 ML IV (23:35)
[2021-04-27] MEDS: SODIUM CHLORIDE 0.9% 1,000 ML 1000 ML IV (23:36)
[2021-04-27 23:40] VITALS: BP 134/82; PULSE 107; RESP 12; O2SAT 94
[2021-04-27 23:44] LABS: COVID19 -Nasal RAPID Negative (Negative)
[2021-04-28] VITALS (9 sets, daily range): BP systolic 132–191; BP diastolic 57–107; PULSE 97–116; RESP 16–24; TEMP 36.6–36.9; O2SAT 92–97; BMI 46.9
[2021-04-28 00:46] LABS: Lactate (Lactic Acid) 1.8 mmol/L (0.7-2.1)
[2021-04-28 01:18] LABS: COVID19 - ADMIT (NP swab/PCR) Negative (Negative)
--- NOTE | 2021-04-28 01:57 | DI.RAD.S_ITS ---
PROCEDURE: XR CHEST 1V INDICATIONS: To verify NG tube placement TECHNIQUE: One view of the chest was acquired. COMPARISON: None. FINDINGS: Surgical changes and devices: Presence of NG tube noted. Distal tip and side port of the NG tube are not visualized cannot be localized. Lungs and pleura: Patchy opacities noted in the right lung base. No pleural effusions or pneumothorax. Mediastinum: Mediastinal contours appear normal. Heart size is normal. Bones and chest wall: No suspicious bony lesions. Overlying soft tissues appear unremarkable. IMPRESSION: Distal aspect of the NG tube is not visualized and cannot be evaluated. Recommend repeat imaging for definitive assessment of NG tube placement. Dictated by: Suyapa Vergara MD, PhD on 04/28/2021 at 8:10 Approved by: Suyapa Vergara MD, PhD on 04/28/2021 at 8:11
[2021-04-28] MEDS: LACTATED RINGERS 1,000 ML 150 ML IV ×3 (02:09→15:29)
--- NOTE | 2021-04-28 02:48 | PC.NURSE ---
Patient arrived from the ED via wheelchair at 0133. Patient is A/O and on RA while awake but does use 2L NC while sleeping. Patient had EG tube placed in ED but no xray was done so one was completed after arriving to the unit. Patient denied pain and was very sleeping from medications given downstairs. Pt would wake when spoken to but would quickly fall back asleep. Patient did not want to complete admission assessment questions at this time and did not answer nurses questions. Will attempt again when patient is more awake. Provider Dr Davis was called to confirm that a second dose of Zosyn was not needed at this time and that the alexander could be placed later this morning due to the patient wanting to rest. Bed is in lowest locked position, call light is within reach, and patient resting comfortably in bed.
[2021-04-28 04:19] LABS: Appearance Urine UA CLEAR; Bilirubin Urine UA NEGATIVE (NEGATIVE); Color Urine UA YELLOW; Glucose Urine UA NEGATIVE (Negative); Ketones Urine UA NEGATIVE (NEGATIVE); Leukocyte Esterase Urine UA NEGATIVE (NEGATIVE); Nitrite Urine UA NEGATIVE (Negative); Occult Blood Urine UA 1+ (Negative); Protein Urine UA 1+ (Negative); Urobilinogen Urine UA 0.2 E.U./dL (0.2)
[2021-04-28 04:40] LABS: Bacteria Urine None Seen; Culture Indicated Urine Cult Not Indicated; RBC Urine 1-5/HPF (0-5/HPF); WBC Urine None Seen (0-5/HPF)
[2021-04-28] MEDS: PIPERACILLIN/TAZO 4.5 GM in SODIUM CHLORIDE 0.9% 100 ML 200 ML IV (07:12)
[2021-04-28 08:18] LABS: Add Manual Diff / Slide Review NO; Basophils Absolute Auto 0 /uL (0-100); Basophils Percent Auto 0.1 % (0-2); Eosinophils Absolute Auto 0 /uL (0-450); Eosinophils Percent Auto 0.1 % (2-4); Hematocrit 43.8 % (41-53); Hemoglobin 14.3 g/dL (13.5-17.5); Lymphocytes Absolute Auto 1800 /uL (1100-4500); Lymphocytes Percent Auto 8.1 % (25-40); Mean Corpuscular HGB Conc 32.7 % (30-36); Mean Corpuscular Hemoglobin 27.3 PG (26-34); Mean Corpuscular Volume 83.4 fL (80-100); Monocytes Absolute Auto 2200 /uL (0-900); Monocytes Percent Auto 9.6 % (3-14); Neutrophils Absolute Auto 18500 /uL (1500-7000); Neutrophils Percent Auto 82.1 % (50-75); Platelet Count 273 X10^3/uL (150-400); Red Blood Cell Count 5.25 X10^6/uL (4.5-5.9); Red Cell Distribution Width 16.3 % (11.6-14.8); White Blood Cell Count 22.6 X10^3/uL (4.5-11.0)
[2021-04-28 08:42] LABS: Alanine Aminotransferase 18 IU/L (<50); Albumin 3.8 g/dL (3.5-5.0); Albumin Globulin Ratio 1.1 (1.0-2.8); Alkaline Phosphatase 67 U/L (38-126); Aspartate Aminotransferase 24 IU/L (17-59); BUN Creatinine Ratio 17.1 (6-22); Bilirubin Total 2.8 mg/dL (0.2-1.3); Blood Urea Nitrogen 20 mg/dL (9-20); Carbon Dioxide 28 mmol/L (22-32); Chloride 101 mmol/L (98-107); Estimated Glomerular Filt Rate > 60.0 mL/min (>60); Globulin 3.4 g/dL (1.7-4.1); Glucose 144 mg/dL (70-100); Potassium 4.4 mmol/L (3.4-5.1); Sodium 136 mmol/L (137-145); Total Protein 7.2 g/dL (6.3-8.2)
[2021-04-28 08:50] LABS: HEMOLYSIS 53 (0-50)
[2021-04-28 08:51] LABS: NT-proBNP (BNP-Adult 18+) 1340 pg/mL (<125)
--- NOTE | 2021-04-28 09:49 | P.HP_ITS ---
History of Present Illness History of Present Illness Date Patient Seen: 04/28/21 Time Patient Seen: 09:49 Date of Onset of Symptoms: 04/25/21 Chief complaint: STOMACH PAIN/VOMITTING Narrative: Known abdominal wall hernias, 3 days of abdominal pain, vomiting and no BM, no Flatus. He has had other episodes that he was able to reduce. Now he feels better, NGT in place. Narcotic works for pain. Patient History Medical History Duodenal ulcer perforation Kidney stones Tobacco use Surgical History History of arthroscopic knee surgery Family & Social History Social History: household members significant other Prior Living Arrangements Mobile home Safety & Behavioral: Feels Safe in Current Yes Environment Been Physically Hurt or No Threatened By a Person Suicidal Ideation Description None Suicide Plan Description No Plan Tobacco & Substance use: Tobacco type cigarettes,cannabis/marijuana Smoking Status Current every day smoker alcohol intake never alcohol intake frequency 0-2 drinks per day Substance Use Type marijuana,opiates,methamphetamine Meds Home Medications and Allergies Home Medications Medication Instructions Recorded Confirmed Type No Known Home Medications 04/28/21 04/28/21 History Allergies Allergy/AdvReac Type Severity Reaction Status Date / Time No Known Drug Allergies Allergy Verified 12/16/18 07:58 Review of Systems Review of Systems ROS: Yes All systems reviewed with the patient and are negative except as otherwise documented Exam Vital Signs (past 8 hours): - 04/28/21 07:40 Temperature 98.4 F Pulse Rate 108 H Respiratory Rate 18 Blood Pressure 135/57 L Pulse Oximetry 93 Oxygen Delivery Method Room Air,Nasal Cannula Oxygen Flow Rate 0 Const General: disheveled Nutritional Appearance: overweight Orientation: alert [facility] Head: normocephalic and atraumatic Eyes Sclera: sclerae normal Neck Neck: trachea midline Chest Chest: normal inspection of the chest Resp Effort & Inspection: normal respiratory effort and able to speak in complete sentences Cardio Rate: tachycardic Rhythm: regular rhythm GI Inspection: obesity, striae and visible herniation Palpation: soft, firm (in area of herniation but not undewly tender) and tender (mild and generalized) Skin General: crusts, dry skin and ecchymosis Neuro General: patient alert, patient awake and patient oriented x3 Cognition: normal cognition Extrem General: pedal edema Psych Appearance: disheveled Speech and Movement: restless Affect: indifferent Attitude: cooperative Judgment: fair Objective Labs Result Diagrams: 04/28/21 08:05 04/28/21 08:05 Labs: Laboratory Results - last 24 hr 04/27/21 04/27/21 04/27/21 22:25 22:25 22:27 WBC 31.8 H* RBC 6.00 H Hgb 16.1 Hct 49.3 MCV 82.2 MCH 26.9 MCHC 32.7 RDW 16.2 H Plt Count 409 H Neut % (Auto) Not Reportable Lymph % (Auto) Not Reportable [place] % (Auto) Not Reportable Eos % (Auto) Not Reportable Baso % (Auto) Not Reportable Neut # (Auto) Lymph # (Auto) Not Reportable [place] # (Auto) Not Reportable Eos # (Auto) Baso # (Auto) Not Reportable Total Counted 100 Seg Neutrophils % 72.0 H Band Neutrophils % 9.0 H Lymphocytes % (Manual) 6.0 L Monocytes % (Manual) 12.0 H Metamyelocytes % 1.0 H Neutrophils # (Manual) 25684 H Platelet Estimate Adequate on smear RBC Morphology Normal morphology Sodium 134 L Potassium 4.3 Chloride 99 Carbon Dioxide 25 BUN 17 Creatinine 1.45 H Estimated GFR 51.7 L BUN/Creatinine Ratio 11.7 Glucose 165 H Lactate Calcium 10.2 Total Bilirubin 2.6 H AST 30 ALT 22 Alkaline Phosphatase 99 Troponin I 0.031 NT-Pro-B Natriuret Pep Total Protein 8.8 H Albumin 4.6 Globulin 4.2 H Albumin/Globulin Ratio 1.1 Lipase 49 Urine Color Urine Appearance Urine pH Ur Specific [place] Urine Protein Urine Glucose (UA) Urine Ketones Urine Occult Blood Urine Nitrate Urine Bilirubin Urine Urobilinogen Ur Leukocyte Esterase Urine RBC Urine WBC Urine Bacteria Ur Culture Indicated? SARS-CoV-2 (PCR) Negative 04/28/21 04/28/21 04/28/21 00:03 00:23 04:00 WBC RBC Hgb Hct MCV MCH MCHC RDW Plt Count Neut % (Auto) Lymph % (Auto) [place] % (Auto) Eos % (Auto) Baso % (Auto) Neut # (Auto) Lymph # (Auto) [place] # (Auto) Eos # (Auto) Baso # (Auto) Total Counted Seg Neutrophils % Band Neutrophils % Lymphocytes % (Manual) Monocytes % (Manual) Metamyelocytes % Neutrophils # (Manual) Platelet Estimate RBC Morphology Sodium Potassium Chloride Carbon Dioxide BUN Creatinine Estimated GFR BUN/Creatinine Ratio Glucose Lactate 1.8 Calcium Total Bilirubin AST ALT Alkaline Phosphatase Troponin I NT-Pro-B Natriuret Pep Total Protein Albumin Globulin Albumin/Globulin Ratio Lipase Urine Color Yellow Urine Appearance Clear Urine pH 5.0 Ur Specific [place] 1.010 Urine Protein 1+ H Urine Glucose (UA) Negative Urine Ketones Negative Urine Occult Blood 1+ H Urine Nitrate Negative Urine Bilirubin Negative Urine Urobilinogen 0.2 Ur Leukocyte Esterase Negative Urine RBC 1-5/hpf Urine WBC None seen Urine Bacteria None seen Ur Culture Indicated? Cult not indicated SARS-CoV-2 (PCR) Negative 04/28/21 04/28/21 08:05 08:05 WBC 22.6 H RBC 5.25 Hgb 14.3 Hct 43.8 MCV 83.4 MCH 27.3 MCHC 32.7 RDW 16.3 H Plt Count 273 Neut % (Auto) 82.1 H Lymph % (Auto) 8.1 L [place] % (Auto) 9.6 Eos % (Auto) 0.1 L Baso % (Auto) 0.1 Neut # (Auto) 49090 H Lymph # (Auto) 1800 [place] # (Auto) 2200 H Eos # (Auto) 0 Baso # (Auto) 0 Total Counted Seg Neutrophils % Band Neutrophils % Lymphocytes % (Manual) Monocytes % (Manual) Metamyelocytes % Neutrophils # (Manual) Platelet Estimate RBC Morphology Sodium 136 L Potassium 4.4 Chloride 101 Carbon Dioxide 28 BUN 20 Creatinine 1.17 Estimated GFR > 60.0 BUN/Creatinine Ratio 17.1 Glucose 144 H Lactate Calcium 9.0 Total Bilirubin 2.8 H AST 24 ALT 18 Alkaline Phosphatase 67 Troponin I NT-Pro-B Natriuret Pep 1340 H Total Protein 7.2 Albumin 3.8 Globulin 3.4 Albumin/Globulin Ratio 1.1 Lipase Urine Color Urine Appearance Urine pH Ur Specific [place] Urine Protein Urine Glucose (UA) Urine Ketones Urine Occult Blood Urine Nitrate Urine Bilirubin Urine Urobilinogen Ur Leukocyte Esterase Urine RBC Urine WBC Urine Bacteria Ur Culture Indicated? SARS-CoV-2 (PCR) Assessment & Plan Assessment & Plan narrative: Incarcerated ventral hernia with SBO isolated elevated Bilirubin Hyperglycemia Obesity with BMI 46.9 Wildly elevated WBC responding to hydration and ??Zosyn Plan: OR for reduction of hernia and possible hernia repair Hgb A1C Insulin sliding scale IV antibiotics for unclear source of leukocytosis COVID-19 COVID-19 status: Negative Time Spent With Patient Critical Care time: I spent a total of [] minutes of critical care time on this patient's care today; this time is exclusive of procedural time.
[2021-04-28] MEDS: PIPERACILLIN/TAZO 4.5 GM in SODIUM CHLORIDE 0.9% 100 ML 25 ML IV ×2 (11:15→17:16)
--- NOTE | 2021-04-28 16:23 | CM.DANOTE ---
DCP/Assessment: Reviewed chart. Patient is a 50yr old male admitted [facility] with abdominal pain. No PCP indicated. Primary payor is 1)[employer] 2)Medicaid. Met with patient and spouse/Vivi at bedside. Patient asleep at time of PLANT ANATOMIST visit. Spouse reports that patient has multiple hernias which is causing SBO. Surgery expected sometime today? Patient and spouse reside in mobile home and are currently staying in [facility]. Sposue reports that they do not have a lot of anything. Currently it is unclear how long patient will remain hospitalized after surgery. Spouse reports that patient is I in ADL's. Patient morbidly obese and is a current every day smoker. Unclear on whether patient drinks alcohol or uses marijuana or any other drugs. Notified spouse that CM team would continue to follow if any d/c planning needs arise. Spouse very appreciative. P: Continue to follow closely. JOYCE Discharge Planning/Care Management CM Discharge Assessment Start: 04/28/21 16:21 Freq: Status: Active Protocol: Document 04/28/21 16:21 [facility] (Rec: 04/28/21 16:23 [facility] [id number]) Discharge Planning Assessment Assigned Recreational Assistant Yeni Alcala, PLANT ANATOMIST Contact Information Vivi King (spouse) ph# [phone] Advance Directives? No History Provided By Patient,Significant Other, Medical Record Prior Living Arrangements Mobile home Household Members significant other Type of transporation used prior to Drives own vehicle admit Independent with ADL's Yes Caregiver for Another No Discharge Plan Home Transportation Arrangement Patient and spouse have automobile. Whiteboard Updated in Patient Room with Yes name and ext. # of Recreational Assistant Review Status In Process Next Review Type Continued Stay Review
--- NOTE | 2021-04-28 17:11 | P.PN_ITS ---
Subjective Subjective Date Patient Seen: 04/28/21 Time Patient Seen: 17:12 Interval history: The patient has had some NG tube output. No flatus. Exam Vital Signs (past 8 hours): - 04/28/21 10:10 04/28/21 11:18 04/28/21 15:20 Pulse Rate 111 H 108 H Respiratory Rate 16 18 Blood Pressure 132/78 134/81 Pulse Oximetry 93 93 93 Oxygen Delivery Method Room Air,Nasal Cannula Oxygen Flow Rate 1 Narrative Exam Narrative: There is no peritonitis. The left incisional ventral hernia is soft. Partially reducible with palpation. Objective Labs Result Diagrams: 04/28/21 08:05 04/28/21 08:05 Labs: Laboratory Results - last 24 hr 04/27/21 04/27/21 04/27/21 22:25 22:25 22:27 WBC 31.8 H* RBC 6.00 H Hgb 16.1 Hct 49.3 MCV 82.2 MCH 26.9 MCHC 32.7 RDW 16.2 H Plt Count 409 H Neut % (Auto) Not Reportable Lymph % (Auto) Not Reportable [place] % (Auto) Not Reportable Eos % (Auto) Not Reportable Baso % (Auto) Not Reportable Neut # (Auto) Lymph # (Auto) Not Reportable [place] # (Auto) Not Reportable Eos # (Auto) Baso # (Auto) Not Reportable Total Counted 100 Seg Neutrophils % 72.0 H Band Neutrophils % 9.0 H Lymphocytes % (Manual) 6.0 L Monocytes % (Manual) 12.0 H Metamyelocytes % 1.0 H Neutrophils # (Manual) 95843 H Platelet Estimate Adequate on smear RBC Morphology Normal morphology Sodium 134 L Potassium 4.3 Chloride 99 Carbon Dioxide 25 BUN 17 Creatinine 1.45 H Estimated GFR 51.7 L BUN/Creatinine Ratio 11.7 Glucose 165 H Lactate Calcium 10.2 Total Bilirubin 2.6 H AST 30 ALT 22 Alkaline Phosphatase 99 Troponin I 0.031 NT-Pro-B Natriuret Pep Total Protein 8.8 H Albumin 4.6 Globulin 4.2 H Albumin/Globulin Ratio 1.1 Lipase 49 Urine Color Urine Appearance Urine pH Ur Specific [place] Urine Protein Urine Glucose (UA) Urine Ketones Urine Occult Blood Urine Nitrate Urine Bilirubin Urine Urobilinogen Ur Leukocyte Esterase Urine RBC Urine WBC Urine Bacteria Ur Culture Indicated? SARS-CoV-2 (PCR) Negative 04/28/21 04/28/21 04/28/21 00:03 00:23 04:00 WBC RBC Hgb Hct MCV MCH MCHC RDW Plt Count Neut % (Auto) Lymph % (Auto) [place] % (Auto) Eos % (Auto) Baso % (Auto) Neut # (Auto) Lymph # (Auto) [place] # (Auto) Eos # (Auto) Baso # (Auto) Total Counted Seg Neutrophils % Band Neutrophils % Lymphocytes % (Manual) Monocytes % (Manual) Metamyelocytes % Neutrophils # (Manual) Platelet Estimate RBC Morphology Sodium Potassium Chloride Carbon Dioxide BUN Creatinine Estimated GFR BUN/Creatinine Ratio Glucose Lactate 1.8 Calcium Total Bilirubin AST ALT Alkaline Phosphatase Troponin I NT-Pro-B Natriuret Pep Total Protein Albumin Globulin Albumin/Globulin Ratio Lipase Urine Color Yellow Urine Appearance Clear Urine pH 5.0 Ur Specific [place] 1.010 Urine Protein 1+ H Urine Glucose (UA) Negative Urine Ketones Negative Urine Occult Blood 1+ H Urine Nitrate Negative Urine Bilirubin Negative Urine Urobilinogen 0.2 Ur Leukocyte Esterase Negative Urine RBC 1-5/hpf Urine WBC None seen Urine Bacteria None seen Ur Culture Indicated? Cult not indicated SARS-CoV-2 (PCR) Negative 04/28/21 04/28/21 08:05 08:05 WBC 22.6 H RBC 5.25 Hgb 14.3 Hct 43.8 MCV 83.4 MCH 27.3 MCHC 32.7 RDW 16.3 H Plt Count 273 Neut % (Auto) 82.1 H Lymph % (Auto) 8.1 L [place] % (Auto) 9.6 Eos % (Auto) 0.1 L Baso % (Auto) 0.1 Neut # (Auto) 84386 H Lymph # (Auto) 1800 [place] # (Auto) 2200 H Eos # (Auto) 0 Baso # (Auto) 0 Total Counted Seg Neutrophils % Band Neutrophils % Lymphocytes % (Manual) Monocytes % (Manual) Metamyelocytes % Neutrophils # (Manual) Platelet Estimate RBC Morphology Sodium 136 L Potassium 4.4 Chloride 101 Carbon Dioxide 28 BUN 20 Creatinine 1.17 Estimated GFR > 60.0 BUN/Creatinine Ratio 17.1 Glucose 144 H Lactate Calcium 9.0 Total Bilirubin 2.8 H AST 24 ALT 18 Alkaline Phosphatase 67 Troponin I NT-Pro-B Natriuret Pep 1340 H Total Protein 7.2 Albumin 3.8 Globulin 3.4 Albumin/Globulin Ratio 1.1 Lipase Urine Color Urine Appearance Urine pH Ur Specific [place] Urine Protein Urine Glucose (UA) Urine Ketones Urine Occult Blood Urine Nitrate Urine Bilirubin Urine Urobilinogen Ur Leukocyte Esterase Urine RBC Urine WBC Urine Bacteria Ur Culture Indicated? SARS-CoV-2 (PCR) [facility] Medical History Duodenal ulcer perforation Kidney stones Tobacco use Surgical History History of arthroscopic knee surgery Social History household members: significant other Smoking Status: Current every day smoker alcohol intake: never Assessment & Plan Assessment and plan (1) Incisional hernia of anterior abdominal wall with obstruction: Status: Acute Plan No suggestion of peritonitis or bowel ischemia at this point. Recommend continued NG tube decompression. Eventually the hernia may be completely red ucible in surgery could be avoided. Time Spent With Patient Critical Care time: I spent a total of [] minutes of critical care time on this patient's care today; this time is exclusive of procedural time.
[2021-04-28 20:05] LABS: Add Manual Diff / Slide Review NO; Basophils Absolute Auto 100 /uL (0-100); Basophils Percent Auto 0.4 % (0-2); Eosinophils Absolute Auto 100 /uL (0-450); Eosinophils Percent Auto 0.3 % (2-4); Hematocrit 40.5 % (41-53); Hemoglobin 13.3 g/dL (13.5-17.5); Lymphocytes Absolute Auto 1300 /uL (1100-4500); Lymphocytes Percent Auto 7.1 % (25-40); Mean Corpuscular HGB Conc 32.8 % (30-36); Mean Corpuscular Volume 82.4 fL (80-100); Monocytes Absolute Auto 1700 /uL (0-900); Monocytes Percent Auto 9.1 % (3-14); Neutrophils Absolute Auto 15700 /uL (1500-7000); Neutrophils Percent Auto 83.1 % (50-75); Platelet Count 270 X10^3/uL (150-400); Red Blood Cell Count 4.92 X10^6/uL (4.5-5.9); Red Cell Distribution Width 16.5 % (11.6-14.8); White Blood Cell Count 18.9 X10^3/uL (4.5-11.0)
[2021-04-28 20:12] LABS: Blood Urea Nitrogen 18 mg/dL (9-20); Calcium 8.9 mg/dL (8.4-10.2); Carbon Dioxide 33 mmol/L (22-32); Chloride 101 mmol/L (98-107); Estimated Glomerular Filt Rate > 60.0 mL/min (>60); Glucose 128 mg/dL (70-100); HEMOLYSIS < 15 (0-50); Potassium 3.8 mmol/L (3.4-5.1); Sodium 140 mmol/L (137-145)
[2021-04-28] MEDS: atenoloL 25 MG TABLET PO (21:54)
[2021-04-29] VITALS (14 sets, daily range): BP systolic 123–194; BP diastolic 71–119; PULSE 91–112; RESP 12–25; TEMP 36.4–38; O2SAT 88–100; BMI 46.9
--- NOTE | 2021-04-29 | PATH_ITS ---
[facility] Accession Number: [id number] . 01 Material submitted: . small bowel - SMALL BOWEL . 01 Clinical history: . STOMACH PAIN/VOMITTING . 02 Diagnosis: Small Bowel, Resection: Segment of small bowel with mural abscess and serositis, consistent with clinical history of incarcerated ventral hernia. No evidence of neoplasm. [facility]V 05/02/2021 1457 Local . 02 Electronically signed: . José Miguel San MD, PhD, Pathologist NPI- [id number] . 01 Gross description: . The specimen is received in formalin labeled small bowel and consists of a 20.0 cm in length x 4.0 cm in diameter adhesed portion of small bowel with one stapled margin and an opposing open margin with an undesignated suture. The serosa is sauceda-pink to pink-red with fibrinous adhesions and adherent purulent exudate. The attached adipose tissue is ragged and thickened with purulent exudate. Opening reveals a sauceda-pink mucosa with normal mucosal folds. The wall thickness ranges from 0.1 to 0.3 cm. Sectioning through the attached adipose tissue reveals sauceda-pink to sauceda-white cut surfaces. Grubber sections are submitted. . A1 - Grubber perpendicular sections of open margin with undesignated suture. A2 - Grubber sections of stapled margin (blue). A3-A5 - Grubber small intestine. A6- Grubber attached adipose tissue with purulent exudate. ([id number]) /[facility] 04/30/2021 1732 Local . 02 Pathologist provided ICD-10: K43.0 . 02 CPT . 937943 Performed at: 01 [facility] [address] [place] [address] [address], [place], [place] [id number] MD Titi Yang MD Phone: [phone] Performed at: 02 [facility] [address] [place] [id number] MD Lula Rhodes MD Phone: [phone]
[2021-04-29] MEDS: PIPERACILLIN/TAZO 4.5 GM in SODIUM CHLORIDE 0.9% 100 ML 25 ML IV ×3 (02:21→17:50)
[2021-04-29 06:24] LABS: Add Manual Diff / Slide Review NO; Basophils Absolute Auto 100 /uL (0-100); Basophils Percent Auto 0.5 % (0-2); Eosinophils Absolute Auto 0 /uL (0-450); Eosinophils Percent Auto 0.1 % (2-4); Hematocrit 40.7 % (41-53); Hemoglobin 13.1 g/dL (13.5-17.5); Lymphocytes Absolute Auto 1400 /uL (1100-4500); Lymphocytes Percent Auto 7.1 % (25-40); Mean Corpuscular HGB Conc 32.2 % (30-36); Mean Corpuscular Hemoglobin 26.7 PG (26-34); Mean Corpuscular Volume 82.9 fL (80-100); Monocytes Absolute Auto 1500 /uL (0-900); Monocytes Percent Auto 7.8 % (3-14); Neutrophils Absolute Auto 16300 /uL (1500-7000); Neutrophils Percent Auto 84.5 % (50-75); Platelet Count 262 X10^3/uL (150-400); Red Cell Distribution Width 16.1 % (11.6-14.8); White Blood Cell Count 19.4 X10^3/uL (4.5-11.0)
[2021-04-29 06:40] LABS: Hemoglobin A1C% w Est Avg Glu 5.5 % (4.0-6.0)
[2021-04-29 06:41] LABS: Alanine Aminotransferase 14 IU/L (<50); Albumin 3.5 g/dL (3.5-5.0); Alkaline Phosphatase 71 U/L (38-126); Aspartate Aminotransferase 17 IU/L (17-59); BUN Creatinine Ratio 14.6 (6-22); Bilirubin Total 1.5 mg/dL (0.2-1.3); Blood Urea Nitrogen 15 mg/dL (9-20); Calcium 9.1 mg/dL (8.4-10.2); Carbon Dioxide 35 mmol/L (22-32); Chloride 101 mmol/L (98-107); Estimated Glomerular Filt Rate > 60.0 mL/min (>60); Globulin 3.4 g/dL (1.7-4.1); Glucose 121 mg/dL (70-100); HEMOLYSIS < 15 (0-50); Potassium 3.6 mmol/L (3.4-5.1); Sodium 139 mmol/L (137-145); Total Protein 6.9 g/dL (6.3-8.2)
[2021-04-29] MEDS: FAMOTIDINE 20 MG/2 ML VIAL 40 MG IV (08:35)
[2021-04-29] MEDS: atenoloL 25 MG TABLET PO (08:35)
[2021-04-29] MEDS: ONDANSETRON 4 MG/2 ML INJ IV (08:36)
[2021-04-29] MEDS: MORPHINE 2 MG/ML INJ IV ×3 (08:36→22:36)
[2021-04-29] MEDS: NICOTINE 14 PATCH 14 MG TOP (10:37)
[2021-04-29] MEDS: LACTATED RINGERS 1,000 ML 150 ML IV ×2 (10:44→19:15)
--- NOTE | 2021-04-29 16:21 | SUR.OPER ---
Supine on padded OR bed, head on pillow, arms secured on padded arm boards at <90 degrees abduction, legs uncrossed, safety belt at thigh, tape over blanket over lower legs.
--- NOTE | 2021-04-29 16:51 | PM.EVENT ---
Event Note Date Patient Seen: 04/29/21 Time Patient Seen: 16:51 Event Note: I discussed the risks of surgery. In particular, given his extreme morbid obesity and smoking status, I emphasized to him and his the high risk of recurrence of the hernia as well as mesh complications such as mesh infection and bowel fistulization, the potential need for an ileostomy or colostomy bag. He would like to proceed.
[2021-04-29] MEDS: BUPIVACAINE 0.25% (PF) VIAL 30 ML INJ (19:05)
--- NOTE | 2021-04-29 19:14 | PM.OP.1 ---
Operative Date/Time/Diagnoses Date of procedure: 04/29/21 Time of procedure: 19:14 Pre-op diagnosis: Incarcerated incisional ventral hernia Post-op diagnosis: same Procedure & Clinicians Procedure: Exploratory laparotomy and small-bowel resection Same procedure as scheduled: Yes Indications: Incarcerated ventral incisional hernia Surgeon: Otilio Walters Acid Purification Equipment Operator: Zeke Valle Click Yes if Unassisted: No Anesthesia Type: General Operative Notes Findings: Incarcerated small bowel with evidence of recent healed perforation Closure Type: not applicable Estimated Blood Loss (mL): 50 Procedure in detail: The patient was on Zosyn. The patient was consented for exploratory laparotomy and possible small-bowel resection. The patient and his significant other were informed of the high risks of complications given his morbid obesity and smoking status including but not limited to recurrence, mesh infection and small bowel fistulization. The patient was brought to the operating room, placed on the table in the supine position, and general endotracheal anesthesia was induced. The abdomen was prepped and draped in the normal fashion and a time-out was performed. We made a midline incision he through the old scar at roughly the level of the largest of the abdominal bulges which was just above into the left of the umbilicus. We carefully dissected down to the hernia sac. We dissected the sac from the surrounding subcutaneous tissues. Because the hernia bulge extended so far to the left we created an additional perpendicular incision to the left side to help us dissect around the lateral aspect of the hernia sac. We were eventually able the dissect the sac from the fascial ring circumferentially. We did enter the sac and there was some murky fluid that we aspirated. We opened the sac and exposed the incarcerated loop of bowel. There was fibrinous exudate along a 20 cm segment of bowel but there is no obvious perforation at the time of the operation suggesting that he had perforated and sealed prior to starting this surgery. We identified the transition point which was a loop of bowel that was exiting the hernia and diving back down into the abdominal cavity. We eventually were able to free the afferent and efferent limbs of bowel. We could see that the bowel in the abdomen appeared healthy and not inflamed. We then resected the segment of small bowel that had been incarcerated and perforated in the hernia and created a [id number] functional end-to-end anastomosis using the linear HYUN stapler with a blue load. We resected the mesentery of the specimen with the LigaSure along with all of the hernia sac. Upon further dissection we could see that there was another hernia just superior into the right which seemed to contain a limb of transverse colon. We left this place as it appeared to be viable and unobstructed. Because of his obesity and significant intra-abdominal pressure we opted not to close the fascial defect. We extended the fascial defect by about 3 cm in an inferior direction so that there would be less likelihood of incarcerating and strangulating another loop of bowel. We closed the skin incision with a running 2 0 nylon. Telfa was were applied over the skin incisions and the abdominal binder was applied. The patient was awakened and brought to recovery. Complications: none Post-operative Condition: stable Disposition: PACU
--- NOTE | 2021-04-29 20:35 | SUR.PHASEI ---
Pt arrived to PACU with oral airway, out at 1926, pt on a simple mask with 02 of 7/l, weaned to nasal cannula at 4/l. NGT to LIS, both Dr. Valle and Dr. Mary aware no xray after NGT replaced prior to coming down to surgery. Also aware of no UOP after surgery. Dr. Mary and Dr. Walters spoke with pt after surgery. Pt asked to go up to room to speak with . Pt denied any nausea or pain. Pt transported up to room. Bed down, locked , SCD's on. NGT to LIS and 02 at 4/l. Pt left with BROCK Momin in stable condition.
[2021-04-30] VITALS (8 sets, daily range): BP systolic 122–146; BP diastolic 67–94; PULSE 93–102; RESP 18–20; TEMP 36.7–37.7; O2SAT 90–96
[2021-04-30] MEDS: PIPERACILLIN/TAZO 4.5 GM in SODIUM CHLORIDE 0.9% 100 ML 25 ML IV ×3 (02:47→18:39)
[2021-04-30] MEDS: LACTATED RINGERS 1,000 ML 150 ML IV ×2 (05:42→21:12)
[2021-04-30] MEDS: atenoloL 25 MG TABLET PO (09:27)
[2021-04-30] MEDS: FAMOTIDINE 20 MG/2 ML VIAL 40 MG IV (09:27)
[2021-04-30] MEDS: NICOTINE 14 PATCH 14 MG TOP (09:28)
--- NOTE | 2021-04-30 12:35 | PM.PNPO.1 ---
Subjective Subjective Date Patient Seen: 04/30/21 Time Patient Seen: 12:35 Interval history: No significant overnight events. Feels better then yesterday. No nausea. +Flatus. Incisional pain. Exam Vital Signs (past 8 hours): - 04/30/21 07:39 04/30/21 09:48 Temperature 99.1 F Pulse Rate 102 H Respiratory Rate 20 Blood Pressure 122/88 Pulse Oximetry 91 93 Oxygen Delivery Method Nasal Cannula Oxygen Flow Rate 4 Narrative Exam Narrative: Gen-Morbidly obese man alert and oriented Abdomen-Soft, dressings clean dry. Ext-WWP Objective Labs Result Diagrams: 05/01/21 05:15 05/01/21 05:15 [facility] Medical History Duodenal ulcer perforation Kidney stones Tobacco use Surgical History History of arthroscopic knee surgery Social History household members: significant other Smoking Status: Current every day smoker alcohol intake: never Assessment & Plan Post-op Postoperative Procedures: Procedures Operation Date: 04/29/21 17:45 Actual Procedure Side Surgeon p Exploratory laparotomy, small bowel resection Otilio Walters MD Postoperative status narrative: 50M POD 1 sp exlap small bowel resection for an incarcerated incisional hernia. -Continue NGT tube to suction until return of bowel function -Abdominal binder
[2021-05-01] VITALS (10 sets, daily range): BP systolic 133–169; BP diastolic 85–103; PULSE 87–100; RESP 17–20; TEMP 36.8–38.7; O2SAT 92–99
[2021-05-01] MEDS: PIPERACILLIN/TAZO 4.5 GM in SODIUM CHLORIDE 0.9% 100 ML 25 ML IV ×3 (02:48→18:16)
[2021-05-01 05:30] LABS: Add Manual Diff / Slide Review NO; Basophils Absolute Auto 0 /uL (0-100); Basophils Percent Auto 0.3 % (0-2); Eosinophils Absolute Auto 200 /uL (0-450); Eosinophils Percent Auto 1.3 % (2-4); Hematocrit 36.5 % (41-53); Lymphocytes Absolute Auto 1500 /uL (1100-4500); Lymphocytes Percent Auto 9.8 % (25-40); Mean Corpuscular HGB Conc 32.9 % (30-36); Mean Corpuscular Hemoglobin 27.2 PG (26-34); Mean Corpuscular Volume 82.6 fL (80-100); Monocytes Absolute Auto 1200 /uL (0-900); Monocytes Percent Auto 7.5 % (3-14); Neutrophils Absolute Auto 12400 /uL (1500-7000); Neutrophils Percent Auto 81.1 % (50-75); Platelet Count 264 X10^3/uL (150-400); Red Blood Cell Count 4.42 X10^6/uL (4.5-5.9); Red Cell Distribution Width 16.3 % (11.6-14.8); White Blood Cell Count 15.3 X10^3/uL (4.5-11.0)
[2021-05-01 05:39] LABS: BUN Creatinine Ratio 13.4 (6-22); Blood Urea Nitrogen 19 mg/dL (9-20); Calcium 8.3 mg/dL (8.4-10.2); Carbon Dioxide 32 mmol/L (22-32); Chloride 99 mmol/L (98-107); Glucose 93 mg/dL (70-100); HEMOLYSIS < 15 (0-50); Potassium 3.5 mmol/L (3.4-5.1); Sodium 137 mmol/L (137-145)
[2021-05-01] MEDS: FAMOTIDINE 20 MG/2 ML VIAL 40 MG IV (08:57)
[2021-05-01] MEDS: atenoloL 25 MG TABLET PO (08:57)
[2021-05-01] MEDS: NICOTINE 14 PATCH 14 MG TOP (08:58)
--- NOTE | 2021-05-01 09:11 | P.PN_ITS ---
Subjective Subjective Date Patient Seen: 05/01/21 Time Patient Seen: 09:12 Interval history: Feels better today and continues to pass flatus Exam Vital Signs (past 8 hours): - 05/01/21 04:00 05/01/21 08:00 Temperature 98.2 F 101.6 F H Pulse Rate 100 H 98 H Respiratory Rate 20 20 Blood Pressure 169/93 H 140/92 H Pulse Oximetry 95 93 Oxygen Delivery Method Nasal Cannula Oxygen Flow Rate 2 Narrative Exam Narrative: Dressings in place without drainage. Abdominal binder in place Objective Labs Result Diagrams: 05/01/21 05:15 05/01/21 05:15 Labs: Laboratory Results - last 24 hr 05/01/21 05/01/21 05:15 05:15 WBC 15.3 H RBC 4.42 L Hgb 12.0 L Hct 36.5 L MCV 82.6 MCH 27.2 MCHC 32.9 RDW 16.3 H Plt Count 264 Neut % (Auto) 81.1 H Lymph % (Auto) 9.8 L [place] % (Auto) 7.5 Eos % (Auto) 1.3 L Baso % (Auto) 0.3 Neut # (Auto) 44350 H Lymph # (Auto) 1500 [place] # (Auto) 1200 H Eos # (Auto) 200 Baso # (Auto) 0 Sodium 137 Potassium 3.5 Chloride 99 Carbon Dioxide 32 BUN 19 Creatinine 1.42 H Estimated GFR 53.0 L BUN/Creatinine Ratio 13.4 Glucose 93 Calcium 8.3 L PFSH Medical History Duodenal ulcer perforation Kidney stones Tobacco use Surgical History History of arthroscopic knee surgery Social History household members: significant other Smoking Status: Current every day smoker alcohol intake: never Assessment & Plan Assessment and plan (1) Postoperative examination: Status: Acute Plan DC NG tube start clear liquids Ambulate Lovenox Time Spent With Patient Critical Care time: I spent a total of [] minutes of critical care time on this patient's care today; this time is exclusive of procedural time.
--- NOTE | 2021-05-01 13:13 | PC.NURSE ---
NGT removed per orders at 1030. Pt now on CLD.
--- NOTE | 2021-05-01 14:03 | CM.DPNOTE ---
DCP Note Reviewed chart. According to Dr Walters-MARIELA NG tube, start clear liquids, Ambulate, Lovenox PT might be helpful once medically appropriate, unless patient ambulating w/jail w/spouse still expected. Patient may benefit from Home health, will discuss w/patient and his spouse JW
[2021-05-01] MEDS: LACTATED RINGERS 1,000 ML 150 ML IV (19:43)
[2021-05-02] MEDS: PIPERACILLIN/TAZO 4.5 GM in SODIUM CHLORIDE 0.9% 100 ML 25 ML IV ×3 (01:58→17:45)
--- NOTE | 2021-05-02 03:37 | PC.NURSE ---
Pt is A&OX4, able to make needs known. O22L NC while sleeping. Pt has large body habitus and severe JESSI with long periods of apnea and tend to desats to low 80 but has been witnessed at 63% on RA with good pleth waveform. When awake pt sats 96% on RA. pt ids hwoever very fatigued and does not stay awak e very long through the evening and is hard to awaken at NOC. Pt is able to stand at bedside to void in urinal, large amounts of lisandro UOP. Pt tolerating clear liquid diet and denies c/o pain or nausea.
[2021-05-02 04:30] VITALS: BP 139/96; PULSE 93; RESP 22; TEMP 36.7; O2SAT 96
[2021-05-02 08:00] VITALS: BP 138/92; PULSE 89; RESP 16; TEMP 36.9; O2SAT 96
[2021-05-02 08:04] LABS: Add Manual Diff / Slide Review NO; Basophils Absolute Auto 100 /uL (0-100); Basophils Percent Auto 0.8 % (0-2); Eosinophils Absolute Auto 400 /uL (0-450); Eosinophils Percent Auto 3.7 % (2-4); Hematocrit 35.8 % (41-53); Hemoglobin 11.8 g/dL (13.5-17.5); Lymphocytes Absolute Auto 1300 /uL (1100-4500); Lymphocytes Percent Auto 12.5 % (25-40); Mean Corpuscular HGB Conc 32.9 % (30-36); Mean Corpuscular Hemoglobin 27.6 PG (26-34); Mean Corpuscular Volume 83.8 fL (80-100); Monocytes Absolute Auto 900 /uL (0-900); Monocytes Percent Auto 8.7 % (3-14); Neutrophils Absolute Auto 7600 /uL (1500-7000); Neutrophils Percent Auto 74.3 % (50-75); Platelet Count 280 X10^3/uL (150-400); Red Blood Cell Count 4.27 X10^6/uL (4.5-5.9); Red Cell Distribution Width 16.3 % (11.6-14.8); White Blood Cell Count 10.2 X10^3/uL (4.5-11.0)
[2021-05-02 08:16] LABS: BUN Creatinine Ratio 10.1 (6-22); Blood Urea Nitrogen 12 mg/dL (9-20); Calcium 8.6 mg/dL (8.4-10.2); Carbon Dioxide 31 mmol/L (22-32); Chloride 104 mmol/L (98-107); Estimated Glomerular Filt Rate > 60.0 mL/min (>60); Glucose 119 mg/dL (70-100); HEMOLYSIS < 15 (0-50); Potassium 3.6 mmol/L (3.4-5.1); Sodium 139 mmol/L (137-145)
[2021-05-02] MEDS: LACTATED RINGERS 1,000 ML 150 ML IV (08:56)
[2021-05-02] MEDS: ENOXAPARIN 40 MG/0.4 ML SYRINGE SUBCUT ×2 (10:05→21:30)
[2021-05-02] MEDS: atenoloL 25 MG TABLET PO (10:05)
[2021-05-02] MEDS: NICOTINE 14 PATCH 14 MG TOP (10:06)
[2021-05-02] MEDS: FAMOTIDINE 20 MG/2 ML VIAL 40 MG IV (10:06)
[2021-05-02 10:45] VITALS: BP 130/87; PULSE 88; RESP 18; TEMP 36.3; O2SAT 96
--- NOTE | 2021-05-02 13:17 | CM.DPNOTE ---
DCP Note Spoke w/patient and spouse Vivi this afternoon, reviewed DCP. Patient remains on clear liquids today. Spouse Vivi continues to plan for patient's DC home w/her and denies the need for HH No CARRY OUT CLERK needs identified at this time. Patient/spouse know to contact this team if any DC needs or questions arise JW
--- NOTE | 2021-05-02 18:12 | P.PN_ITS ---
Subjective Subjective Date Patient Seen: 05/02/21 Time Patient Seen: 18:12 Interval history: Tolerating clear liquid diet and having bowel function. No complaints. Exam Vital Signs (past 8 hours): - 05/02/21 10:45 Temperature 97.4 F L Pulse Rate 88 Respiratory Rate 18 Blood Pressure 130/87 Pulse Oximetry 96 Oxygen Delivery Method Nasal Cannula Oxygen Flow Rate 0 Narrative Exam Narrative: The dressing and abdominal binder remain in place with no obvious drainage Objective Labs Result Diagrams: 05/02/21 07:05 05/02/21 07:05 Labs: Laboratory Results - last 24 hr 05/02/21 05/02/21 07:05 07:05 WBC 10.2 RBC 4.27 L Hgb 11.8 L Hct 35.8 L MCV 83.8 MCH 27.6 MCHC 32.9 RDW 16.3 H Plt Count 280 Neut % (Auto) 74.3 Lymph % (Auto) 12.5 L [place] % (Auto) 8.7 Eos % (Auto) 3.7 Baso % (Auto) 0.8 Neut # (Auto) 7600 H Lymph # (Auto) 1300 [place] # (Auto) 900 Eos # (Auto) 400 Baso # (Auto) 100 Sodium 139 Potassium 3.6 Chloride 104 Carbon Dioxide 31 BUN 12 Creatinine 1.19 Estimated GFR > 60.0 BUN/Creatinine Ratio 10.1 Glucose 119 H Calcium 8.6 PFSH Medical History Duodenal ulcer perforation Kidney stones Tobacco use Surgical History History of arthroscopic knee surgery Social History household members: significant other Smoking Status: Current every day smoker alcohol intake: never Assessment & Plan Assessment and plan (1) Postoperative examination: Status: Acute Plan Advance diet Time Spent With Patient Critical Care time: I spent a total of [] minutes of critical care time on this patient's care today; this time is exclusive of procedural time.
[2021-05-02 20:00] VITALS: BP 147/91; PULSE 94; RESP 22; TEMP 37.4; O2SAT 95
[2021-05-03] VITALS: BP 144/92; PULSE 90; RESP 18; TEMP 36.8; O2SAT 97
[2021-05-03] MEDS: PIPERACILLIN/TAZO 4.5 GM in SODIUM CHLORIDE 0.9% 100 ML 25 ML IV ×2 (01:15→09:48)
[2021-05-03 04:00] VITALS: BP 141/86; PULSE 85; RESP 18; TEMP 36.8; O2SAT 98
[2021-05-03 05:39] LABS: Add Manual Diff / Slide Review NO; Basophils Absolute Auto 100 /uL (0-100); Basophils Percent Auto 0.8 % (0-2); Eosinophils Absolute Auto 500 /uL (0-450); Eosinophils Percent Auto 4.6 % (2-4); Hematocrit 36.6 % (41-53); Hemoglobin 11.8 g/dL (13.5-17.5); Lymphocytes Absolute Auto 1700 /uL (1100-4500); Lymphocytes Percent Auto 15.7 % (25-40); Mean Corpuscular HGB Conc 32.4 % (30-36); Mean Corpuscular Hemoglobin 27.3 PG (26-34); Mean Corpuscular Volume 84.4 fL (80-100); Monocytes Absolute Auto 900 /uL (0-900); Monocytes Percent Auto 8.3 % (3-14); Neutrophils Absolute Auto 7500 /uL (1500-7000); Neutrophils Percent Auto 70.6 % (50-75); Platelet Count 300 X10^3/uL (150-400); Red Blood Cell Count 4.34 X10^6/uL (4.5-5.9); Red Cell Distribution Width 16.4 % (11.6-14.8); White Blood Cell Count 10.7 X10^3/uL (4.5-11.0)
[2021-05-03 05:50] LABS: BUN Creatinine Ratio 7.8 (6-22); Blood Urea Nitrogen 9 mg/dL (9-20); Calcium 8.8 mg/dL (8.4-10.2); Carbon Dioxide 29 mmol/L (22-32); Chloride 107 mmol/L (98-107); Estimated Glomerular Filt Rate > 60.0 mL/min (>60); Glucose 97 mg/dL (70-100); HEMOLYSIS < 15 (0-50); Potassium 3.6 mmol/L (3.4-5.1); Sodium 140 mmol/L (137-145)
[2021-05-03 09:20] VITALS: BP 152/82; PULSE 98; RESP 17; TEMP 36.7; O2SAT 98
[2021-05-03] MEDS: ENOXAPARIN 40 MG/0.4 ML SYRINGE SUBCUT (09:45)
[2021-05-03] MEDS: atenoloL 25 MG TABLET PO (09:47)
[2021-05-03] MEDS: NICOTINE 14 PATCH 14 MG TOP (09:47)
[2021-05-03] MEDS: FAMOTIDINE 20 MG/2 ML VIAL 40 MG IV (09:47)
[2021-05-03] MEDS: SODIUM CHLORIDE 0.9% 250 ML 21 ML IV (09:48)
[2021-05-03 12:55] VITALS: BP 142/90; PULSE 88; RESP 18; TEMP 36.6; O2SAT 96
--- NOTE | 2021-05-03 13:11 | PM.PN.1 ---
Subjective Subjective Date Patient Seen: 05/03/21 Time Patient Seen: 13:11 Interval history: Tolerating diet. Having bowel function. No complaints. Wants to go home. Exam Vital Signs (past 8 hours): - 05/03/21 09:20 Temperature 98.1 F Pulse Rate 98 H Respiratory Rate 17 Blood Pressure 152/82 H Pulse Oximetry 98 Oxygen Delivery Method Nasal Cannula Oxygen Flow Rate 0 Const General: No acute distress GI Inspection: obesity Objective Labs Result Diagrams: 05/03/21 04:50 05/03/21 04:50 Labs: Laboratory Results - last 24 hr 05/03/21 05/03/21 04:50 04:50 WBC 10.7 RBC 4.34 L Hgb 11.8 L Hct 36.6 L MCV 84.4 MCH 27.3 MCHC 32.4 RDW 16.4 H Plt Count 300 Neut % (Auto) 70.6 Lymph % (Auto) 15.7 L [place] % (Auto) 8.3 Eos % (Auto) 4.6 H Baso % (Auto) 0.8 Neut # (Auto) 7500 H Lymph # (Auto) 1700 [place] # (Auto) 900 Eos # (Auto) 500 H Baso # (Auto) 100 Sodium 140 Potassium 3.6 Chloride 107 Carbon Dioxide 29 BUN 9 Creatinine 1.15 Estimated GFR > 60.0 BUN/Creatinine Ratio 7.8 Glucose 97 Calcium 8.8 PFSH Medical History Duodenal ulcer perforation Kidney stones Tobacco use Surgical History History of arthroscopic knee surgery Social History household members: significant other Smoking Status: Current every day smoker alcohol intake: never Assessment & Plan Assessment and plan (1) Postoperative examination: Status: Acute Plan Home today Time Spent With Patient Critical Care time: I spent a total of [] minutes of critical care time on this patient's care today; this time is exclusive of procedural time.
--- NOTE | 2021-05-03 13:18 | PM.DS.1 ---
History of Present Illness History of Present Illness Chief complaint: STOMACH PAIN/VOMITTING Discharge Providers Provider Date of admission: 04/28/21 00:54 Discharge Date: 05/03/21 Consults: 04/28/21 09:00 Consult to Respiratory Therapy Evaluate & Treat Comment: Physician Instructions: Evaluate and treat Discharge provider: Otilio Walters MD Summary Hospital Course Discharge Diagnosis: Incarcerated incisional hernia Hospital Course: The patient was admitted with an incarcerated incisional ventral hernia. He was taken to the operating room on April 29, 2021 and underwent a small-bowel resection. His fascia was not closed due to his extreme obesity and abdominal distension. Skin was sutured closed. He recovered well and his diet was advanced. He was discharged home on 05/03/2021 with instructions to continue wearing his abdominal binder. He was told to avoid heavy lifting and strenuous activity until his follow-up visit. Exam Vital Signs (past 8 hours): - 05/03/21 09:20 05/03/21 12:55 Temperature 98.1 F 97.8 F Pulse Rate 98 H 88 Respiratory Rate 17 18 Blood Pressure 152/82 H 142/90 H Pulse Oximetry 98 96 Oxygen Delivery Method Nasal Cannula Oxygen Flow Rate 0 Objective Labs Result Diagrams: 05/03/21 04:50 05/03/21 04:50 Labs: Laboratory Results - last 24 hr 05/03/21 05/03/21 04:50 04:50 WBC 10.7 RBC 4.34 L Hgb 11.8 L Hct 36.6 L MCV 84.4 MCH 27.3 MCHC 32.4 RDW 16.4 H Plt Count 300 Neut % (Auto) 70.6 Lymph % (Auto) 15.7 L [place] % (Auto) 8.3 Eos % (Auto) 4.6 H Baso % (Auto) 0.8 Neut # (Auto) 7500 H Lymph # (Auto) 1700 [place] # (Auto) 900 Eos # (Auto) 500 H Baso # (Auto) 100 Sodium 140 Potassium 3.6 Chloride 107 Carbon Dioxide 29 BUN 9 Creatinine 1.15 Estimated GFR > 60.0 BUN/Creatinine Ratio 7.8 Glucose 97 Calcium 8.8 PFSH Medical History Duodenal ulcer perforation Kidney stones Tobacco use Surgical History History of arthroscopic knee surgery Social History household members: significant other Smoking Status: Current every day smoker alcohol intake: never Discharge Plan Discharge Plan Provider Discharge Comment: Wear abdominal binder until follow-up visit. Leave dressings over incision until follow-up. No heavy lifting or strenuous activity until follow-up. Discharge orders & Medications Discharge Orders: Discharge (Order); Ordered 05/03/21 Ordered By: Otilio Walters Prescriptions: No Action No Known Home Medications 0RF Diet/Activity/Treatments Diet: Regular Skin/Wound/Dressing Care Report to your healthcare provider any signs of infection, such as:: chills, fever, night sweats, increased pain, unusual drainage and unusual redness
--- NOTE | 2021-05-03 14:16 | PC.NURSE ---
Discharged by provider. IV removed. Pt dressed. This RN advised pt to obtain care with PCP to address his several health issues. Advised pt to keep drsg and binder in place until follow-up visit. Pt verbalized understanding of all instructions. Escorted out via w/c to private vehicle. Pt left with all personal belongings in stable condition.
== END 2021-05-03 14:05 | disposition home or self-care (01) | DRG 221 ==
LOC: ED 04-28 00:41 → AC 04-28 00:56
PROVIDERS: Surgery; Admitting Provider Surgery; Emergency Provider Emergency Medicine; Referring Provider Emergency Medicine; Visit Provider Surgery
PROC: 0DB80ZZ Excision of Small Intestine, Open Approach (ICD-10-PCS; principal; 2021-04-29 17:45)
DX: K43.0 Incisional hernia with obstruction, without gangrene (principal); E66.01 Morbid (severe) obesity due to excess calories; Z68.42 Body mass index [BMI] 45.0-49.9, adult; F17.210 Nicotine dependence, cigarettes, uncomplicated; Z20.822 Contact with and (suspected) exposure to COVID-19
CPT/HCPCS: 36415; 71045; 74177; 80048; 80053; 81001; 82962; 83036; 83605; 83690; 83880; 84484; 85007; 85025; 87040; 87635; 93005; 93010; 94760; 96365; 96375; 99284; C9803; J1170; J1650; J1815; J2270; J2405; J2543; J2704; J3010; Q9967